=== PATIENT | male | born 1935 | race Caucasian/White ===

== ENCOUNTER → 2017-01-16 | Outpatient (CLI) | payer MEDICARE, MEDICAID ==
[~2017-01-16] MED LIST: ACET325T49 PO; ASP81CT PO; ATOR40TA PO; ATOR80TA PO; FENO135C PO; PGLT30T PO; PHN100C; RSG4T; SIMV40TA4 PO; SITA100T; WRF10T PO; WRF1T; WRF5T PO
[2017-01-16 10:54] LABS: BASOPHILS # (AUTO) 0.1 10^3/uL (0.0-0.1); BASOPHILS % (AUTO) 1 % (0-10); EOSINOPHILS # (AUTO) 0.3 10^3/uL (0.0-0.3); EOSINOPHILS % (AUTO) 2 % (0-10); LYMPHOCYTES # (AUTO) 1.9 X 10^3 (1.0-4.0); LYMPHOCYTES % (AUTO) 16 % (12-44); MEAN CORPUSCULAR HEMOGLOBIN 28 PG (25-34); MEAN CORPUSCULAR HGB CONC 34 G/DL (32-36); MEAN CORPUSCULAR VOLUME 84 FL (80-99); MEAN PLATELET VOLUME 9.9 FL (7.4-10.4); MONOCYTES # (AUTO) 1.6 X 10^3 (0.0-1.0); MONOCYTES % (AUTO) 14 % (0-12); NEUTROPHILS # (AUTO) 7.7 X 10^3 (1.8-7.8); NEUTROPHILS % (AUTO) 67 % (42-75); PLATELET COUNT 180 10^3/uL (130-400); RED BLOOD COUNT 4.55 10^6/uL (4.35-5.85); WHITE BLOOD COUNT 11.5 10^3/uL (4.3-11.0)
[2017-01-16 11:09] LABS: PROTHROMBIN TIME PATIENT 22.9 SEC (12.2-14.7)
[2017-01-16 11:20] LABS: ALANINE AMINOTRANSFERASE 19 U/L (0-55); ALBUMIN 3.8 GM/DL (3.2-4.5); ANION GAP 8 MMOL/L (5-14); ASPARTATE AMINO TRANSFERASE 20 U/L (5-34); BILIRUBIN,TOTAL 0.4 MG/DL (0.1-1.0); BLOOD UREA NITROGEN 14 MG/DL (7-18); BUN/CREATININE RATIO 17; CALCIUM 9.3 MG/DL (8.5-10.1); CARBON DIOXIDE 23 MMOL/L (21-32); CHLORIDE 105 MMOL/L (98-107); CHOLESTEROL 128 MG/DL (< 200); CREATININE SERUM 0.83 MG/DL (0.60-1.30); DIRECT LDL 58 MG/DL (1-129); GFR ESTIMATED > 60; GLUCOSE 179 MG/DL (70-105); SODIUM 136 MMOL/L (135-145); TOTAL PROTEIN 7.1 GM/DL (6.4-8.2); TRIGLYCERIDES 283 MG/DL (<150); VLDL CHOLESTEROL 57 MG/DL (5-40)
== END ==
LOC: LAB 10:31
PROVIDERS: ATTEND Internal Medicine Cardiovascular Disease
DX: I25.10 Atherosclerotic heart disease of native coronary artery without angina pectoris (principal); I65.23 Occlusion and stenosis of bilateral carotid arteries; I44.2 Atrioventricular block, complete; I70.213 Atherosclerosis of native arteries of extremities with intermittent claudication, bilateral legs; I35.0 Nonrheumatic aortic (valve) stenosis; Z72.0 Tobacco use; Z95.0 Presence of cardiac pacemaker
CPT/HCPCS: 36415; 80053; 80061; 85025; 85610

== ENCOUNTER 2017-01-19 06:53 | Day surgery (SDC) | payer MEDICARE, MEDICAID ==
[2017-01-19] VITALS (14 sets, daily range): BP systolic 115–171; BP diastolic 56–85
[~2017-01-19] VITALS: Ht 172.7 cm; Wt 82.6 kg
[~2017-01-19 06:53] MED LIST changes: -ACET325T49 PO; +HEParin 1000 UNIT/ML (10ML VIAL) FOR BOLUS ONE; +NS IV 1000 ML 3,000 ML ONE; -SIMV40TA4 PO
--- OUTSIDE RECORDS SUMMARY | 2017-01-19 07:04 | XMS REPORT | Continuity of Care Document ---
Author Author [facility] Organization [facility] Address Unknown Phone Unavailable Allergies Active Description Code Type Severity Reaction Onset Reported/Identified Relationship to Patient Clinical Status Yes No Known Drug Allergies [id number] Drug Allergy Mild N/A 02/24/2009 Medications Problems Procedures Results Encounters ACCT No. Visit Date/Time Discharge Status Pt. Type Provider Facility Loc./Unit Complaint [id number] 06/17/2013 10:03:00 2013 00:01:00 DIS Outpatient [id number] 06/17/2013 10:05:00 2013 23:59:59 CLS Outpatient [id number] 03/09/2013 15:03:00 2013 00:01:00 DIS Outpatient [id number] 11/23/2012 16:15:00 2012 00:01:00 DIS Outpatient [id number] 12/09/2012 08:28:00 2012 23:59:59 CLS Outpatient [id number] 01/25/2017 09:30:00 PEN Preadmit LUPE RUBY FACC , RAKESH PADILLA CCDS [facility] CARD PAD,CAD
[2017-01-19 07:26] LABS: MEAN PLATELET VOLUME 10.4 FL (7.4-10.4); RED BLOOD COUNT 5.2 10^6/uL (4.35-5.85); RED CELL DISTRIBUTION WIDTH 13.9 % (10.0-14.5); WHITE BLOOD COUNT 12.3 10^3/uL (4.3-11.0)
[2017-01-19 07:37] LABS: PROTHROMBIN TIME PATIENT 12.9 SEC (12.2-14.7)
[2017-01-19] MEDS ORDERED: NS IV 1000 ML 1,000 ML IV SCH (07:45)
[2017-01-19] MEDS ORDERED: INFLUENZA TRIvalent 2017-2018 0.5 ML/45 MCG SYR IM ONE (07:45)
[2017-01-19 07:48] LABS: ALANINE AMINOTRANSFERASE 22 U/L (0-55); ALBUMIN 4.4 GM/DL (3.2-4.5); ANION GAP 11 MMOL/L (5-14); ASPARTATE AMINO TRANSFERASE 26 U/L (5-34); BILIRUBIN,TOTAL 0.6 MG/DL (0.1-1.0); BLOOD UREA NITROGEN 13 MG/DL (7-18); BUN/CREATININE RATIO 15; CALCIUM 9.5 MG/DL (8.5-10.1); CARBON DIOXIDE 23 MMOL/L (21-32); CHLORIDE 106 MMOL/L (98-107); CHOLESTEROL 181 MG/DL (< 200); CREATININE SERUM 0.88 MG/DL (0.60-1.30); DIRECT LDL 96 MG/DL (1-129); GFR ESTIMATED > 60; GLUCOSE 150 MG/DL (70-105); POTASSIUM 4.3 MMOL/L (3.6-5.0); SODIUM 140 MMOL/L (135-145); TOTAL PROTEIN 8.3 GM/DL (6.4-8.2); TRIGLYCERIDES 237 MG/DL (<150); VLDL CHOLESTEROL 47 MG/DL (5-40)
[2017-01-19] MEDS ORDERED: SIMV40TA4 PO (08:39)
[2017-01-19] MEDS ORDERED: ACET325T49 PO (08:39)
[2017-01-19] MEDS ORDERED: diphenhydrAMINE 50 MG/ML INJ (BENADRYL) ONE (09:16)
[2017-01-19] MEDS ORDERED: MIDAZOLAM 5 MG/5 ML (VERSED) VIAL ONE (09:16)
[2017-01-19] MEDS ORDERED: fentaNYL INJECTION 100 MCG/2 ML AMP ONE (09:16)
--- NOTE | 2017-01-19 09:26 | Cardiac Procedure Note-CS/ASA ---
Pre-Procedure Note Pre-Op Procedure Note H&P Reviewed The H&P was reviewed, patient examined and no changes noted. Date H&P Reviewed: Jan 19, 2017 Time H&P Reviewed: 09:25 Conscious Sedation Pre-Proced Time Reviewed: :25 ASA Class: 3 Airway Mallampati Classification: ([place] appropriate class) I. II. III, IV Lungs Heart ASA score ASA 1: a normal healthy patient ASA 2: a patient with a mild systemic disease (mid diabetes, controlled hypertension, obesity ASA 3: a patient with a severe systemic disease that limits activity (angina , COPD, prior Myocardial infarction) ASA 4: a patient with an incapacitating disease that is a constant threat to life (CHF, renal failure) ASA 5: a moribund patient not expected to survive 24 hrs. (ruptured aneurysm) ASA 6: a declared brain patient whose organs are being harvested. For emergent operations, add the letter E after the classification Grade 2 Sedation Plan: Analgesia, Amnesia, Plan communicated to team members, Discussed options with patient/fam, Discussed risks with patient/fam Note The patient is an appropriate candidate to undergo the planned procedure, sedation, and anesthesia. The patient immediately re-assessed prior to indication. RAKESH ANDRADE MD FACP FAC CCDS Jan 19, 2017 09:25
[2017-01-19] MEDS ORDERED: CLOPIDOGREL 300 MG (PLAVIX) TABLET PO ONE (10:23)
[2017-01-19] MEDS ORDERED: ASPIRIN 81 MG CHEW (CHILDREN'S ASA) ONE (10:23)
[2017-01-19] MEDS ORDERED: warFARin 10 MG (COUMADIN) TAB PO SCH ×2 (10:30→18:00)
[2017-01-19] MEDS ORDERED: ACETAMINOPHEN 325 MG TABLET/CAPLET (TYLENOL) PO PRN (10:30)
[2017-01-19] MEDS ORDERED: PATIENT MAY USE OWN MEDS, ALL PO SCH (10:30)
[2017-01-19] MEDS: NS IV 1000 ML 1,000 ML IV SCH ×2 (11:20→14:48)
--- NOTE | 2017-01-19 17:38 | OPERATIVE REPORT ---
DATE OF SERVICE: 01/19/2017 PERIPHERAL ANGIOGRAPHY AND INTERVENTION REPORT: The patient is an 81-year-old gentleman who has multiple risk factors for peripheral arterial disease and is known to have moderate to severe peripheral arterial disease and has recently developed a nonhealing ulcer on the ball of the left little toe and is also developing an ulcer in the left heel. Noninvasive workup has been suggestive of severe peripheral arterial disease. Today, peripheral angiography was carried out with an intention to proceed with peripheral intervention to the left lower limb, if indicated and if suitable. Informed consent was obtained for these procedures. PROCEDURE: ABDOMINAL AORTIC ANGIOGRAPHY: He was brought to the cardiac catheterization laboratory in a fasting state. The right groin was prepared and draped in the usual sterile fashion. Lidocaine 1% was used for local anesthesia. Modified Seldinger technique was used to advance a 5-Chinese sheath into the right femoral artery. We advanced a pigtail catheter into the abdominal aorta and the tip of the catheter was placed at the level of L1 and abdominal aortic angiography was performed which included the abdominal aorta and the aortoiliac bifurcation. This showed an intact abdominal aorta and intact aortoiliac bifurcation with a normal bifurcation of the common iliac into the external and internal iliac arteries. We subsequently proceeded with the vessel of interest, namely the arterial supply to the left lower limb. Abdominal aortic angiography did not indicate any significant abdominal aortic aneurysm or dissection. The renal arteries were identified and do not exhibit a significant obstructive disease. The mesenteric arteries, to the extent seen, seem intact and without significant disease. The celiac axis is not well seen in these images. SELECTIVE ANGIOGRAPHY OF THE LEFT EXTERNAL ILIAC ARTERY WITH RUNOFF: We used a crossover catheter to engage the left common iliac artery. We advanced a Glidewire into the left common femoral artery. We removed the crossover catheter and advanced a straight catheter, the tip of which was placed in the left external iliac artery. We removed the wire and we were then able to perform a selective angiogram of the left external iliac artery with runoff down to the level of the foot. This indicated 99 to 100% stenosis of the left superficial femoral artery and there was hardly any flow beyond that. Therefore, we proceeded with percutaneous intervention to the mid left superficial femoral artery as described below. PERCUTANEOUS INTERVENTION TO THE LEFT SUPERFICIAL FEMORAL ARTERY: We used the straight catheter to advance a Storq wire and we were able to advance it across the severe mid vessel lesion in the left superficial femorals and we were able to place the tip of the wire in the left popliteal artery. We then removed the straight catheter and the 5-Chinese sheath and advanced a 6-Chinese 55 cm sheath, the tip of which was advanced into the proximal left superficial femoral artery. We left the wire across the lesion and then advanced an [place] 5 x 40 mm balloon. This was carefully positioned to cover the lesion in the mid left superficial femoral artery and the balloon was inflated to 16 atmospheres and held for 2 minutes. We then deflated the balloon and removed it and subsequent angiography revealed less than 10% residual stenosis at the previous site of 99 to 100% stenosis and the distal flow also improved and was found to be brisk in the popliteal artery and into the left peroneal and the left anterior tibial arteries. The left posterior tibial artery is occluded in its proximal portion. The left anterior tibial artery has moderately severe to severe diffuse disease, it is of a small caliber and seemed occluded in its very distal portion. The left peroneal artery is moderately and diffusely diseased and it is of a small caliber. It supplies collaterals to the distal posterior tibial and to the distal dorsalis pedis arteries. The leg arteries are generally of a very small caliber and are diffusely moderately to severely diseased and do not seem amenable to further intervention. We removed the sheath over a wire and advanced a short 6-Chinese sheath into the right femoral artery and we were able to perform angiography of the right common femoral artery through the sheath and Mynx was then used to achieve hemostasis. We gave 6000 units of intravenous heparin during the interventional procedure. CONCLUSIONS: 1. 99 to 100% mid vessel occlusion of the left superficial femoral artery which was reduced to less than 10% following successful balloon angioplasty. 2. Two-vessel runoff in the left leg consisting of the peroneal and anterior tibial arteries which themselves are of a small caliber and are diffusely moderately to severely diseased. The distal anterior tibial artery is occluded. The distal peroneal supplies collaterals to the dorsalis pedis and posterior tibial arteries. 3. No significant abdominal aortic aneurysm or dissection on abdominal aortic angiography. Job ID: [id number] DocumentID: [id number] Dictated Date: 01/19/2017 10:45:21 Document Restorer Date: 01/19/2017 16:16:36 Dictated By: RAKESH ANDRADE MD, MA, FACP, FACC, MTDD
[2017-01-19] MEDS ORDERED: SIMvastatin 40 MG (ZOCOR) TAB PO SCH (21:00)
[2017-01-20] VITALS: BP_SYST 132; BP_SYST 139; BP_DIAS 106; BP_DIAS 71
[2017-01-20 04:00] VITALS: BP 153/61
[2017-01-20 05:19] LABS: MEAN PLATELET VOLUME 10.3 FL (7.4-10.4); RED BLOOD COUNT 4.63 10^6/uL (4.35-5.85)
[2017-01-20 05:39] LABS: ANION GAP 11 MMOL/L (5-14); BLOOD UREA NITROGEN 11 MG/DL (7-18); BUN/CREATININE RATIO 14; CALCIUM 8.9 MG/DL (8.5-10.1); CARBON DIOXIDE 20 MMOL/L (21-32); CHLORIDE 109 MMOL/L (98-107); CREATININE SERUM 0.81 MG/DL (0.60-1.30); GFR ESTIMATED > 60; GLUCOSE 116 MG/DL (70-105); POTASSIUM 3.7 MMOL/L (3.6-5.0); SODIUM 140 MMOL/L (135-145)
[2017-01-20 08:00] VITALS: BP 182/89
--- NOTE | 2017-01-20 08:10 | Progress Note-Cardiology ---
Cardiology SOAP Progress Note Subjective: In bed. Spouse at the bedside. No c/o CP, dyspnea, palpitations. No c/o right groin discomfort. Wants to go home. Feels well today. Notes that the L foot discomfort is much less/resolved after yesterday's intervention Objective: I&O/Vital Signs Vital Sign - Last 12Hours 01/20/17 01/20/17 01/20/17 01/20/17 00:00 00:00 01:00 04:00 Temp 98.3 97.8 Pulse 60 63 Resp 12 B/P (MAP) 139/71 Pulse Ox 98 O2 Delivery Room Air 01/20/17 01/20/17 01/20/17 01/20/17 04:00 07:00 08:00 08:00 Temp 98.4 Pulse 64 66 Resp 12 B/P (MAP) 153/61 Pulse Ox 93 97 O2 Delivery Room Air Room Air Room Air Weight (Pounds): 182 Weight (Ounces): 0.0 Weight (Calculated Kilograms): 82.388385 Side: right Groin site without hematoma: Yes Condition: DP/PT pulses palpable, extremity w/d/p Bruising: mild bruising Constitutional: AAO x 3 Respiratory: No accessory muscle use, No respiratory distress, lungs clear to auscultation Cardiovascular: regular rate-rhythm, systolic murmur Gastrointestional: No tender, soft, audible bowel sounds, other (colostomy) Extremities: no lower extremity edema bilateral Neurologic/Psychiatric: other (Left sided hemiplegia) Skin: No rash, ulcerations Results/Procedures: Labs Laboratory Tests 01/19/17 12:15: Glucometer 97 01/20/17 04:50: White Blood Count 11.0, Red Blood Count 4.63, Hemoglobin 13.0L, Hematocrit 39L, Mean Corpuscular Volume 84, Mean Corpuscular Hemoglobin 28, Mean Corpuscular Hemoglobin Concent 33, Red Cell Distribution Width 14.0, Platelet Count 204, Mean Platelet Volume 10.3, Sodium Level 140, Potassium Level 3.7, Chloride Level 109H, Carbon Dioxide Level 20L, Anion Gap 11, Blood Urea Nitrogen 11, Creatinine 0.81, Estimat Glomerular Filtration Rate > 60, BUN/Creatinine Ratio 14, Glucose Level 116H, Calcium Level 8.9 Procedures Please refer to Dr. Heath's operative report of January 19, 2017 for details. A/P: Assessment: Peripheral arterial disease, moderately severe on peripheral angiography of (He had single-vessel run-off on the right side and a dual-vessel run- off below the knee) and severe on seg pressures of 11/26/16 Last peripheral angio on 01/19/17: 99 to 100% mid vessel occlusion of the left superficial femoral artery which was reduced to less than 10% following successful balloon angioplasty. Two-vessel runoff in the left leg consisting of the peroneal and anterior tibial arteries which themselves are of a small caliber and are diffusely diseased (mod to severe)/ The left distal anterior tibial artery is occluded. 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 This was functioning normally per last interrogation of November 2012. Has since not been compliant with f/u ECG on 01/20/17: Atrial pacing, RBBB and LAFB Severe aortic stenosis. Echo of 01/18/17: AoV area 0.8 sq cm with mean grad 33 mmHg, LVEF 60-65%, grade I diastolic dysfunction, mod TR, PASP 45 mmHg Non-compliance (see below) Mild coronary artery disease on cardiac catheterization of February 2009. Last myocardial perfusion imaging was on 01/18/2011. It did not show any myocardial ischemia or infarction and left ventricular ejection fraction was 70%. H/o anemia that is managed managed by Dr. Monet, etiology undetermined. Chronic warfarin anticoagulation following a stroke several years ago. The patient does not have any documented atrial fibrillation or significant carotid arterial disease but he and his family wish to continue with warfarin therapy. 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 Hyperlipidemia being treated with atorvastatin and Trilipix. Mild to moderate carotid arterial disease per ultrasonography of May 2011. Seizure disorder, being followed by Dr. Monet. Plan: Discussed results of peripheral angiogram with intervention Answered questions He did not bring home medications and does not wish to take medications from the hospital. Wants to go home and take his home medications. We have started him on Plavix. He is currently on warfarin and ASA. We will stop ASA for now since having him on all 3 agents places him at increased risk for bleeding. OK to discharge home Out pt f/u in 1-2 weeks Continue current medication regimen Resume warfarin, INR on Wednesday - warfarin managed by his PCP Dr. Monet Advised compliance with medications Physician Assessment Physician Assessment Feels well. Wishes to go home Lungs: clear Cor: reg with 3/6 MSM Legs: no hematoma, warm L foot A&R * As documented in our note above that I updated (italics) and as noted below * I discussed in detail with him and his the cardiac procedures and interventions of 01/19/17y * I have advised immediate and complete cessation of tobacco use * I discussed the rationale of his cardiac meds, their pros and cons, their potential side effects, and the importance of compliance * I have advised close outpatient f/u * We reviewed risk factor modification in detail EVAN LAMAR Jan 20, 2017 08:09 RAKESH HEATH MD FACP [facility] CCDS Jan 20, 2017 09:36
[2017-01-20] MEDS ORDERED: CLOP75TA28 PO (08:49)
--- NOTE | 2017-01-20 08:51 | Discharge Inst-Cardiology ---
Discharge Inst-Cardiac Discharge Medications New Medications: Clopidogrel Bisulfate (Clopidogrel) 75 Mg Tablet 75 MG PO DAILY, #90 TAB 3 Refills Continued Medications: Acetaminophen (Acetaminophen) 325 Mg Tablet 325 MG PO PRN, TAB Simvastatin (Simvastatin) 40 Mg Tablet 40 MG PO HS, TAB Sitagliptin Phosphate (Januvia) 100 Mg Tablet 100 MG DAILY Warfarin Sod (Coumadin 10 Mg) 10 Mg Tab 10 MG PO TUES AND THURS 10MG TU AND THURS Warfarin Sod (Coumadin 5 Mg) 5 Mg Tab 7.5 MG PO M,W,F,SA,HUGGINS MON, WED, WED, SAT, SUN Discontinued Medications: Aspirin (Aspirin 81 Mg Chew Tab) 81 Mg Chew 81 MG PO DAILY New, Converted or Re-Newed RX: RX on Chart Patient Instructions Patient Instructions: Lab: INR on Wednesday, January 25, 2017 F/U appt with Dr. Heath in 2 weeks EVAN LAMAR Jan 20, 2017 08:51
[2017-01-20] MEDS ORDERED: ASPIRIN 81 MG CHEW (CHILDREN'S ASA) PO SCH (09:00)
[2017-01-20] MEDS ORDERED: LINAGLIPTIN (TRADJENTA) 5 MG TABLET PO SCH (09:00)
[2017-01-20] MEDS ORDERED: CLOPIDOGREL 75 MG (PLAVIX) TABLET PO SCH (09:00)
[2017-01-20] MEDS ORDERED: warFARin 5 MG (COUMADIN) TAB PO SCH (18:00)
== END 2017-01-20 10:38 | disposition home or self-care (01) ==
LOC: CATH 06:53 → ICU 11:34 → CATH 01-20 10:38
PROVIDERS: ATTEND Internal Medicine Cardiovascular Disease
DX: I70.212 Atherosclerosis of native arteries of extremities with intermittent claudication, left leg (principal); L97.529 Non-pressure chronic ulcer of other part of left foot with unspecified severity; I25.10 Atherosclerotic heart disease of native coronary artery without angina pectoris; I35.0 Nonrheumatic aortic (valve) stenosis; E11.9 Type 2 diabetes mellitus without complications; E78.5 Hyperlipidemia, unspecified; D64.9 Anemia, unspecified; I69.354 Hemiplegia and hemiparesis following cerebral infarction affecting left non-dominant side; G40.909 Epilepsy, unspecified, not intractable, without status epilepticus; F17.220 Nicotine dependence, chewing tobacco, uncomplicated; Z95.0 Presence of cardiac pacemaker; Z79.84 Long term (current) use of oral hypoglycemic drugs; Z79.01 Long term (current) use of anticoagulants; Z91.14 Patient's other noncompliance with medication regimen
CPT/HCPCS: 36245; 36415; 37224; 75625; 75710; 80048; 80053; 80061; 82962; 85027; 85610; 85730; 87081; 93005

== ENCOUNTER → 2017-01-21 | Outpatient (CLI) | payer MEDICARE, MEDICAID ==
[~2017-01-21] MED LIST changes: +ACET325T49 PO; +CLOP75TA28 PO; -HEParin 1000 UNIT/ML (10ML VIAL) FOR BOLUS ONE; -NS IV 1000 ML 3,000 ML ONE; +SIMV40TA4 PO
[2017-01-21 10:46] LABS: INR 1.2 (0.8-1.4); PROTHROMBIN TIME PATIENT 14.8 SEC (12.2-14.7)
== END ==
LOC: LAB 09:22
PROVIDERS: ATTEND Nurse Practitioner Family
DX: I63.9 Cerebral infarction, unspecified (principal)
CPT/HCPCS: 36415; 85610

== ENCOUNTER → 2017-01-21 | Outpatient (CLI) | payer MEDICARE, MEDICAID ==
[~2017-01-21] VITALS: Ht 172.7 cm; Wt 82.6 kg
[~2017-01-21] MED LIST changes: +CATHETER FLUSH 10 ML SYR IV PRN; +REGADENOSON 0.4 MG/5 ML SYR (LEXISCAN) IV ONE
[2017-01-21 09:24] VITALS: BP 138/60
--- NOTE | 2017-01-23 11:39 | STRESS TEST ---
DATE OF SERVICE: 01/21/2017 RESTING AND POST REGADENOSON TECHNETIUM 99-M TETROFOSMIN SPECT CT IMAGING ORDERING PHYSICIAN: Dr. Heath. CLINICAL DIAGNOSES: Coronary artery disease. DESCRIPTION: Baseline images were carried out after injection of 10.69 mCi of technetium 99-m Tetrofosmin. This was followed by 0.4 mg regadenoson and 30.3 mCi of technetium 99-m Tetrofosmin for stress imaging. The electrocardiogram showed sinus rhythm with right bundle branch block and left anterior fascicular block at baseline. The electrocardiogram did not change significantly with the regadenoson infusion. Review of images at rest and following stress does not indicate any distinct perfusion defects consistent with significant myocardial ischemia or infarction. Some degree of diaphragmatic attenuation was seen both at rest and following regadenoson infusion. Gated images show normal global left ventricular systolic function with normal regional wall motion, including the diaphragmatic wall of the left ventricle. Left ventricular ejection fraction is calculated to be 55%. Left ventricular end diastolic volume is 72 mL. TID is absent (1.12). CONCLUSIONS: 1. No evidence of any significant myocardial ischemia or infarction on this study. 2. Normal regional wall motion. 3. Normal global left ventricular systolic function with a calculated ejection fraction of 55%. Job ID: [id number] DocumentID: [id number] Dictated Date: 01/22/2017 15:26:32 Production Posting Clerk Date: 01/22/2017 20:02:31 Dictated By: RAKESH HEATH MD, MA, FACP, FACC, MTDD
== END ==
LOC: CARD 07:20
PROVIDERS: ATTEND Internal Medicine Cardiovascular Disease
DX: I70.213 Atherosclerosis of native arteries of extremities with intermittent claudication, bilateral legs (principal); I25.10 Atherosclerotic heart disease of native coronary artery without angina pectoris; I65.23 Occlusion and stenosis of bilateral carotid arteries; I44.2 Atrioventricular block, complete; Z95.0 Presence of cardiac pacemaker; Z72.0 Tobacco use
CPT/HCPCS: 78452; 93017

== ENCOUNTER → 2017-04-06 | Outpatient (CLI) | payer MEDICARE, MEDICAID ==
[~2017-04-06] MED LIST changes: -CATHETER FLUSH 10 ML SYR IV PRN; -REGADENOSON 0.4 MG/5 ML SYR (LEXISCAN) IV ONE
== END ==
LOC: RAD 15:23
PROVIDERS: ATTEND Nurse Practitioner Family
DX: I70.213 Atherosclerosis of native arteries of extremities with intermittent claudication, bilateral legs (principal); I35.0 Nonrheumatic aortic (valve) stenosis; I25.10 Atherosclerotic heart disease of native coronary artery without angina pectoris; I65.23 Occlusion and stenosis of bilateral carotid arteries
CPT/HCPCS: 93923

== ENCOUNTER → 2017-04-07 | Outpatient (CLI) | payer MEDICARE, MEDICAID | LOC: WOUNDCARE 14:15 | PROVIDERS: ATTEND Surgery | DX: E11.621 Type 2 diabetes mellitus with foot ulcer (principal); L97.523 Non-pressure chronic ulcer of other part of left foot with necrosis of muscle; I70.245 Atherosclerosis of native arteries of left leg with ulceration of other part of foot; L03.116 Cellulitis of left lower limb; E11.42 Type 2 diabetes mellitus with diabetic polyneuropathy | CPT/HCPCS: 87070; 87075; 87077; 87205 ==

== ENCOUNTER → 2017-04-09 | Outpatient (CLI) | payer MEDICARE, MEDICAID ==
--- NOTE | 2017-04-09 13:00 | Diagnostic Imaging Report ---
INDICATION: Cellulitis of the left foot. TIME OF EXAMINATION: 01:05 p.m. FINDINGS: Three views of the left foot were obtained. The metatarsals are intact. The phalanges appear intact. The midfoot and hindfoot are unremarkable apart from a small plantar calcaneal spur. No fractures are seen. There are vascular calcifications present. No significant soft tissue swelling or soft tissue gas is seen. IMPRESSION: No acute abnormality is detected. Dictated by: Dictated on workstation # [id number]
== END ==
LOC: RAD 12:33
PROVIDERS: ATTEND Surgery
DX: L03.116 Cellulitis of left lower limb (principal)
CPT/HCPCS: 73630

== ENCOUNTER → 2017-04-09 | Outpatient (CLI) | payer MEDICARE, MEDICAID | LOC: WOUNDCARE 11:08 | PROVIDERS: ATTEND Surgery | DX: E11.621 Type 2 diabetes mellitus with foot ulcer (principal); L97.523 Non-pressure chronic ulcer of other part of left foot with necrosis of muscle; I70.245 Atherosclerosis of native arteries of left leg with ulceration of other part of foot; L03.116 Cellulitis of left lower limb; E11.42 Type 2 diabetes mellitus with diabetic polyneuropathy | CPT/HCPCS: 99212 ==

== ENCOUNTER → 2017-04-16 | Outpatient (CLI) | payer MEDICARE, MEDICAID | LOC: WOUNDCARE 11:17 | PROVIDERS: ATTEND Surgery | DX: E11.621 Type 2 diabetes mellitus with foot ulcer (principal); L97.523 Non-pressure chronic ulcer of other part of left foot with necrosis of muscle; I70.245 Atherosclerosis of native arteries of left leg with ulceration of other part of foot; E11.42 Type 2 diabetes mellitus with diabetic polyneuropathy | CPT/HCPCS: 11043 ==

== ENCOUNTER → 2017-04-23 | Outpatient (CLI) | payer MEDICARE, MEDICAID ==
[~2017-04-23] MED LIST changes: +METF-478 PO; +METF500T4 PO; +RT-ALBUINH IH; +SITA100T12 PO; +SODI473S7 TP; +WARF5TAB8 PO
[2017-04-23 12:57] LABS: PROTHROMBIN TIME PATIENT 69.9 SEC (12.2-14.7)
[2017-04-23 12:58] LABS: INR 8.7 (0.8-1.4)
== END ==
LOC: LAB 12:03
PROVIDERS: ATTEND Surgery
DX: I70.245 Atherosclerosis of native arteries of left leg with ulceration of other part of foot (principal); E11.621 Type 2 diabetes mellitus with foot ulcer; E11.42 Type 2 diabetes mellitus with diabetic polyneuropathy; L97.523 Non-pressure chronic ulcer of other part of left foot with necrosis of muscle; L03.116 Cellulitis of left lower limb
CPT/HCPCS: 36415; 85610

== ENCOUNTER → 2017-04-23 | Outpatient (CLI) | payer MEDICARE, MEDICAID | LOC: WOUNDCARE 10:48 | PROVIDERS: ATTEND Surgery | DX: L97.524 Non-pressure chronic ulcer of other part of left foot with necrosis of bone (principal); M86.472 Chronic osteomyelitis with draining sinus, left ankle and foot; M65.172 Other infective (teno)synovitis, left ankle and foot; E11.621 Type 2 diabetes mellitus with foot ulcer; E11.42 Type 2 diabetes mellitus with diabetic polyneuropathy; I70.245 Atherosclerosis of native arteries of left leg with ulceration of other part of foot | CPT/HCPCS: 11044; 87070; 87075; 87205 ==

== ENCOUNTER 2017-04-24 21:29 | Inpatient (IN) | payer MEDICARE, MEDICAID ==
[~2017-04-24] VITALS: Ht 172.7 cm; Wt 75.3 kg
[~2017-04-24 21:29] MED LIST changes: -METF-478 PO; -METF500T4 PO; -RT-ALBUINH IH; -SITA100T12 PO; -SODI473S7 TP; -WARF5TAB8 PO
--- OUTSIDE RECORDS SUMMARY | 2017-04-24 21:34 | XMS REPORT | Continuity of Care Document ---
Author Author [facility] Organization [facility] Address Unknown Phone Unavailable Allergies Active Description Code Type Severity Reaction Onset Reported/Identified Relationship to Patient Clinical Status Yes No Known Drug Allergies [id number] Drug Allergy Mild N/A 02/24/2009 Medications There is no data. Problems Date Dx Coded Attending Type Code Diagnosis Diagnosed By 10/20/2011 Ot 272.4 HYPERLIPIDEMIA NEC/NOS 10/20/2011 Ot 285.9 ANEMIA NOS 10/20/2011 Ot 414.01 CORONARY ATHEROSCLEROSIS OF [place] CORON 10/20/2011 Ot 427.31 ATRIAL FIBRILLATION 10/20/2011 Ot 427.32 ATRIAL FLUTTER 10/20/2011 Ot V12.59 HX- CIRCULATORY SYST DIS,NEC 10/20/2011 Ot V58.61 ANTICOAGULANTS,LT,CURRENT USE 10/20/2011 Ot V58.69 OTH MED,LT, CURRENT USE 01/19/2012 Ot 272.4 HYPERLIPIDEMIA NEC/NOS 01/19/2012 Ot 285.9 ANEMIA NOS 01/19/2012 Ot 414.01 CORONARY ATHEROSCLEROSIS OF [place] CORON 01/19/2012 Ot 427.31 ATRIAL FIBRILLATION 01/19/2012 Ot 427.32 ATRIAL FLUTTER 01/19/2012 Ot V12.59 HX- CIRCULATORY SYST DIS,NEC 01/19/2012 Ot V58.61 ANTICOAGULANTS,LT,CURRENT USE 01/19/2012 Ot V58.69 OTH MED,LT, CURRENT USE 08/03/2012 Ot 427.31 ATRIAL FIBRILLATION 08/03/2012 Ot V58.61 ANTICOAGULANTS,LT,CURRENT USE 01/10/2013 BAIMA, EVAN L STRUCTURAL LAYOUT WORKER Ot 427.31 ATRIAL FIBRILLATION 01/10/2013 BAIMA, EVAN L STRUCTURAL LAYOUT WORKER Ot V58.61 ANTICOAGULANTS,LT,CURRENT USE 04/12/2013 BAIMA, EVAN L STRUCTURAL LAYOUT WORKER Ot 427.31 ATRIAL FIBRILLATION 04/12/2013 BAIMA, EVAN L STRUCTURAL LAYOUT WORKER Ot V58.61 ANTICOAGULANTS,LT,CURRENT USE 09/15/2013 BAIMA, EVAN L STRUCTURAL LAYOUT WORKER Ot 427.31 ATRIAL FIBRILLATION 09/15/2013 EVAN LAMAR STRUCTURAL LAYOUT WORKER Ot V58.61 ANTICOAGULANTS,LT,CURRENT USE 01/16/2017 LUPE RUBY FACC, ALI FACP CCDS Ot I25.10 ATHSCL HEART DISEASE OF [place] CORONARY 01/17/2017 LUPE RUBY FACC, ALI FACP CCDS Ot I25.10 ATHSCL HEART DISEASE OF [place] CORONARY 01/19/2017 LUPE RUBY FACC, ALI FACP CCDS Ot I25.10 ATHSCL HEART DISEASE OF [place] CORONARY 01/19/2017 LUPE RUBY FACC, ALI FACP CCDS Ot I35.0 NONRHEUMATIC AORTIC (VALVE) STENOSIS 01/19/2017 LUPE RUBY FACC, ALI FACP CCDS Ot I44.2 ATRIOVENTRICULAR BLOCK, COMPLETE 01/19/2017 LUPE RUBY FACC, ALI FACP CCDS Ot I65.23 OCCLUSION AND STENOSIS OF BILATERAL HOOD 01/19/2017 LUPE RUBY FACC, ALI FACP CCDS Ot 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 [place] ARTERIES OF EXTRM W INTRMT 01/19/2017 LUPE RUBY FACC, ALI FACP CCDS Ot Z72.0 TOBACCO USE 01/19/2017 LUPE RUBY FACC, ALI FACP CCDS Ot Z95.0 PRESENCE OF CARDIAC PACEMAKER 01/20/2017 LUPE RUBY FACC, RAKESH FACP CCDS Ot D64.9 ANEMIA, UNSPECIFIED 01/20/2017 LUPE RUBY FACC, ALI FACP CCDS Ot E11.9 TYPE 2 DIABETES MELLITUS WITHOUT COMPLIC 01/20/2017 LUPE RUBY FACC, ALI FACP CCDS Ot E78.5 HYPERLIPIDEMIA, UNSPECIFIED 01/20/2017 LUPE RUBY FACC, ALI FACP CCDS Ot F17.220 NICOTINE DEPENDENCE, CHEWING TOBACCO, UN 01/20/2017 LUPE RUBY FACC, ALI FACP CCDS Ot G40.909 EPILEPSY, UNSP, NOT INTRACTABLE, WITHOUT 01/20/2017 LUPE RUBY FACC, ALI FACP CCDS Ot I25.10 ATHSCL HEART DISEASE OF [place] CORONARY 01/20/2017 LUPE RUBY FACC, RAKESH FACP CCDS Ot I35.0 NONRHEUMATIC AORTIC (VALVE) STENOSIS 01/20/2017 LUPE RUBY FACC, ALI FACP CCDS Ot I69.354 HEMIPLGA FOLLOWING CEREBRAL INFRC AFFECT 01/20/2017 LUPE RUBY FACC, RAKESH FACP CCDS Ot 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 01/20/2017 LUPE RUBY FACC, RAKEHS FACP CCDS Ot 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 01/20/2017 LUPE RUBY FACC, RAKESH FACP CCDS Ot Z79.01 FOOD AND BEVERAGE INTERN (CURRENT) USE OF ANTICOAGULANT 01/20/2017 LUPE RUBY FACC, ALI FACP CCDS Ot Z79.84 SNF (CURRENT) USE OF ORAL HYPOGLYC 01/20/2017 LUPE RUBY FACC, RAKESH FACP CCDS Ot Z91.14 PATIENT'S OTHER NONCOMPLIANCE WITH MEDIC 01/20/2017 LUPE RUBY FACC, RAKESH FACP CCDS Ot Z95.0 PRESENCE OF CARDIAC PACEMAKER 01/27/2017 EVAN LAMAR STRUCTURAL LAYOUT WORKER Ot I63.9 CEREBRAL INFARCTION, UNSPECIFIED 02/04/2017 LUPE RUBY FACC, RAKESH FACP CCDS Ot D64.9 ANEMIA, UNSPECIFIED 02/04/2017 LUPE RUBY FACC, ALI FACP CCDS Ot E11.9 TYPE 2 DIABETES MELLITUS WITHOUT COMPLIC 02/04/2017 LUPE RUBY FACC, ALI FACP CCDS Ot E78.5 HYPERLIPIDEMIA, UNSPECIFIED 02/04/2017 LUPE RUBY FACC, ALI FACP CCDS Ot F17.220 NICOTINE DEPENDENCE, CHEWING TOBACCO, UN 02/04/2017 LUPE RUBY FACC, ALI FACP CCDS Ot G40.909 EPILEPSY, UNSP, NOT INTRACTABLE, WITHOUT 02/04/2017 LUPE RUBY FACC, ALI FACP CCDS Ot I25.10 ATHSCL HEART DISEASE OF [place] CORONARY 02/04/2017 LUPE RUBY FACC, RAKESH FACP CCDS Ot I35.0 NONRHEUMATIC AORTIC (VALVE) STENOSIS 02/04/2017 LUPE RUBY FACC, ALI FACP CCDS Ot I69.354 HEMIPLGA FOLLOWING CEREBRAL INFRC AFFECT 02/04/2017 LUPE RUBY FACC, ALI FACP CCDS Ot 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 02/04/2017 LUPE RUBY FACC, ALI FACP CCDS Ot 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 02/04/2017 LUPE RUBY FACC, ALI FACP CCDS Ot Z79.01 SNF (CURRENT) USE OF ANTICOAGULANT 02/04/2017 RAKESH ANDRADE MD, FACC FACP CCDS Ot Z79.84 FOOD AND BEVERAGE INTERN (CURRENT) USE OF ORAL HYPOGLYC 02/04/2017 LUPE RUBY FACC, ALI FACP CCDS Ot Z91.14 PATIENT'S OTHER NONCOMPLIANCE WITH MEDIC 02/04/2017 LUPE RUBY FACC, RAKESH FACP CCDS Ot Z95.0 PRESENCE OF CARDIAC PACEMAKER 02/08/2017 LUPE RUBY FACC, RAKESH FACP CCDS Ot D64.9 ANEMIA, UNSPECIFIED 02/08/2017 LUPE RUBY FACC, RAKESH FACP CCDS Ot E11.9 TYPE 2 DIABETES MELLITUS WITHOUT COMPLIC 02/08/2017 LUPE RUBY FACC, RAKESH FACP CCDS Ot E78.5 HYPERLIPIDEMIA, UNSPECIFIED 02/08/2017 LUPE RUBY FACC, RAKESH FACP CCDS Ot F17.220 NICOTINE DEPENDENCE, CHEWING TOBACCO, UN 02/08/2017 LUPE RUBY FACC, RAKESH FACP CCDS Ot G40.909 EPILEPSY, UNSP, NOT INTRACTABLE, WITHOUT 02/08/2017 LUPE RUBY FACC, RAKESH FACP CCDS Ot I25.10 ATHSCL HEART DISEASE OF [place] CORONARY 02/08/2017 LUPE RUBY FACC, RAKESH FACP CCDS Ot I35.0 NONRHEUMATIC AORTIC (VALVE) STENOSIS 02/08/2017 LUPE RUBY FACC, RAKESH FACP CCDS Ot I69.354 HEMIPLGA FOLLOWING CEREBRAL INFRC AFFECT 02/08/2017 LUPE RUBY FACC, RAKESH FACP CCDS Ot 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 02/08/2017 LUPE RUBY FACC, RAKESH FACP CCDS Ot 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2 ATRIOVENTRICULAR BLOCK, COMPLETE 02/08/2017 LUPE RUBY FACC, ALI FACP CCDS Ot I65.23 OCCLUSION AND STENOSIS OF BILATERAL HOOD 02/08/2017 LUPE RUBY FACC, ALI FACP CCDS Ot 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 [place] ARTERIES OF EXTRM W INTRMT 02/08/2017 LUPE RUBY FACC, ALI FACP CCDS Ot Z72.0 TOBACCO USE 02/08/2017 LUPE RUBY FACC, ALI FACP CCDS Ot Z95.0 PRESENCE OF CARDIAC PACEMAKER 02/15/2017 LUPE RUBY FACC, ALI FACP CCDS Ot I25.10 ATHSCL HEART DISEASE OF [place] CORONARY 02/15/2017 LUPE RUBY FACC, ALI FACP CCDS Ot I44.2 ATRIOVENTRICULAR BLOCK, COMPLETE 02/15/2017 LUPE RUBY FACC, ALI FACP CCDS Ot I65.23 OCCLUSION AND STENOSIS OF BILATERAL HOOD 02/15/2017 LUPE RUBY FACC, ALI FACP CCDS Ot 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 [place] ARTERIES OF EXTRM W INTRMT 02/15/2017 LUPE RUBY FACC, ALI FACP CCDS Ot Z72.0 TOBACCO USE 02/15/2017 LUPE RUBY FACC, ALI FACP CCDS Ot Z95.0 PRESENCE OF CARDIAC PACEMAKER 02/15/2017 EVAN LAMAR STRUCTURAL LAYOUT WORKER Ot I63.9 CEREBRAL INFARCTION, UNSPECIFIED 02/15/2017 LUPE RUBY FACC, ALI FACP CCDS Ot I25.10 ATHSCL HEART DISEASE OF [place] CORONARY 02/15/2017 LUPE RUBY FACC, ALI FACP CCDS Ot I35.0 NONRHEUMATIC AORTIC (VALVE) STENOSIS 02/15/2017 LUPE RUBY FACC, ALI FACP CCDS Ot I44.2 ATRIOVENTRICULAR BLOCK, COMPLETE 02/15/2017 LUPE RUBY FACC, ALI FACP CCDS Ot I65.23 OCCLUSION AND STENOSIS OF BILATERAL HOOD 02/15/2017 LUPE RUBY FACC, ALI FACP CCDS Ot 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 [place] ARTERIES OF EXTRM W INTRMT 02/15/2017 LUPE RUBY FACC, ALI FACP CCDS Ot Z72.0 TOBACCO USE 02/15/2017 LUPE RUBY FACC, ALI FACP CCDS Ot Z95.0 PRESENCE OF CARDIAC PACEMAKER 02/16/2017 LUPE RUBY FACC, ALI FACP CCDS Ot I25.10 ATHSCL HEART DISEASE OF [place] CORONARY 02/16/2017 LUPE RUBY FACC, ALI FACP CCDS Ot I44.2 ATRIOVENTRICULAR BLOCK, COMPLETE 02/16/2017 LUPE RUBY FACC, ALI FACP CCDS Ot I65.23 OCCLUSION AND STENOSIS OF BILATERAL HOOD 02/16/2017 LUPE RUBY FACC, ALI FACP CCDS Ot 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 [place] ARTERIES OF EXTRM W INTRMT 02/16/2017 LUPE RUBY FACC, ALI FACP CCDS Ot Z72.0 TOBACCO USE 02/16/2017 LUPE RUBY FACC, ALI FACP CCDS Ot Z95.0 PRESENCE OF CARDIAC PACEMAKER 02/16/2017 EVAN LAMAR STRUCTURAL LAYOUT WORKER Ot I63.9 CEREBRAL INFARCTION, UNSPECIFIED 04/05/2017 LUPE RUBY FACDeyvi, ALI FACP CCDS Ot 424.1 AORTIC VALVE DISORDER 04/05/2017 LUPE RUBY FACC, ALI FACP CCDS Ot V58.69 OTH MED,LT,CURRENT USE 04/05/2017 LUPE SUTHERLANDC, ALI FACP CCDS Ot V58.83 ENCOUNTER FOR THERAPEUTIC DRUG MONITORIN 04/05/2017 EVAN LAMAR STRUCTURAL LAYOUT WORKER Ot 272.4 HYPERLIPIDEMIA NEC/NOS 04/05/2017 EVAN LAMAR STRUCTURAL LAYOUT WORKER Ot 401.9 HYPERTENSION NOS 04/05/2017 Ot 427.31 ATRIAL FIBRILLATION 04/05/2017 Ot V58.61 ANTICOAGULANTS,LT,CURRENT USE 04/05/2017 LUPE RUBY FACDeyvi, ALI FACP CCDS Ot I25.10 ATHSCL HEART DISEASE OF [place] CORONARY 04/05/2017 LUPE RUBY FACC, ALI FACP CCDS Ot I44.2 ATRIOVENTRICULAR BLOCK, COMPLETE 04/05/2017 LUPE RUBY FACC, ALI FACP CCDS Ot I65.23 OCCLUSION AND STENOSIS OF BILATERAL HOOD 04/05/2017 LUPE RUBY FACC, ALI FACP CCDS Ot 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 [place] ARTERIES OF EXTRM W INTRMT 04/05/2017 LUPE RUBY FACC, ALI FACP CCDS Ot Z72.0 TOBACCO USE 04/05/2017 LUPE RUBY FACC, ALI FACP CCDS Ot Z95.0 PRESENCE OF CARDIAC PACEMAKER 04/05/2017 LUPE RUBY FACC, ALI FACP CCDS Ot I25.10 ATHSCL HEART DISEASE OF [place] CORONARY 04/05/2017 LUPE RUBY FACC, ALI FACP CCDS Ot I35.0 NONRHEUMATIC AORTIC (VALVE) STENOSIS 04/05/2017 LUPE RUBY FACC, ALI FACP CCDS Ot I44.2 ATRIOVENTRICULAR BLOCK, COMPLETE 04/05/2017 LUPE RUBY FACC, ALI FACP CCDS Ot I65.23 OCCLUSION AND STENOSIS OF BILATERAL HOOD 04/05/2017 LUPE RUBY FACC, ALI FACP CCDS Ot 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 [place] ARTERIES OF EXTRM W [facility] 04/05/2017 LUPE SUTHERLANDC, ALI FACP CCDS Ot Z72.0 TOBACCO USE 04/05/2017 LUPE RUBY FACC, ALI FACP CCDS Ot Z95.0 PRESENCE OF CARDIAC PACEMAKER 04/05/2017 EVAN LAMAR STRUCTURAL LAYOUT WORKER Ot I63.9 CEREBRAL INFARCTION, UNSPECIFIED 04/08/2017 MIHAELA CHEEMA MD, Ot E11.42 TYPE 2 DIABETES MELLITUS WITH DIABETIC P 04/08/2017 MIHAELA CHEEMA MD, Ot E11.621 TYPE 2 DIABETES MELLITUS WITH FOOT ULCER 04/08/2017 MIHAELA CHEEMA MD, Ot 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 [facility] 04/08/2017 MIHAELA CHEEMA MD, Ot L03.116 CELLULITIS OF LEFT LOWER LIMB 04/08/2017 MIHAELA CHEEMA MD, Ot L97.523 NON-PRS CHRONIC ULCER OTH PRT LEFT FOOT 04/12/2017 MIHAELA CHEEMA MD, Ot E11.42 TYPE 2 DIABETES MELLITUS WITH DIABETIC P 04/12/2017 MIHAELA CHEEMA MD, Ot E11.621 TYPE 2 DIABETES MELLITUS WITH FOOT ULCER 04/12/2017 MIHAELA CHEEMA MD Ot 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 [facility] 04/12/2017 MIHAELA CHEEMA MD, Ot L03.116 CELLULITIS OF LEFT LOWER LIMB 04/12/2017 MIHAELA CHEEMA MD, Ot L97.523 NON-PRS CHRONIC ULCER OTH PRT LEFT FOOT 04/12/2017 MIHAELA CHEEMA MD, Ot E11.42 TYPE 2 DIABETES MELLITUS WITH DIABETIC P 04/12/2017 MIHAELA CHEEMA MD, Ot E11.621 TYPE 2 DIABETES MELLITUS WITH FOOT ULCER 04/12/2017 MIHAELA CHEEMA MD, Ot 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 Results Test Result Range Automated blood complete blood count (hemogram) panel - 01/19/17 07:20 Blood leukocytes automated count (number/volume) 12.3 10*3/uL 4.3-11.0 Blood erythrocytes automated count (number/volume) 5.20 10*6/uL 4.35-5.85 Venous blood hemoglobin measurement (mass/volume) 14.4 g/dL 13.3-17.7 Blood hematocrit (volume fraction) 43 % 40-54 Automated erythrocyte mean corpuscular volume 83 [foz_us] 80-99 Automated erythrocyte mean corpuscular hemoglobin (mass per erythrocyte) 28 pg 25-34 Automated erythrocyte mean corpuscular hemoglobin concentration measurement ( mass/volume) 33 g/dL 32-36 Automated erythrocyte distribution width ratio 13.9 % 10.0-14.5 Automated blood platelet count (count/volume) 203 10*3/uL 130-400 Automated blood platelet mean volume measurement 10.4 [foz_us] 7.4-10.4 PT panel in platelet poor plasma by coagulation assay - 01/19/17 07:20 Prothrombin time (PT) in platelet poor plasma by coagulation assay 12.9 s 12.2-14.7 INR in platelet poor plasma or blood by coagulation assay 1.0 0.8-1.4 Activated partial thromboplastin time (aPTT) in platelet poor plasma bycoagulation assay - 01/19/17 07:20 Activated partial thromboplastin time (aPTT) in platelet poor plasma bycoagulation assay 30 s 24-35 Comprehensive metabolic panel - 01/19/17 07:20 Serum or plasma sodium measurement (moles/volume) 140 mmol/L 135-145 Serum or plasma potassium measurement (moles/volume) 4.3 mmol/L 3.6-5.0 Serum or plasma chloride measurement (moles/volume) 106 mmol/L 98-107 Carbon dioxide 23 mmol/L 21-32 Serum or plasma anion gap determination (moles/volume) 11 mmol/L 5-14 Serum or plasma urea nitrogen measurement (mass/volume) 13 mg/dL 7-18 Serum or plasma creatinine measurement (mass/volume) 0.88 mg/dL 0.60-1.30 Serum or plasma urea nitrogen/creatinine mass ratio 15 NRG Serum or plasma creatinine measurement with calculation of estimated glomerular filtration rate > NRG Serum or plasma glucose measurement (mass/volume) 150 mg/dL 70-105 Serum or plasma calcium measurement (mass/volume) 9.5 mg/dL 8.5-10.1 Serum or plasma total bilirubin measurement (mass/volume) 0.6 mg/dL 0.1-1.0 Serum or plasma alkaline phosphatase measurement (enzymatic activity/volume) 72 U/L 40-136 Serum or plasma aspartate aminotransferase measurement (enzymatic activity/ volume) 26 U/L 5-34 Serum or plasma alanine aminotransferase measurement (enzymatic activity/volume ) 22 U/L 0-55 Serum or plasma protein measurement (mass/volume) 8.3 g/dL 6.4-8.2 Serum or plasma albumin measurement (mass/volume) 4.4 g/dL 3.2-4.5 Lipid 1996 panel - 01/19/17 07:20 Serum or plasma triglyceride measurement (mass/volume) 237 mg/dL <150 Serum or plasma cholesterol measurement (mass/volume) 181 mg/dL < 200 Serum or plasma cholesterol in HDL measurement (mass/volume) 46 mg/ dL 40-60 Cholesterol in LDL [mass/volume] in serum or plasma by direct assay 96 mg/dL 1-129 Serum or plasma cholesterol in VLDL measurement (mass/volume) 47 mg/ dL 5-40 Methicillin resistant Staphylococcus aureus (MRSA) screening culture - 07:20 Methicillin resistant Staphylococcus aureus (MRSA) screening culture NEG NRG Capillary blood glucose measurement by glucometer (mass/volume) - 01/19/17 12: 15 Capillary blood glucose measurement by glucometer (mass/volume) 97 mg/dL 70-110 Automated blood complete blood count (hemogram) panel - 01/20/17 04:50 Blood leukocytes automated count (number/volume) 11.0 10*3/uL 4.3-11.0 Blood erythrocytes automated count (number/volume) 4.63 10*6/uL 4.35-5.85 Venous blood hemoglobin measurement (mass/volume) 13.0 g/dL 13.3-17.7 Blood hematocrit (volume fraction) 39 % 40-54 Automated erythrocyte mean corpuscular volume 84 [foz_us] 80-99 Automated erythrocyte mean corpuscular hemoglobin (mass per erythrocyte) 28 pg 25-34 Automated erythrocyte mean corpuscular hemoglobin concentration measurement ( mass/volume) 33 g/dL 32-36 Automated erythrocyte distribution width ratio 14.0 % 10.0-14.5 Automated blood platelet count (count/volume) 204 10*3/uL 130-400 Automated blood platelet mean volume measurement 10.3 [foz_us] 7.4-10.4 Whole blood basic metabolic panel - 01/20/17 04:50 Serum or plasma sodium measurement (moles/volume) 140 mmol/L 135-145 Serum or plasma potassium measurement (moles/volume) 3.7 mmol/L 3.6-5.0 Serum or plasma chloride measurement (moles/volume) 109 mmol/L 98-107 Carbon dioxide 20 mmol/L 21-32 Serum or plasma anion gap determination (moles/volume) 11 mmol/L 5-14 Serum or plasma urea nitrogen measurement (mass/volume) 11 mg/dL 7-18 Serum or plasma creatinine measurement (mass/volume) 0.81 mg/dL 0.60-1.30 Serum or plasma urea nitrogen/creatinine mass ratio 14 NRG Serum or plasma creatinine measurement with calculation of estimated glomerular filtration rate > NRG Serum or plasma glucose measurement (mass/volume) 116 mg/dL 70-105 Serum or plasma calcium measurement (mass/volume) 8.9 mg/dL 8.5-10.1 Bacteria identification in isolate by anaerobe culture - 04/07/17 15:25 QUANTITY OF GROWTH Moderate Growth NRG Bacteria identification in isolate by anaerobe culture [id number] NRG Gram stain microscopy - 04/07/17 15:25 GRAM STAIN RESULT FEW GRAM POSITIVE COCCI NRG Bacteria identification in wound by culture - 04/07/17 15:25 Bacteria identification in wound by culture [id number] NRG FREE TEXT EXTERNAL SENSITIVITY REPORTED AT 0904-09-17 NRG QUANTITY OF GROWTH Moderate Growth NRG MRSA AGAR MRSA isolated (Screening test for MRSA is positive) NRG CALL POSITIVES (F1 HELP) CALLED TO WOUND CARE 04/08/17 9:30 BY Mario [facility] Bacterial susceptibility panel - 04/07/17 15:25 Gentamicin susceptibility test by minimum inhibitory concentration S NRG Erythromycin susceptibility test by minimum inhibitory concentration 0.5 NRG Vancomycin susceptibility test by minimum inhibitory concentration 1 NRG Ampicillin susceptibility test by minimum inhibitory concentration < = NRG Linezolid susceptibility test by minimum inhibitory concentration 2 NR Bacterial susceptibility panel - 04/07/17 15:25 Oxacillin susceptibility test by minimum inhibitory concentration > = NRG Gentamicin susceptibility test by minimum inhibitory concentration < = NRG Clindamycin susceptibility test by minimum inhibitory concentration 1 NRG Erythromycin susceptibility test by minimum inhibitory concentration 4 NRG Trimethoprim/sulfamethoxazole susceptibility test by minimum inhibitoryconcentration S NRG Vancomycin susceptibility test by minimum inhibitory concentration < = NRG Levofloxacin susceptibility test by minimum inhibitory concentration 4 NRG Rifampin susceptibility test by minimum inhibitory concentration 1 NRG Tetracycline susceptibility test by minimum inhibitory concentration 2 NRG Ciprofloxacin susceptibility test by minimum inhibitory concentration R NRG Linezolid susceptibility test by minimum inhibitory concentration 2 NRG Gram stain microscopy - 04/23/17 11:21 GRAM STAIN RESULT FEW WBC'S, NO BACTERIA OBSERVED NRG Bacteria identification in wound by culture - 04/23/17 11:21 Bacteria identification in wound by culture NG NRG Gram stain microscopy - 04/23/17 11:28 GRAM STAIN RESULT NO WBC'S OR BACTERIA OBSERVED NRG Bacteria identification in wound by culture - 04/23/17 11:28 Bacteria identification in wound by culture NG NRG Gram stain microscopy - 04/23/17 11:32 GRAM STAIN RESULT FEW WBC'S, NO BACTERIA OBSERVED NRG Bacteria identification in wound by culture - 04/23/17 11:32 Bacteria identification in wound by culture NG NRG PT panel in platelet poor plasma by coagulation assay - 04/23/17 12:12 Prothrombin time (PT) in platelet poor plasma by coagulation assay 69.9 s 12.2-14.7 INR in platelet poor plasma or blood by coagulation assay 8.7 0.8-1.4 Encounters ACCT No. Visit Date/Time Discharge Status Pt. Type Provider Facility Loc./Unit Complaint [id number] 04/16/2017 11:17:00 04/16/2017 23:59:59 CLS Outpatient MIHAELA CHEEMA MD [facility] WOUND[facility] [id number] 04/09/2017 12:33:00 04/09/2017 23:59:59 CLS Outpatient MIHAELA CHEEMA MD [facility] RAD E11.621 [id number] 04/09/2017 11:08:00 04/09/2017 23:59:59 CLS Outpatient MIHAELA CHEEMA MD [facility] WOUND[facility] [id number] 04/07/2017 14:15:00 04/07/2017 23:59:59 CLS Outpatient MIHAELA CHEEMA MD [facility] WOUND[facility] [id number] 04/06/2017 15:23:00 04/06/2017 23:59:59 CLS Outpatient EVAN LAMAR [facility] RAD I70.213 PAD [id number] 01/25/2017 09:30:00 01/25/2017 23:59:59 CLS Preadmit RAKESH ANDRADE MD, FACC, FACP CCDS [facility] CARD PAD,CAD [id number] 01/21/2017 09:22:00 01/21/2017 23:59:59 CLS Outpatient EVAN LAMAR [facility] LAB I63.9 [id number] 01/21/2017 07:20:00 01/21/2017 23:59:59 CLS Outpatient RAKESH ANDRADE MD, FACC, FACP CCDS [facility] CARD CAD [id number] 01/19/2017 06:53:00 01/20/2017 10:38:00 DIS Outpatient RAKESH ANDRADE MD, FACCP CCDS [facility] CATH PAD,CAD,DM [id number] 01/16/2017 10:31:00 01/16/2017 23:59:59 CLS Outpatient LUPE RUBY FACC, RAKESH PADILLA CCDS [facility] LAB CAD, CARDIAC PACEMAKER, CAROTID ARTERIAL DISEASE [id number] 06/17/2013 10:03:00 09/15/2013 00:01:00 DIS Outpatient BAIEVAN LAKHANI L STRUCTURAL LAYOUT WORKER [facility] LAB COUMADIN TX,CVA,A- FLUTTER,AFIB [id number] 06/17/2013 10:05:00 06/17/2013 23:59:59 CLS Outpatient EVAN LAMAR L STRUCTURAL LAYOUT WORKER [facility] LAB HYPERTENSION, HYPERLIPIDEMIA, STATIN TX [id number] 03/09/2013 15:03:00 04/12/2013 00:01:00 DIS Outpatient EVAN LAMAR L STRUCTURAL LAYOUT WORKER [facility] LAB COUMADIN TX,CVA,A- FLUTTER,AFIB [id number] 11/23/2012 16:15:00 01/10/2013 00:01:00 DIS Outpatient EVAN LAMAR L STRUCTURAL LAYOUT WORKER [facility] LAB COUMADIN TX,CVA,A- FLUTTER,AFIB [id number] 12/09/2012 08:28:00 12/09/2012 23:59:59 CLS Outpatient LUPE RUBY FACC, RAKESH PADILLA CCDS [facility] CARD HYPERLIPIDEMIA,MILD AORTIC STENOSIS [id number] 04/23/2017 12:58:00 Document Registration [id number] 04/23/2017 12:43:00 Document Registration [id number] 09/16/2013 00:00:00 Document Registration [id number] 06/15/2012 12:39:00 Document Registration [id number] 11/11/2011 12:17:00 Document Registration [id number] 10/19/2011 14:45:00 Document Registration
[2017-04-24] MEDS ORDERED: PIPERACILLIN SODIUM/TAZOBACTAM 4.5 GM in D5W 100 ML IVPB 100 ML IV ONE (21:45)
--- NOTE | 2017-04-24 21:47 | ED Cough/URI ---
General Chief Complaint: Respiratory Problems Stated Complaint: SOA Source: patient Exam Limitations: no limitations History of Present Illness Date Seen by Provider: Apr 24, 2017 Time Seen by Provider: 21:44 Initial Comments to ER per EMS from home after EMS was called by the for shortness of breath , paleness and seemingly confused. Reportedly has been treated for pneumonia for the past 3 weeks with Keflex, a different antibiotic, then back to Keflex. He was initially treated by his primary care provider Elsa balderas. He did have a procedure to the left foot for wound debridement by Dr. Fontana yesterday. EMS arrived on scene and found oxygen saturation to be 74% on room air. He does not typically wear oxygen. Severity/Quality: moderate Associated Symptoms: cough, shortness of breath Allergies and Home Medications Allergies Coded Allergies: No Known Drug Allergies (Unverified Allergy, Mild, 02/24/09) Home Medications Acetaminophen 325 Mg Tablet, 325 MG PO PRN, (Reported) Clopidogrel Bisulfate 75 Mg Tablet, 75 MG PO DAILY, #90 Ref 3 Prescribed by: EVAN LAMAR on 01/20/17 0849 Simvastatin 40 Mg Tablet, 40 MG PO HS, (Reported) Sitagliptin Phosphate 100 Mg Tablet, 100 MG DAILY, (Reported) Warfarin Sod 10 Mg Tab, 10 MG PO TUES AND THURS, (Reported) 10MG TUES AND THURS Warfarin Sod 5 Mg Tab, 7.5 MG PO M,W,F,SA,HUGGINS, (Reported) MON, WED, FRI, SAT, SUN Constitutional: see HPI EENTM: see HPI Respiratory: see HPI, cough Cardiovascular: no symptoms reported Genitourinary: no symptoms reported Musculoskeletal: no symptoms reported Psychiatric/Neurological: No Symptoms Reported Hematologic/Lymphatic: No Symptoms Reported Immunological/Allergic: no symptoms reported Past Vyoguwg-Cmrryr-Nnpogy Hx Immunizations Up To Date Date of Pneumonia Vaccine: Dec 20, 2009 Date of Influenza Vaccine: Mar 22, 2011 Reproductive System Hx Reproductive Disorders: No Cancer Cancer: Colon Physical Exam Vital Signs Vital Sign - Last 12Hours 04/24/17 21:29 Temp 98.3 Pulse 102 Resp 20 B/P (MAP) 118/60 (79) Pulse Ox 93 O2 Delivery Nasal Cannula O2 Flow Rate 4.00 Capillary Refill : General Appearance: WD/WN, no apparent distress Eyes: Bilateral Eye Normal Inspection, Bilateral Eye PERRL, Bilateral Eye EOMI HEENT: PERRL/EOMI, normal ENT inspection Neck: non-tender, full range of motion Respiratory: no respiratory distress, no accessory muscle use, other (crackles bilateral bases, 94% on 4 L. Blood pressure is fine at 169/102, heart rate 99.) Gastrointestinal: normal bowel sounds, non tender Neurologic/Psychiatric: alert, normal mood/affect, oriented x 3 Skin: normal color, warm/dry Focused Exam Evaluation Lactate Level Laboratory Tests 04/24/17 21:37: Lactic Acid Level 2.93*H Lactic Acid Level Laboratory Tests Test 04/24/17 21:37 Lactic Acid Level 2.93 MMOL/L (0.50-2.00) *H Progress/Results/Core Measures Suspected Sepsis SIRS Temperature: Pulse: Respiratory Rate: Laboratory Tests 04/24/17 21:37: White Blood Count 27.1H Blood Pressure / Mean: Laboratory Tests 04/24/17 21:37: Lactic Acid Level 2.93*H Laboratory Tests 04/24/17 21:37: Creatinine 0.99, INR Comment 4.8H, Platelet Count 252, Total Bilirubin 0.9 Results/Orders Lab Results Laboratory Tests Test 04/24/17 21:37 Range/Units White Blood Count 27.1 H 4.3-11.0 10^3/uL Red Blood Count 4.12 L 4.35-5.85 10^6/uL Hemoglobin 11.3 L 13.3-17.7 G/DL Hematocrit 33 L 40-54 % Mean Corpuscular Volume 79 L 80-99 FL Mean Corpuscular Hemoglobin 27 25-34 PG Mean Corpuscular Hemoglobin Concent 35 32-36 G/DL Red Cell Distribution Width 14.0 10.0-14.5 % Platelet Count 252 130-400 10^3/uL Mean Platelet Volume 10.4 7.4-10.4 FL Neutrophils (%) (Auto) 78 H 42-75 % Lymphocytes (%) (Auto) 5 L 12-44 % Monocytes (%) (Auto) 17 H 0-12 % Eosinophils (%) (Auto) 0 0-10 % Basophils (%) (Auto) 0 0-10 % Neutrophils # (Auto) 21.0 H 1.8-7.8 X 10^3 Lymphocytes # (Auto) 1.3 1.0-4.0 X 10^3 Monocytes # (Auto) 4.7 H 0.0-1.0 X 10^3 Eosinophils # (Auto) 0.1 0.0-0.3 10^3/uL Basophils # (Auto) 0.1 0.0-0.1 10^3/uL Neutrophils % (Manual) 82 % Lymphocytes % (Manual) 5 % Monocytes % (Manual) 9 % Eosinophils % (Manual) 0 % Basophils % (Manual) 1 % Band Neutrophils 2 % Reactive Lymphocytes 1 % Toxic Granulation 2+ Poikilocytosis SLIGHT Anisocytosis MODERATE Stomatocytes SLIGHT Elliptocytes SLIGHT Rouleau SLIGHT Prothrombin Time 44.4 H 12.2-14.7 SEC INR Comment 4.8 H 0.8-1.4 Sodium Level 125 *L 135-145 MMOL/L Potassium Level 4.7 3.6-5.0 MMOL/L Chloride Level 96 L 98-107 MMOL/L Carbon Dioxide Level 15 L 21-32 MMOL/L Anion Gap 14 5-14 MMOL/L Blood Urea Nitrogen 14 7-18 MG/DL Creatinine 0.99 0.60-1.30 MG/DL Estimat Glomerular Filtration Rate > 60 BUN/Creatinine Ratio 14 Glucose Level 237 H 70-105 MG/DL Lactic Acid Level 2.93 *H 0.50-2.00 MMOL/L Calcium Level 8.6 8.5-10.1 MG/DL Magnesium Level 1.6 L 1.8-2.4 MG/DL Total Bilirubin 0.9 0.1-1.0 MG/DL Aspartate Amino Transf (AST/SGOT) 29 5-34 U/L Alanine Aminotransferase (ALT/SGPT) 20 0-55 U/L Alkaline Phosphatase 78 40-136 U/L B-Type Natriuretic Peptide 1213.9 H <100.0 PG/ML Total Protein 6.9 6.4-8.2 GM/DL Albumin 3.2 3.2-4.5 GM/DL My Orders Orders - AUBREY RAGSDALE [employer] SAL[employer] REPRESENTATIVE Cbc With Automated Diff (04/24/17 21:40) Comprehensive Metabolic Panel (04/24/17 21:40) Blood Culture (04/24/17 21:40) BNP (04/24/17 21:40) Magnesium (04/24/17 21:40) Ekg Tracing (04/24/17 21:40) Chest 1 View, Ap/Pa Only (04/24/17 21:40) Lactic Acid Analyzer (04/24/17 21:40) Piperacillin Sodium/Tazobactam (Zosyn Vi (04/24/17 21:45) Manual Differential (04/24/17 21:37) Protime With Inr (04/24/17 22:12) Bipap Rt-Rfs (04/24/17 22:13) Arterial Blood Gas (04/24/17 22:53) Medications Given in ED Current Medications Medications Dose Ordered Sig/Dragan Route Start Time Stop Time Status Last Admin Dose Admin Piperacillin Sod/ Tazobactam Sod 4.5 gm/Dextrose 100 ml @ 200 mls/hr ONCE ONCE IV 04/24/17 21:45 04/24/17 22:14 DC 04/24/17 22:33 200 MLS/HR Vital Signs/I&O Vital Sign - Last 12Hours 04/24/17 04/24/17 21:29 22:27 Temp 98.3 Pulse 102 94 Resp 20 33 B/P (MAP) 118/60 (79) Pulse Ox 93 98 O2 Delivery Nasal Cannula O2 Flow Rate 4.00 45.00 Capillary Refill : Departure Communication (Admissions) Progress Notes [id number]- patient was tachypneic, Rales bilaterally, sats were 92% on 4 L. BiPAP was started. Symptomatic improvement. I did discuss the congestive heart failure and sepsis and severe pneumonia with the patient and his . He has a DO NOT RESUSCITATE and they both confirmed this. I advised them both that I do not expect him to survive this illness and he will likely pass in the next few days patient replies "that's fine, call the undertaker". Advised them that if we treat for the sepsis with aggressive fluids we will worsen his congestive heart failure, if we do not give fluids, we may develop a worsening lactic acidemia. Chest x-ray shows a picture of pulmonary edema with right upper and middle lobe infiltrate Impression Impression: Primary Impression: CHF exacerbation Additional Impressions: Pulmonary edema Sepsis Pneumonia Disposition: ADMITTED INPATIENT Condition: Stable Admissions Decision to Admit Reason: Admit from ER (General) Decision to Admit/Date: Apr 24, 2017 Time/Decision to Admit Time: 22:56 Departure-Patient Inst. Referrals: SELF,ELIZABETH RUBY (PCP/Family) Primary Care Physician AUBREY RAGDSALE APRN Apr 24, 2017 21:47
[2017-04-24 21:48] LABS: BASOPHILS # (AUTO) 0.1 10^3/uL (0.0-0.1); BASOPHILS % (AUTO) 0 % (0-10); EOSINOPHILS # (AUTO) 0.1 10^3/uL (0.0-0.3); EOSINOPHILS % (AUTO) 0 % (0-10); HEMATOCRIT 33 % (40-54); HEMOGLOBIN 11.3 G/DL (13.3-17.7); LYMPHOCYTES # (AUTO) 1.3 X 10^3 (1.0-4.0); LYMPHOCYTES % (AUTO) 5 % (12-44); MEAN CORPUSCULAR HEMOGLOBIN 27 PG (25-34); MEAN CORPUSCULAR HGB CONC 35 G/DL (32-36); MEAN CORPUSCULAR VOLUME 79 FL (80-99); MEAN PLATELET VOLUME 10.4 FL (7.4-10.4); MONOCYTES # (AUTO) 4.7 X 10^3 (0.0-1.0); MONOCYTES % (AUTO) 17 % (0-12); NEUTROPHILS % (AUTO) 78 % (42-75); PLATELET COUNT 252 10^3/uL (130-400); RED BLOOD COUNT 4.12 10^6/uL (4.35-5.85); WHITE BLOOD COUNT 27.1 10^3/uL (4.3-11.0)
[2017-04-24 22:02] LABS: BAND NEUTROPHILS 2 %; BASOPHILS % (MANUAL) 1 %; EOSINOPHILS % (MANUAL) 0 %; LYMPHOCYTES % (MANUAL) 5 %; MONOCYTES % (MANUAL) 9 %; NEUTROPHILS % (MANUAL) 82 %; REACTIVE LYMPHOCYTES 1 %
[2017-04-24 22:03] LABS: ANISOCYTOSIS MODERATE; ELLIPT/OVALOCYTES SLIGHT; POIKILOCYTOSIS SLIGHT; STOMATOCYTES SLIGHT; TOXIC GRANULATION/VACUOLAZATIO 2+
[2017-04-24 22:04] LABS: ROULEAUX SLIGHT
[2017-04-24 22:20] LABS: ALANINE AMINOTRANSFERASE 20 U/L (0-55); ALBUMIN 3.2 GM/DL (3.2-4.5); ALKALINE PHOSPHATASE 78 U/L (40-136); BILIRUBIN,TOTAL 0.9 MG/DL (0.1-1.0); BUN/CREATININE RATIO 14; CALCIUM 8.6 MG/DL (8.5-10.1); CARBON DIOXIDE 15 MMOL/L (21-32); CHLORIDE 96 MMOL/L (98-107); CREATININE SERUM 0.99 MG/DL (0.60-1.30); GFR ESTIMATED > 60; GLUCOSE 237 MG/DL (70-105); MAGNESIUM 1.6 MG/DL (1.8-2.4); POTASSIUM 4.7 MMOL/L (3.6-5.0); TOTAL PROTEIN 6.9 GM/DL (6.4-8.2)
[2017-04-24 22:22] LABS: INR 4.8 (0.8-1.4); PROTHROMBIN TIME PATIENT 44.4 SEC (12.2-14.7)
[2017-04-24 22:25] LABS: SODIUM 125 MMOL/L (135-145)
[2017-04-24 22:27] VITALS: BP 118/68
[2017-04-24 23:07] LABS: ABG OXYGEN SATURATION 69 % (94-100); ABG PCO2 28 MMHG (35-45); ABG PH 7.43 (7.37-7.43); ABG PO2 43 MMHG (79-93); ABG TCO2 19.4 MMOL/L (21.0-31.0)
[2017-04-24 23:08] LABS: ALLENS TEST YES-POS; INSPIRED O2 BIPAP; PATIENT TEMP 98.3; VENTILATOR NO
[2017-04-24] MEDS ORDERED: NS IV 1000 ML 1,000 ML IV SCH (23:15)
--- OUTSIDE RECORDS SUMMARY | 2017-04-24 23:23 | XMS REPORT | Continuity of Care Document ---
Author Author [facility] Organization [facility] Address Unknown Phone Unavailable Allergies Active Description Code Type Severity Reaction Onset Reported/Identified Relationship to Patient Clinical Status Yes No Known Drug Allergies [id number] Drug Allergy Mild N/A 02/24/2009 Medications There is no data. Problems Date Dx Coded Attending Type Code Diagnosis Diagnosed By 10/20/2011 Ot 272.4 HYPERLIPIDEMIA NEC/NOS 10/20/2011 Ot 285.9 ANEMIA NOS 10/20/2011 Ot 414.01 CORONARY ATHEROSCLEROSIS OF [place] CORON 10/20/2011 Ot 427.31 ATRIAL FIBRILLATION 10/20/2011 Ot 427.32 ATRIAL FLUTTER 10/20/2011 Ot V12.59 HX- CIRCULATORY SYST DIS,NEC 10/20/2011 Ot V58.61 ANTICOAGULANTS,LT,CURRENT USE 10/20/2011 Ot V58.69 OTH MED,LT, CURRENT USE 01/19/2012 Ot 272.4 HYPERLIPIDEMIA NEC/NOS 01/19/2012 Ot 285.9 ANEMIA NOS 01/19/2012 Ot 414.01 CORONARY ATHEROSCLEROSIS OF [place] CORON 01/19/2012 Ot 427.31 ATRIAL FIBRILLATION 01/19/2012 Ot 427.32 ATRIAL FLUTTER 01/19/2012 Ot V12.59 HX- CIRCULATORY SYST DIS,NEC 01/19/2012 Ot V58.61 ANTICOAGULANTS,LT,CURRENT USE 01/19/2012 Ot V58.69 OTH MED,LT, CURRENT USE 08/03/2012 Ot 427.31 ATRIAL FIBRILLATION 08/03/2012 Ot V58.61 ANTICOAGULANTS,LT,CURRENT USE 01/10/2013 BAIMA, EVAN L [employer] Ot 427.31 ATRIAL FIBRILLATION 01/10/2013 BAIMA, EVAN L [employer] Ot V58.61 ANTICOAGULANTS,LT,CURRENT USE 04/12/2013 BAIMA, EVAN L [employer] Ot 427.31 ATRIAL FIBRILLATION 04/12/2013 BAIMA, EVAN L [employer] Ot V58.61 ANTICOAGULANTS,LT,CURRENT USE 09/15/2013 BAIMA, EVAN L [employer] Ot 427.31 ATRIAL FIBRILLATION 09/15/2013 EVAN LAMAR [employer] Ot V58.61 ANTICOAGULANTS,LT,CURRENT USE 01/16/2017 LUPE RUBY FACC, ALI FACP CCDS Ot I25.10 ATHSCL HEART DISEASE OF [place] CORONARY 01/17/2017 LUEP RUBY FACC, ALI FACP CCDS Ot I25.10 ATHSCL HEART DISEASE OF [place] CORONARY 01/19/2017 LUPE RUBY FACC, ALI FACP CCDS Ot I25.10 ATHSCL HEART DISEASE OF [place] CORONARY 01/19/2017 LUPE RUBY FACC, ALI FACP CCDS Ot I35.0 NONRHEUMATIC AORTIC (VALVE) STENOSIS 01/19/2017 LUPE RUBY FACC, ALI FACP CCDS Ot I44.2 ATRIOVENTRICULAR BLOCK, COMPLETE 01/19/2017 LUPE RUBY FACC, ALI FACP CCDS Ot I65.23 OCCLUSION AND STENOSIS OF BILATERAL HOOD 01/19/2017 LUPE RUBY FACC, ALI FACP CCDS Ot 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 W INTRMT 01/19/2017 LUPE [...] CCDS Ot I25.10 ATHSCL HEART DISEASE OF [place] CORONARY 01/20/2017 LUPE RUBY FACC, RAKESH FACP CCDS Ot I35.0 NONRHEUMATIC AORTIC (VALVE) STENOSIS 01/20/2017 LUPE RUBY FACC, ALI FACP CCDS Ot I69.354 HEMIPLGA FOLLOWING CEREBRAL INFRC AFFECT 01/20/2017 LUPE RUBY FACC, RAKESH FACP CCDS Ot 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 01/20/2017 LUPE RUBY FACC, RAKESH FACP CCDS Ot 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 01/20/2017 LUPE RUBY FACC, RAKESH FACP CCDS Ot Z79.01 FOUR H AGENT (CURRENT) USE OF ANTICOAGULANT 01/20/2017 LUPE RUBY FACC, ALI FACP CCDS Ot Z79.84 HALF-WAY (CURRENT) USE OF ORAL HYPOGLYC 01/20/2017 LUPE RUBY FACC, RAKESH FACP CCDS Ot Z91.14 PATIENT'S OTHER NONCOMPLIANCE WITH MEDIC 01/20/2017 LUPE RUBY FACC, RAKESH FACP CCDS Ot Z95.0 PRESENCE OF CARDIAC PACEMAKER 01/27/2017 EVAN LAMAR [employer] Ot I63.9 CEREBRAL INFARCTION, UNSPECIFIED 02/04/2017 LUPE [...] CCDS Ot I25.10 ATHSCL HEART DISEASE OF [place] CORONARY 02/04/2017 LUPE RUBY FACC, RAKESH FACP CCDS Ot I35.0 NONRHEUMATIC AORTIC (VALVE) STENOSIS 02/04/2017 LUEP RUBY FACC, ALI FACP CCDS Ot I69.354 HEMIPLGA FOLLOWING CEREBRAL INFRC AFFECT 02/04/2017 LUPE RUBY FACC, ALI FACP CCDS Ot 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 02/04/2017 LUPE RUBY FACC, ALI FACP CCDS Ot 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 02/04/2017 LUPE RUBY FACC, ALI FACP CCDS Ot Z79.01 HALF-WAY (CURRENT) USE OF ANTICOAGULANT 02/04/2017 RAKESH ANDRADE MD, FACC FACP CCDS Ot Z79.84 FOUR H AGENT (CURRENT) USE OF ORAL HYPOGLYC 02/04/2017 LUPE [...] CCDS Ot I25.10 ATHSCL HEART DISEASE OF [place] CORONARY 02/08/2017 LUPE RUBY FACC, RAKESH FACP CCDS Ot I35.0 NONRHEUMATIC AORTIC (VALVE) STENOSIS 02/08/2017 LUPE RUBY FACC, RAKESH FACP CCDS Ot I69.354 HEMIPLGA FOLLOWING CEREBRAL INFRC AFFECT 02/08/2017 LUPE RUBY FACC, RAKESH FACP CCDS Ot 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 02/08/2017 LUPE RUBY FACC, RAKESH FACP CCDS Ot 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 02/08/2017 RAKESH ANDRADE MD, FACC FACP CCDS Ot Z79.01 FOUR H AGENT (CURRENT) USE OF ANTICOAGULANT 02/08/2017 LUPE RUBY FACC, RAKESH FACP CCDS Ot Z79.84 HALF-WAY (CURRENT) USE OF ORAL HYPOGLYC 02/08/2017 LUPE RUBY FACC, RAKESH FACP CCDS Ot Z91.14 PATIENT'S OTHER NONCOMPLIANCE WITH MEDIC 02/08/2017 LUPE MD FACC, ALI FACP CCDS Ot Z95.0 PRESENCE OF CARDIAC PACEMAKER 02/08/2017 LUPE RUBY FACC, ALI FACP CCDS Ot I25.10 ATHSCL HEART DISEASE OF [place] CORONARY 02/08/2017 LUPE RUBY FACC, ALI FACP CCDS Ot I35.0 NONRHEUMATIC AORTIC (VALVE) STENOSIS 02/08/2017 LUPE RUBY FACC, ALI FACP CCDS Ot I44.2 ATRIOVENTRICULAR BLOCK, COMPLETE 02/08/2017 LUPE RUBY FACC, ALI FACP CCDS Ot I65.23 OCCLUSION AND STENOSIS OF BILATERAL HOOD 02/08/2017 LUPE RUBY FACC, ALI FACP CCDS Ot 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 W INTRMT 02/08/2017 LUPE RUBY FACC, ALI FACP CCDS Ot Z72.0 TOBACCO USE 02/08/2017 LUPE RUBY FACC, ALI FACP CCDS Ot Z95.0 PRESENCE OF CARDIAC PACEMAKER 02/15/2017 LUPE RUBY FACC, ALI FACP CCDS Ot I25.10 ATHSCL HEART DISEASE OF [place] CORONARY 02/15/2017 LUPE RUBY FACC, ALI FACP CCDS Ot I44.2 ATRIOVENTRICULAR BLOCK, COMPLETE 02/15/2017 LUPE RUBY FACC, ALI FACP CCDS Ot I65.23 OCCLUSION AND STENOSIS OF BILATERAL HOOD 02/15/2017 LUPE RUBY FACC, ALI FACP CCDS Ot 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 W INTRMT 02/15/2017 LUPE RUBY FACC, ALI FACP CCDS Ot Z72.0 TOBACCO USE 02/15/2017 LUPE RUBY FACC, ALI FACP CCDS Ot Z95.0 PRESENCE OF CARDIAC PACEMAKER 02/15/2017 EVAN LAMAR [employer] Ot I63.9 CEREBRAL INFARCTION, UNSPECIFIED 02/15/2017 LUPE RUBY FACC, ALI FACP CCDS Ot I25.10 ATHSCL HEART DISEASE OF [place] CORONARY 02/15/2017 LUPE RUBY FACC, ALI FACP CCDS Ot I35.0 NONRHEUMATIC AORTIC (VALVE) STENOSIS 02/15/2017 LUPE RUBY FACC, ALI FACP CCDS Ot I44.2 ATRIOVENTRICULAR BLOCK, COMPLETE 02/15/2017 LUPE RUBY FACC, ALI FACP CCDS Ot I65.23 OCCLUSION AND STENOSIS OF BILATERAL HOOD 02/15/2017 LUPE RUBY FACC, ALI FACP CCDS Ot 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 W INTRMT 02/15/2017 LUPE RUBY FACC, ALI FACP CCDS Ot Z72.0 TOBACCO USE 02/15/2017 LUPE RUBY FACC, ALI FACP CCDS Ot Z95.0 PRESENCE OF CARDIAC PACEMAKER 02/16/2017 LUPE RUBY FACC, ALI FACP CCDS Ot I25.10 ATHSCL HEART DISEASE OF [place] CORONARY 02/16/2017 LUPE RUBY FACC, ALI FACP CCDS Ot I44.2 ATRIOVENTRICULAR BLOCK, COMPLETE 02/16/2017 LUPE RUBY FACC, ALI FACP CCDS Ot I65.23 OCCLUSION AND STENOSIS OF BILATERAL HOOD 02/16/2017 LUPE RUBY FACC, ALI FACP CCDS Ot 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 W INTRMT 02/16/2017 LUPE RUBY FACC, ALI FACP CCDS Ot Z72.0 TOBACCO USE 02/16/2017 LUPE RUBY FACC, ALI FACP CCDS Ot Z95.0 PRESENCE OF CARDIAC PACEMAKER 02/16/2017 EVAN LAMAR [employer] Ot I63.9 CEREBRAL INFARCTION, UNSPECIFIED 04/05/2017 LUPE RUBY FACDeyvi, ALI FACP CCDS Ot 424.1 AORTIC VALVE DISORDER 04/05/2017 LUPE RUBY FACC, ALI FACP CCDS Ot V58.69 OTH MED,LT,CURRENT USE 04/05/2017 LUPE SUTHERLANDC, ALI FACP CCDS Ot V58.83 ENCOUNTER FOR THERAPEUTIC DRUG MONITORIN 04/05/2017 EVAN LAMAR [employer] Ot 272.4 HYPERLIPIDEMIA NEC/NOS 04/05/2017 EVAN LAMAR [employer] Ot 401.9 HYPERTENSION NOS 04/05/2017 Ot 427.31 ATRIAL FIBRILLATION 04/05/2017 Ot V58.61 ANTICOAGULANTS,LT,CURRENT USE 04/05/2017 LUPE RUBY FACDeyvi, ALI FACP CCDS Ot I25.10 ATHSCL HEART DISEASE OF [place] CORONARY 04/05/2017 LUPE RUBY FACC, ALI FACP CCDS Ot I44.2 ATRIOVENTRICULAR BLOCK, COMPLETE 04/05/2017 LUPE RUBY FACC, ALI FACP CCDS Ot I65.23 OCCLUSION AND STENOSIS OF BILATERAL HOOD 04/05/2017 LUPE RUBY FACC, ALI FACP CCDS Ot 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 W INTRMT 04/05/2017 LUPE RUBY FACC, ALI FACP CCDS Ot Z72.0 TOBACCO USE 04/05/2017 LUPE RUBY FACC, ALI FACP CCDS Ot Z95.0 PRESENCE OF CARDIAC PACEMAKER 04/05/2017 LUPE RUBY FACC, ALI FACP CCDS Ot I25.10 ATHSCL HEART DISEASE OF [place] CORONARY 04/05/2017 LUPE RUBY FACC, ALI FACP CCDS Ot I35.0 NONRHEUMATIC AORTIC (VALVE) STENOSIS 04/05/2017 LUPE RUBY FACC, ALI FACP CCDS Ot I44.2 ATRIOVENTRICULAR BLOCK, COMPLETE 04/05/2017 LUPE RUBY FACC, ALI FACP CCDS Ot I65.23 OCCLUSION AND STENOSIS OF BILATERAL HOOD 04/05/2017 LUPE RUBY FACC, ALI FACP CCDS Ot 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 W [facility] 04/05/2017 LUPE SUTHERLANDC, ALI FACP CCDS Ot Z72.0 TOBACCO USE 04/05/2017 LUPE RUBY FACC, ALI FACP CCDS Ot Z95.0 PRESENCE OF CARDIAC PACEMAKER 04/05/2017 EVAN LAMAR [employer] Ot I63.9 CEREBRAL INFARCTION, UNSPECIFIED 04/08/2017 MIHAELA CHEEMA MD, Ot E11.42 TYPE 2 DIABETES MELLITUS WITH DIABETIC P 04/08/2017 MIHAELA CHEEMA MD, Ot E11.621 TYPE 2 DIABETES MELLITUS WITH FOOT ULCER 04/08/2017 MIHAELA CHEEMA MD, Ot 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 [facility] 04/08/2017 MIHAELA CHEEMA MD, Ot L03.116 CELLULITIS OF LEFT LOWER LIMB 04/08/2017 MIHAELA CHEEMA MD, Ot L97.523 NON-PRS CHRONIC ULCER OTH PRT LEFT FOOT 04/12/2017 MIHAELA CHEEMA MD, Ot E11.42 TYPE 2 DIABETES MELLITUS WITH DIABETIC P 04/12/2017 MIHAELA CHEEMA MD, Ot E11.621 TYPE 2 DIABETES MELLITUS WITH FOOT ULCER 04/12/2017 MIHAELA CHEEMA MD Ot 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 [facility] 04/12/2017 MIHAELA CHEEMA MD, Ot L03.116 CELLULITIS OF LEFT LOWER LIMB 04/12/2017 MIHAELA CHEEMA MD, Ot L97.523 NON-PRS CHRONIC ULCER OTH PRT LEFT FOOT 04/12/2017 MIHAELA CHEEMA MD, Ot E11.42 TYPE 2 DIABETES MELLITUS WITH DIABETIC P 04/12/2017 MIHAELA CHEEMA MD, Ot E11.621 TYPE 2 DIABETES MELLITUS WITH FOOT ULCER 04/12/2017 MIHAELA CHEEMA MD, Ot 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 ULC 04/12/2017 MIHAELA CHEEMA MD, Ot L03.116 CELLULITIS OF LEFT LOWER LIMB 04/12/2017 MIHAELA CHEEMA MD, Ot L97.523 NON-PRS CHRONIC ULCER OTH PRT LEFT FOOT 04/19/2017 MIHAELA CHEEMA MD, Ot E11.42 TYPE 2 DIABETES MELLITUS WITH DIABETIC P 04/19/2017 MIHAELA CHEEMA MD, Ot E11.621 TYPE 2 DIABETES MELLITUS WITH FOOT ULCER 04/19/2017 MIHAELA CHEEMA MD, Ot 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 C 04/19/2017 [...] Bacteria identification in isolate by anaerobe culture [id number] NRG Gram stain microscopy - 04/07/17 15:25 GRAM STAIN RESULT FEW GRAM POSITIVE COCCI NRG Bacteria identification in wound by culture - 04/07/17 15:25 Bacteria identification in wound by culture [id number] NRG FREE TEXT EXTERNAL SENSITIVITY REPORTED AT 0904-09-17 NRG QUANTITY OF GROWTH Moderate Growth NRG MRSA AGAR MRSA isolated (Screening test for MRSA is positive) NRG CALL POSITIVES (F1 HELP) CALLED TO WOUND CARE 04/08/17 9:30 BY Mario ROLON [facility] Bacterial susceptibility panel - 04/07/17 15:25 Gentamicin [...] or blood by coagulation assay 8.7 0.8-1.4 Complete blood count (CBC) with automated white blood cell (WBC) differential - 04/24/17 21:37 Blood leukocytes automated count (number/volume) 27.1 10*3/uL 4.3-11.0 Blood erythrocytes automated count (number/volume) 4.12 10*6/uL 4.35-5.85 Venous blood hemoglobin measurement (mass/volume) 11.3 g/dL 13.3-17.7 Blood hematocrit (volume fraction) 33 % 40-54 Automated erythrocyte mean corpuscular volume 79 [foz_us] 80-99 Automated erythrocyte mean corpuscular hemoglobin (mass per erythrocyte) 27 pg 25-34 Automated erythrocyte mean corpuscular hemoglobin concentration measurement ( mass/volume) 35 g/dL 32-36 Automated erythrocyte distribution width ratio 14.0 % 10.0-14.5 Automated blood platelet count (count/volume) 252 10*3/uL 130-400 Automated blood platelet mean volume measurement 10.4 [foz_us] 7.4-10.4 Automated blood neutrophils/100 leukocytes 78 % 42-75 Automated blood lymphocytes/100 leukocytes 5 % 12-44 Blood monocytes/100 leukocytes 17 % 0-12 Automated blood eosinophils/100 leukocytes 0 % 0-10 Automated blood basophils/100 leukocytes 0 % 0-10 Blood neutrophils automated count (number/volume) 21.0 10*3 1.8-7.8 Blood lymphocytes automated count (number/volume) 1.3 10*3 1.0-4.0 Blood monocytes automated count (number/volume) 4.7 10*3 0.0-1.0 Automated eosinophil count 0.1 10*3/uL 0.0-0.3 Automated blood basophil count (count/volume) 0.1 10*3/uL 0.0-0.1 Blood manual differential performed detection - 04/24/17 21:37 Blood monocytes/100 leukocytes 9 % NRG Manual blood segmented neutrophils/100 leukocytes 82 % NRG Blood band neutrophils/100 leukocytes 2 % NRG Manual blood lymphocytes/100 leukocytes 5 % NRG Manual eosinophils/100 leukocytes in nose 0 % NRG Manual blood basophils/100 leukocytes 1 % NRG Blood lymphocytes variant/100 leukocytes 1 % NRG Blood anisocytosis detection by light microscopy MODERATE NRG Blood ovalocytes detection by light microscopy SLIGHT NRG Blood toxic granules detection by light microscopy 2+ NRG Blood poikilocytosis detection by light microscopy SLIGHT NRG Blood rouleaux detection by light microscopy SLIGHT NRG Blood stomatocytes detection by light microscopy SLIGHT NRG Comprehensive metabolic panel - 04/24/17 21:37 Serum or plasma sodium measurement (moles/volume) 125 mmol/L 135-145 Serum or plasma potassium measurement (moles/volume) 4.7 mmol/L 3.6-5.0 Serum or plasma chloride measurement (moles/volume) 96 mmol/L 98-107 Carbon dioxide 15 mmol/L 21-32 Serum or plasma anion gap determination (moles/volume) 14 mmol/L 5-14 Serum or plasma urea nitrogen measurement (mass/volume) 14 mg/dL 7-18 Serum or plasma creatinine measurement (mass/volume) 0.99 mg/dL 0.60-1.30 Serum or plasma urea nitrogen/creatinine mass ratio 14 NRG Serum or plasma creatinine measurement with calculation of estimated glomerular filtration rate > NRG Serum or plasma glucose measurement (mass/volume) 237 mg/dL 70-105 Serum or plasma calcium measurement (mass/volume) 8.6 mg/dL 8.5-10.1 Serum or plasma total bilirubin measurement (mass/volume) 0.9 mg/dL 0.1-1.0 Serum or plasma alkaline phosphatase measurement (enzymatic activity/volume) 78 U/L 40-136 Serum or plasma aspartate aminotransferase measurement (enzymatic activity/ volume) 29 U/L 5-34 Serum or plasma alanine aminotransferase measurement (enzymatic activity/volume ) 20 U/L 0-55 Serum or plasma protein measurement (mass/volume) 6.9 g/dL 6.4-8.2 Serum or plasma albumin measurement (mass/volume) 3.2 g/dL 3.2-4.5 Magnesium - 04/24/17 21:37 Magnesium 1.6 mg/dL 1.8-2.4 PT panel in platelet poor plasma by coagulation assay - 04/24/17 21:37 Prothrombin time (PT) in platelet poor plasma by coagulation assay 44.4 s 12.2-14.7 INR in platelet poor plasma or blood by coagulation assay 4.8 0.8-1.4 Blood lactic acid measurement (moles/volume) - 04/24/17 21:37 Blood lactic acid measurement (moles/volume) 2.93 mmol/L 0.50-2.00 Serum or plasma lithium measurement (moles/volume) - 04/24/17 21:37 BNP level 1213.9 pg/mL <100.0 Arterial blood gas measurement - 04/24/17 23:01 Blood pCO2 28 mm[Hg] 35-45 Blood pO2 43 mm[Hg] 79-93 Arterial blood bicarbonate measurement (moles/volume) 19 mmol/L 23-27 Arterial blood base excess by calculation -5.0 mmol/L - 2.5-2.5 Arterial blood oxygen saturation measurement 69 % 94-100 * Inhaled oxygen flow rate BIPAP NRG Arterial blood pH measurement with patient temperature correction 7.43 7.37-7.43 Arterial blood carbon dioxide, total measurement (moles/volume) 19.4 mmol/L 21.0-31.0 Body site R RAD NRG Assessment of wrist artery patency prior to arterial puncture YES- POS NRG Setting of ventilation mode NO NRG Measurement of body temperature 98.3 NRG Encounters ACCT No. Visit Date/Time Discharge Status Pt. Type Provider Facility Loc./Unit Complaint [id number] 04/16/2017 11:17:00 04/16/2017 23:59:59 CLS Outpatient MIHAELA CHEEMA MD [facility] [id number] 04/09/2017 12:33:00 04/09/2017 23:59:59 CLS Outpatient MIHAELA CHEEMA MD [facility] RAD E11.621 [id number] 04/09/2017 11:08:00 04/09/2017 23:59:59 CLS Outpatient MIHAELA CHEEMA MD [facility] [id number] 04/07/2017 14:15:00 04/07/2017 23:59:59 CLS Outpatient MIHAELA CHEEMA MD [facility] [id number] 04/06/2017 15:23:00 04/06/2017 23:59:59 CLS Outpatient BAIMA, EVAN L [employer] [facility] RAD I70.213 PAD [id number] 01/25/2017 09:30:00 01/25/2017 23:59:59 CLS Preadmit LUPE RUBY FACC, ALI FACP CCDS [facility] CARD PAD,CAD [id number] 01/21/2017 09:22:00 01/21/2017 23:59:59 CLS Outpatient BAILESVIA, EVAN L [employer] [facility] LAB I63.9 [id number] 01/21/2017 07:20:00 01/21/2017 23:59:59 CLS Outpatient LUPE RUBY FACC, ALI FACP CCDS [facility] CARD CAD [id number] 01/19/2017 06:53:00 01/20/2017 10:38:00 DIS Outpatient LUPE RUBY FACC, ALI FACP CCDS [facility] CATH PAD,CAD,DM [id number] 01/16/2017 10:31:00 01/16/2017 23:59:59 CLS Outpatient LUPE RUBY FACC, ALI FACP CCDS [facility] LAB CAD, CARDIAC PACEMAKER, CAROTID ARTERIAL DISEASE [id number] 06/17/2013 10:03:00 09/15/2013 00:01:00 DIS Outpatient BAILESVIA, EVAN L [employer] [facility] LAB COUMADIN TX,CVA,A- FLUTTER,AFIB [id number] 06/17/2013 10:05:00 06/17/2013 23:59:59 CLS Outpatient BAIMA, EVAN L [employer] [facility] LAB HYPERTENSION, HYPERLIPIDEMIA, STATIN [place] [id number] 03/09/2013 15:03:00 04/12/2013 00:01:00 DIS Outpatient BAILESVIA, EVAN L [employer] [facility] LAB COUMADIN TX,CVA,A- FLUTTER,AFIB [id number] 11/23/2012 16:15:00 01/10/2013 00:01:00 DIS Outpatient BAIMA, EVAN L [employer] [facility] LAB COUMADIN TX,CVA,A- FLUTTER,AFIB [id number] 12/09/2012 08:28:00 12/09/2012 23:59:59 CLS Outpatient LUPE RUBY FACC, RAKESH PADILLA CCDS [facility] CARD HYPERLIPIDEMIA,MILD AORTIC STENOSIS [id number] 04/24/2017 22:01:00 Document Registration [id number] 04/23/2017 12:58:00 Document Registration [id number] 04/23/2017 12:43:00 Document Registration [id number] 09/16/2013 00:00:00 Document Registration [id number] 06/15/2012 12:39:00 Document Registration [id number] 11/11/2011 12:17:00 Document Registration [id number] 10/19/2011 14:45:00 Document Registration
[2017-04-24 23:40] VITALS: BP 115/67
[2017-04-24 23:43] VITALS: BP 109/62
[2017-04-24 23:45] VITALS: BP 103/62
[2017-04-24] MEDS ORDERED: CATHETER FLUSH 10 ML SYR IV PRN (23:45)
[2017-04-24] MEDS ORDERED: ACETAMINOPHEN 325 MG TABLET/CAPLET (TYLENOL) PO PRN (23:45)
[2017-04-25] VITALS (35 sets, daily range): BP systolic 91–117; BP diastolic 47–96
[2017-04-25] MEDS: LEVOFLOXACIN 750 MG/D5W 150 ML PRE-MIX IV SCH
[2017-04-25 00:01] LABS: ABG BASE EXCESS -6.2 MMOL/L (-2.5-2.5); ABG OXYGEN SATURATION 99 % (94-100); ABG PCO2 23 MMHG (35-45); ABG PH 7.47 (7.37-7.43); ABG PO2 89 MMHG (79-93); ABG TCO2 17.6 MMOL/L (21.0-31.0)
[2017-04-25 00:02] LABS: ALLENS TEST YES-POS; INSPIRED O2 45% BIPAP; PATIENT TEMP 97.8; VENTILATOR NO
[2017-04-25] MEDS: PIPERACILLIN/TAZOBACTAM 4.5 GM/D5W 100 ML IVPB IV SCH ×6 (02:07→17:18)
[2017-04-25] MEDS ORDERED: RT-ALBUTEROL/IPRATROPIUM 3 ML (DUONEB) VIAL INH PRN (02:30)
[2017-04-25] MEDS: CATHETER FLUSH 10 ML SYR IV SCH ×3 (04:20→21:31)
[2017-04-25] MEDS: NS IV 1000 ML 1,000 ML IV SCH ×3 (04:20→21:05)
[2017-04-25 04:47] LABS: BASOPHILS # (AUTO) 0.1 10^3/uL (0.0-0.1); BASOPHILS % (AUTO) 0 % (0-10); EOSINOPHILS # (AUTO) 0.2 10^3/uL (0.0-0.3); EOSINOPHILS % (AUTO) 1 % (0-10); HEMATOCRIT 30 % (40-54); HEMOGLOBIN 10.5 G/DL (13.3-17.7); LYMPHOCYTES # (AUTO) 1.3 X 10^3 (1.0-4.0); LYMPHOCYTES % (AUTO) 7 % (12-44); MEAN CORPUSCULAR HEMOGLOBIN 28 PG (25-34); MEAN CORPUSCULAR HGB CONC 35 G/DL (32-36); MEAN CORPUSCULAR VOLUME 80 FL (80-99); MEAN PLATELET VOLUME 10.7 FL (7.4-10.4); MONOCYTES # (AUTO) 3.8 X 10^3 (0.0-1.0); MONOCYTES % (AUTO) 20 % (0-12); NEUTROPHILS # (AUTO) 13.7 X 10^3 (1.8-7.8); NEUTROPHILS % (AUTO) 72 % (42-75); PLATELET COUNT 221 10^3/uL (130-400); RED BLOOD COUNT 3.78 10^6/uL (4.35-5.85); RED CELL DISTRIBUTION WIDTH 14.1 % (10.0-14.5)
[2017-04-25 05:15] LABS: ALANINE AMINOTRANSFERASE 17 U/L (0-55); ALBUMIN 2.9 GM/DL (3.2-4.5); ALKALINE PHOSPHATASE 56 U/L (40-136); BILIRUBIN,TOTAL 0.9 MG/DL (0.1-1.0); BUN/CREATININE RATIO 14; CALCIUM 8.2 MG/DL (8.5-10.1); CARBON DIOXIDE 17 MMOL/L (21-32); CHLORIDE 100 MMOL/L (98-107); CREATININE SERUM 0.95 MG/DL (0.60-1.30); GFR ESTIMATED > 60; GLUCOSE 181 MG/DL (70-105); MAGNESIUM 1.8 MG/DL (1.8-2.4); PHOSPHORUS 2.5 MG/DL (2.3-4.7); POTASSIUM 4.5 MMOL/L (3.6-5.0); SODIUM 127 MMOL/L (135-145); TOTAL PROTEIN 6.1 GM/DL (6.4-8.2)
[2017-04-25] MEDS: KCL 20 MEQ TAB (K-DUR) PO SCH (05:18)
[2017-04-25] MEDS: MAGNESIUM 1 GM/100 ML IVPB 100 ML IV SCH (05:18)
[2017-04-25] MEDS: POTASSIUM CL 10MEQ/50ML IVPB 50 ML IV SCH (05:18)
[2017-04-25] MEDS: inSUlin (REGULAR) HUMAN 1 UNIT/0.01 ML (CHARGE PER UNIT) SC SCH ×5 (05:43→21:31)
--- NOTE | 2017-04-25 06:36 | Pulmonary Consultation ---
History of Present Illness History of Present Illness Date of Consultation 04/25/17 06:30 Time Seen by Provider: 06:30 Date of Admission History of Present Illness 82yo presented to ED via EMS secondary to worsening SOB and confusion. Pt had hypoxia with Sp02 of 74% upon EMS arrival. Pt has been treated as outpatient for PNA with Keflex over the last 3 wks. I am consulted for ICU management. Pt is requiring BiPAP currently. Allergies and Home Medications Allergies Coded Allergies: No Known Drug Allergies (Unverified , 02/24/09) Home Medications Acetaminophen 325 Mg Tablet, 650 MG PO HS PRN for PAIN-MILD, (Reported) TAKES 2 (325 MG) TABLETS Clopidogrel Bisulfate 75 Mg Tablet, 75 MG PO DAILY, (Reported) Metformin HCl 500 Mg Tablet, 500 MG PO BID WITH MEALS, (Reported) Sitagliptin Phosphate 100 Mg Tablet, 100 MG PO DAILY, (Reported) Sodium Hypochlorite 473 Ml Solution, TP DAILY, (Reported) Warfarin Sodium 5 Mg Tablet, 5 MG PO HUGGINS,,,SA, (Reported) Warfarin Sodium 5 Mg Tablet, 7.5 MG PO MO,,, (Reported) TAKES 1 & 1/2 OF A (5 MG) TABLET Past Rrnanyc-Poidnv-Zkzmjh Hx Patient Social History Alcohol Use: Denies Use Recreational Drug Use: No Smoking Status: Never a Smoker Type Used: Smokeless Tobacco Recent Foreign Travel: No Contact w/Someone Who Travel: No Recent Infectious Disease Expo: No Immunizations Up To Date PED Vaccines UTD: No Date of Pneumonia Vaccine: Jan 20, 2018 Date of Influenza Vaccine: Jan 20, 2018 Seasonal Allergies Seasonal Allergies: No Surgeries History of Surgeries: Yes (KNEE SURGERY, HERNIA REPAIR) Respiratory History of Respiratory Disorde: No Currently Using CPAP: No Currently Using BIPAP: No Cardiovascular History of Cardiac Disorders: Yes (PACEMAKER) Neurological History of Neurological Disord: Yes Reproductive System Hx Reproductive Disorders: No Genitourinary History of Genitourinary Disor: No Gastrointestinal History of Gastrointestinal Di: Yes (COLOSTEMY BAG) Musculoskeletal History of Musculoskeletal Dis: Yes Endocrine History of Endocrine Disorders: Yes HEENT History of HEENT Disorders: No Cancer History of Cancer: Yes (SKIN CANCER) Cancer: Colon Psychosocial History of Psychiatric Problem: No Integumentary History of Skin or Integumenta: Yes (Hx of Skin Cancer) Blood Transfusions History of Blood Disorders: No Adverse Reaction to a Blood Tr: No Review of Systems Time Seen by Provider: 07:53 Constitutional: Weakness, Malaise Respiratory: Cough, Shortness of breath, SOB with excertion, Wheezing Cardiovascular: Palpitations, Paroxysmal Noc. Dyspnea, Lt Headedness Neurological: Weakness, Confusion Exam Exam Vital Signs Date Time Temp Pulse Resp B/P (MAP) Pulse Ox O2 Delivery O2 Flow Rate FiO2 04/25/17 06:25 107 35 91 Nasal Cannula 5.00 04/25/17 06:00 69 24 106/58 (74) 97 NIV Bilevel 45.00 04/25/17 05:00 87 23 109/63 (78) 98 NIV Bilevel 45.00 04/25/17 04:10 100 NIV Bilevel 45 04/25/17 04:00 100.0 74 19 110/59 (76) 98 NIV Bilevel 45.00 04/25/17 03:03 90 22 100 45.00 04/25/17 03:00 87 17 114/96 (102) 100 NIV Bilevel 45.00 04/25/17 02:34 89 27 111/63 (79) 99 NIV Bilevel 45.00 04/25/17 02:23 87 95 04/25/17 02:00 87 23 104/58 (73) 95 Nasal Cannula 4.00 04/25/17 01:02 NIV Bilevel 45 04/25/17 01:00 95 26 110/70 (83) 94 Nasal Cannula 4.00 04/25/17 01:00 95 04/25/17 00:48 94 Nasal Cannula 4.00 04/25/17 00:45 83 17 107/66 (80) 99 NIV Bilevel 45.00 04/25/17 00:30 85 23 109/65 (80) 100 NIV Bilevel 45.00 04/25/17 00:15 81 15 104/63 (77) 99 NIV Bilevel 45.00 04/25/17 00:00 97.8 90 32 113/65 (81) 100 NIV Bilevel 45.00 04/24/17 23:45 86 27 103/62 (76) 98 NIV Bilevel 45.00 04/24/17 23:43 91 28 109/62 (78) 99 NIV Bilevel 45.00 04/24/17 23:41 93 04/24/17 23:40 97.8 91 28 115/67 (83) 99 NIV Bilevel 45.00 04/24/17 23:30 86 22 95 Room Air 04/24/17 22:27 94 33 98 45.00 04/24/17 21:29 98.3 102 20 118/60 (79) 93 Nasal Cannula 4.00 I & O 04/25/17 07:00 Intake Total 2600 ml Output Total 1500 ml Balance 1100 ml General Appearance: Severe Distress Respiratory: Accessory Muscle Use, Decreased Breath Sounds, Respiratory Distress Capillary Refill: Less Than 3 Seconds Gastrointestinal: normal bowel sounds, non tender Extremity: Normal Capillary Refill, Normal Inspection, Normal Range of Motion Neurologic/Psychiatric: Alert, Oriented x3 Skin: Normal Color, Warm/Dry Lymphatic: No Adenopathy Results Lab Laboratory Tests 04/24/17 21:37 04/25/17 04:11 Assessment/Plan Assessment/Plan Severe Sepsis with pneumonia -IVF -Using conservative IVF secondary to respiratory distress and pt is a DNR. I expect his respiratory status is going to get much worse. Prognosis is poor. Acute respiratory failure -BIPAP -Pt is DNR Metabolic acidosis -Will give 2 amps of Bicarb Hyponatremia -monitor CAD HX Hx of CVA with left sided paralysis CXR and labs reviewed. 255 Clinical Quality Measures DVT/VTE Risk/Contraindication: Risk Factor Score Per Nursin RFS Level Per Nursing on Admit: 4+=Very High LEI MALDONADO DO Apr 25, 2017 06:36
[2017-04-25] MEDS ORDERED: SODIUM BICARB 8.4% 50 MEQ/50 ML (ABBOTT) SYR IV ONE (06:45)
[2017-04-25] MEDS ORDERED: RT-ALBUTEROL/IPRATROPIUM 3 ML (DUONEB) VIAL INH SCH ×2 (07:00→09:00)
[2017-04-25] MEDS: RT-ALBUTEROL/IPRATROPIUM 3 ML (DUONEB) VIAL INH SCH ×4 (07:50→19:33)
--- NOTE | 2017-04-25 08:05 | Diagnostic Imaging Report ---
INDICATION: Cough and congestion. COMPARISON: 02/24/2009. FINDINGS: Bilateral interstitial and airspace opacities are greatest in the mid and upper lung zones. The airspace consolidations are greatest in the right upper lobe. No pleural effusion or pneumothorax. The heart is mildly enlarged with left pectoral transvenous dual-chamber pacemaker in place. Atherosclerotic aorta. IMPRESSION: Bilateral pulmonary opacities could relate to pulmonary edema, multifocal pneumonia, pulmonary hemorrhage or ARDS. Dictated by: Dictated on workstation # [id number]
[2017-04-25] MEDS ORDERED: RT-ALBUINH IH (08:17)
[2017-04-25] MEDS ORDERED: METF-478 PO (08:17)
[2017-04-25] MEDS ORDERED: WARF5TAB8 PO ×2 (08:17→13:24)
--- NOTE | 2017-04-25 10:19 | Diagnostic Imaging Report ---
CHEST 1 VIEW, AP/PA ONLY INDICATION: Sepsis. COMPARISON: 04/24/2017 FINDINGS: Support Devices: Stable left pectoral dual-chamber pacemaker. Chest: Bilateral pulmonary opacities are unchanged. No pleural effusion or pneumothorax. Stable cardiomediastinal silhouette. Central vascular indistinctness is present. IMPRESSION: 1. No change in multifocal pulmonic consolidations which could relate to a combination of pneumonia, pulmonary edema and/or ARDS. Dictated on workstation # [id number]
[2017-04-25] MEDS ORDERED: SITA100T12 PO (11:52)
[2017-04-25] MEDS ORDERED: METF500T4 PO (11:52)
[2017-04-25] MEDS ORDERED: CLOP75TA28 PO (13:24)
[2017-04-25] MEDS ORDERED: SODI473S7 TP (13:24)
--- NOTE | 2017-04-25 13:29 | Consultation-Cardiology ---
HPI-Cardiology Cardiology Consultation: Date of Consultation 04/25/17 Date of Admission Attending Physician Fartun Hobbs DO Admitting Physician Andrea Monet MD Consulting Physician Alexx SANTOS MD HPI: Time Seen by Provider: 12:00 Chief Complaint: Shortness of breath This is a 82-year-old gentleman who is a patient of Dr. Heath. He has history of PAD, mild CAD, aortic stenosis, history of complete heart block status post permanent pacemaker. He presents with significant shortness of breath and was found to be septic. The patient is DO NOT RESUSCITATE. His also in mild heart failure. The patient denies any chest pain. Review of Systems-Cardiology Review of Systems Constitutional: As described under HPI Eyes: No As described under HPI, No no symptoms reported, No blindness, No blurred vision, No contact lenses, No drainage, No decreased acuity, No foreign body sensation, No glasses, No inflammation, No pain, No photophobia, No previous injury, No shadows, No tunnel vision, No other, No vision change Ears/Nose/Throat: No As described under HPI, No no symptoms reported, No chronic hearing loss, No epistaxis, No ear discharge, No ear pain, No loose teeth, No mouth pain, No mouth swelling, No nasal drainage, No nose pain, No recent hearing loss, No throat pain, No throat swelling, No ulcerations, No other Respiratory: cough, orthopnea Cardiovascular: No no symptoms reported, No As described under HPI, No chest pain, No edema, No irregular heart rate, No lightheadedness, No palpitations, No syncope, No other Gastrointestinal: No no symptoms reported, No As described under HPI, No abdomen distended, No abdominal pain, No blood streaked bowels, No constipation , No diarrhea, No difficulty swallowing, No nausea, No poor appetite, No poor fluid intake, No rectal bleeding, No vomiting, No other, No nausea/vomiting/ diarrhea, No stool coloration changes Genitourinary: No no symptoms reported, No As described under HPI, No burning, No dysuria, No discharge, No frequency, No flank pain, No hematuria, No incontinence, No pain, No urgency, No other, No urine frequency changes, No urine coloration changes Musculoskeletal: No no symptoms reported, No As describe under HPI, No back pain, No gout, No joint pain, No joint swelling, No muscle pain, No muscle stiffness, No neck pain, No other Skin: No no symptoms reported, No As described under HPI, No change in color, No change in hair/nails, No dryness, No lesions, No lumps, No rash, No other, No skin related problems, No ulcerations, No rash on exposed areas, No ulcerations on exposed areas Psychiatric/Neurological: No no symptoms reported, No As described under HPI, No anxiety, No depression, No emotional problems, No headache, No numbness, No pre-existing deficit, No seizure, No tingling, No tremors, No weakness, No other , No focal weakness, No syncope Hematologic: No no symptoms reported, No As described under HPI, No anemia, No blood clots, No easy bleeding, No easy bruising, No swollen glands, No other, No bleeding abnormalities EHH-Nfzjmg-Ensrfy Hx Patient Social History Alcohol Use: Denies Use Recreational Drug Use: No Smoking Status: Never a Smoker Type Used: Smokeless Tobacco Recent Foreign Travel: No Recent Infectious Disease Expo: No Hospitalization with Isolation: Denies Physical Abuse Screen: No Sexual Abuse: No Immunizations Up To Date Date of Pneumonia Vaccine: Jan 20, 2018 Date of Influenza Vaccine: Jan 20, 2018 Past Medical History PMH As described under Assessment. Allergies and Home Medications Allergies Coded Allergies: No Known Drug Allergies (Unverified , 02/24/09) Home Medications Acetaminophen 325 Mg Tablet, 325 MG PO PRN, (Reported) Albuterol Sulfate 1 Puff Puff, 2 PUFF IH Q4H, (Reported) 1 PUFF = 90 MCG Clopidogrel Bisulfate 75 Mg Tablet, 75 MG PO DAILY, #90 Ref 3 Prescribed by: EVAN LAMAR on 01/20/17 0849 Metformin HCl 500 Mg Tablet, 500 MG PO BID WITH MEALS, (Reported) Sitagliptin Phosphate 100 Mg Tablet, 100 MG PO DAILY, (Reported) Warfarin Sod 5 Mg Tab, 7.5 MG PO M,W,F,SA,HUGGINS, (Reported) MON, WED, FRI, SAT, SUN Warfarin Sodium 5 Mg Tablet, 5 MG PO PD, (Reported) Physical Exam-Cardiology Physical Exam Vital Signs/I&O Vital Sign - Last 12Hours 04/25/17 04/25/17 04/25/17 04/25/17 02:00 02:23 02:34 03:00 Pulse 87 87 89 87 Resp 23 27 17 B/P (MAP) 104/58 (73) 111/63 (79) 114/96 (102) Pulse Ox 95 95 99 100 O2 Delivery Nasal Cannula NIV Bilevel NIV Bilevel O2 Flow Rate 4.00 45.00 45.00 04/25/17 04/25/17 04/25/17 04/25/17 03:03 04:00 04:10 05:00 Temp 100.0 Pulse 90 74 87 Resp 22 19 23 B/P (MAP) 110/59 (76) 109/63 (78) Pulse Ox 100 98 100 98 O2 Delivery NIV Bilevel NIV Bilevel NIV Bilevel O2 Flow Rate 45.00 45.00 45.00 FiO2 45 04/25/17 04/25/17 04/25/17 04/25/17 06:00 06:25 06:40 07:00 Pulse 69 107 95 90 Resp 24 35 38 26 B/P (MAP) 106/58 (74) 117/60 (79) Pulse Ox 97 91 91 99 O2 Delivery NIV Bilevel Nasal Cannula NIV Bilevel NIV Bilevel O2 Flow Rate 45.00 5.00 40.00 40.00 04/25/17 04/25/17 04/25/17 04/25/17 07:15 07:51 08:00 08:00 Pulse 86 91 86 Resp 27 24 B/P (MAP) 91/61 (71) Pulse Ox 99 100 97 O2 Delivery NIV Bilevel NIV Bilevel O2 Flow Rate 40.00 40.00 FiO2 45 04/25/17 04/25/17 09:00 10:47 Pulse 95 92 Resp 22 34 B/P (MAP) 111/86 (94) Pulse Ox 92 97 O2 Delivery NIV Bilevel O2 Flow Rate 40.00 40.00 Intake and Output 04/25/17 00:00 Intake Total 1100 ml Balance 1100 ml Capillary Refill : Less Than 3 Seconds Constitutional: appears stated age, apparent distress HEENT: No PERRL, No normal ENT inspection, No TMs normal, No pharynx normal, No scleral icterus (R), No scleral icterus (L), No pale conjunctivae (R), No pale conjunctivae (L), No photophobia, No TM abnormal (R), No TM abnormal (L), No pharyngeal erythema, No tonsillar exudate, No other, No discharge, No EOMI, No hearing is well preserved, No hard of hearing, No oral hygience is good, No ulceration, No xanthelasmas are seen Neck: No non-tender, No full range of motion, No supple, No normal inspection, No carotid bruit, No limited range of motion, No lymphadenopathy (R), No lymphadenopathy (L), No tender lateral, No tender midline, No thyromegaly, No other, No carotid pulses are 2 + bilaterally, No with good upstrokes Respiratory: respiratory distress, crackles Cardiovascular: regular rate-rhythm, tachycardia, S1 and S2, systolic murmur Gastrointestinal: No tender, No soft, No round, No distended, No pulsatile mass , No organomegaly, No guarding, No rebound, No tenderness, No hernia, No mass, No audible bowel sounds, No abnormal bowel sounds, No abdominal bruits, No spleenomegaly, No other Rectal: deferred Extremities: No normal range of motion, No non-tender, No normal inspection, No pedal edema, No calf tenderness, No normal capillary refill, No pelvis stable , No calf tenderness, No inflammation, No pedal edema, No slow capillary refill , No swelling, No other, No abrasion, No clubbing, No cyanosis, No ecchymosis, No laceration, No no lower extremity edema bilateral, No significant edema, No tenderness, No wound Neurologic/Psychiatric: No sales engineer II-XII nml as tested, No no motor/sensory deficits, No alert, No normal mood/affect, No oriented x 3, No abnormal cerebellar tests, No abnormal sales engineer II-XII, No abnormal gait, No aphasia, No EOM palsy, No facial droop, No motor weakness, No sensory deficit, No depressed affect, No disoriented x 3, No other, No grossly intact, No power is 5/5 both on sides Skin: No normal color, No warm/dry, No cyanosis, No cool, No diaphoresis, No damp, No ecchymosis, No jaundice, No mottled, No pallor, No rash, No tattoos/ piercings, No ulcerations, No rash on exposed areas, No ulcerations on exposed areas, No other Data Review Labs Laboratory Tests 04/24/17 21:37: White Blood Count 27.1H, Red Blood Count 4.12L, Hemoglobin 11.3L, Hematocrit 33L , Mean Corpuscular Volume 79L, Mean Corpuscular Hemoglobin 27, Mean Corpuscular Hemoglobin Concent 35, Red Cell Distribution Width 14.0, Platelet Count 252, Mean Platelet Volume 10.4, Neutrophils (%) (Auto) 78H, Lymphocytes (%) (Auto) 5L , Monocytes (%) (Auto) 17H, Eosinophils (%) (Auto) 0, Basophils (%) (Auto) 0, Neutrophils # (Auto) 21.0H, Lymphocytes # (Auto) 1.3, Monocytes # (Auto) 4.7H, Eosinophils # (Auto) 0.1, Basophils # (Auto) 0.1, Neutrophils % (Manual) 82, Lymphocytes % (Manual) 5, Monocytes % (Manual) 9, Eosinophils % (Manual) 0, Basophils % (Manual) 1, Band Neutrophils 2, Reactive Lymphocytes 1, Toxic Granulation 2+, Poikilocytosis SLIGHT, Anisocytosis MODERATE, Stomatocytes SLIGHT, Elliptocytes SLIGHT, Rouleau SLIGHT, Prothrombin Time 44.4H, INR Comment 4.8H, Sodium Level 125*L, Potassium Level 4.7, Chloride Level 96L, Carbon Dioxide Level 15L, Anion Gap 14, Blood Urea Nitrogen 14, Creatinine 0.99 , Estimat Glomerular Filtration Rate > 60, BUN/Creatinine Ratio 14, Glucose Level 237H, Lactic Acid Level 2.93*H, Calcium Level 8.6, Magnesium Level 1.6L, Total Bilirubin 0.9, Aspartate Amino Transf (AST/SGOT) 29, Alanine Aminotransferase (ALT/SGPT) 20, Alkaline Phosphatase 78, B-Type Natriuretic Peptide 1213.9H, Total Protein 6.9, Albumin 3.2 04/24/17 23:01: Blood Gas Puncture Site R RAD, Blood Gas Patient Temperature 98.3, Arterial Blood pH 7.43, Arterial Blood Partial Pressure CO2 28L, Arterial Blood Partial Pressure O2 43L, Arterial Blood HCO3 19L, Arterial Blood Total CO2 19.4L, Arterial Blood Oxygen Saturation 69L, Arterial Blood Base Excess -5.0L, Walt Test YES-POS, Blood Gas Ventilator Setting NO, Blood Gas Inspired Oxygen BIPAP 04/24/17 23:42: Lactic Acid Level 2.40*H 04/24/17 23:52: Blood Gas Puncture Site R BRACH, Blood Gas Patient Temperature 97.8, Arterial Blood pH 7.47H, Arterial Blood Partial Pressure CO2 23L, Arterial Blood Partial Pressure O2 89, Arterial Blood HCO3 18L, Arterial Blood Total CO2 17.6L, Arterial Blood Oxygen Saturation 99, Arterial Blood Base Excess -6.2L, Walt Test YES-POS, Blood Gas Ventilator Setting NO, Blood Gas Inspired Oxygen 45% BIPAP 04/25/17 04:11: White Blood Count 19.0H, Red Blood Count 3.78L, Hemoglobin 10.5L, Hematocrit 30L , Mean Corpuscular Volume 80, Mean Corpuscular Hemoglobin 28, Mean Corpuscular Hemoglobin Concent 35, Red Cell Distribution Width 14.1, Platelet Count 221, Mean Platelet Volume 10.7H, Neutrophils (%) (Auto) 72, Lymphocytes (%) (Auto) 7L , Monocytes (%) (Auto) 20H, Eosinophils (%) (Auto) 1, Basophils (%) (Auto) 0, Neutrophils # (Auto) 13.7H, Lymphocytes # (Auto) 1.3, Monocytes # (Auto) 3.8H, Eosinophils # (Auto) 0.2, Basophils # (Auto) 0.1, Sodium Level 127L, Potassium Level 4.5, Chloride Level 100, Carbon Dioxide Level 17L, Anion Gap 10, Blood Urea Nitrogen 13, Creatinine 0.95, Estimat Glomerular Filtration Rate > 60, BUN/ Creatinine Ratio 14, Glucose Level 181H, Calcium Level 8.2L, Phosphorus Level 2.5, Magnesium Level 1.8, Total Bilirubin 0.9, Aspartate Amino Transf (AST/SGOT ) 27, Alanine Aminotransferase (ALT/SGPT) 17, Alkaline Phosphatase 56, Total Protein 6.1L, Albumin 2.9L 04/25/17 10:59: Glucometer 153H Microbiology 04/25/17 Influenza Types A,B Antigen (JORGE) - Final, Complete ECG Impression ECG Comment Paced rhythm. A/P-Cardiology Assessment/Admission Diagnosis Pneumonia, Sepsis, Metabolic acidosis, PAD, Mild CAD, History of stroke, Permanent pacemaker for complete heart block, Aortic stenosis Plan Severe sepsis and pneumonia. In respiratory distress. Defer to primary team and pulmonology. Shortness of breath could also be secondary to congestive heart failure. Increased BNP. Fluid status is difficult to manage since the patient requires IV fluids for severe sepsis and metabolic acidosis, however, that could make heart failure worse. If given a choice I would recommend that IV fluids be given for severe sepsis. Poor prognosis. Repeat echocardiogram. Peripheral arterial disease, moderately severe on peripheral angiography of (He had single-vessel run-off on the right side and a dual-vessel run- off below the knee) and severe on seg pressures of 11/26/16 Last peripheral angio on 01/19/17: 99 to 100% mid vessel occlusion of the left superficial femoral artery which was reduced to less than 10% following successful balloon angioplasty. Two-vessel runoff in the left leg consisting of the peroneal and anterior tibial arteries which themselves are of a small caliber and are diffusely diseased (mod to severe)/ The left distal anterior tibial artery is occluded. 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 This was functioning normally per last interrogation of November 2012. Has since not been compliant with f/u Severe aortic stenosis. Echo of 01/18/17: AoV area 0.8 sq cm with mean grad 33 mmHg, LVEF 60-65%, grade I diastolic dysfunction, mod TR, PASP 45 mmHg Mild coronary artery disease on cardiac catheterization of February 2009. Last myocardial perfusion imaging was on 01/18/2011. It did not show any myocardial ischemia or infarction and left ventricular ejection fraction was 70%. Chronic warfarin anticoagulation following a stroke several years ago. The patient does not have any documented atrial fibrillation or significant carotid arterial disease. 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 Hyperlipidemia being treated with atorvastatin and Trilipix. Mild to moderate carotid arterial disease per ultrasonography of May 2011. Thank you for your consultation. Please call me if you have any questions. Abdirashid Santos MD, FACP, FACC, FSCAI, FHRS, CCDS Interventional Cardiology Cardiac Electrophysiology Vascular Medicine and Endovascular Interventions Clinical Quality Measures DVT/VTE Risk/Contraindication: Risk Factor Score Per Nursin RFS Level Per Nursing on Admit: 4+=Very High Alexx SANTOS MD Apr 25, 2017 1:29 pm
--- NOTE | 2017-04-25 13:49 | History & Physical-Hospitalist ---
HPI History of Present Illness: HPI/Chief Complaint CC: Dyspnea HPI: This is an 82-year-old white male clinic patient of Dr. Monet in [place] with a history of permanent pacemaker due to complete heart block placed by Dr. Heath and a history of stroke with left-sided weakness who presents to the ER with dyspnea after failed Keflex treatment for 3 weeks for upper respiratory illness. He was found to have extensive bilateral pneumonia and congestive heart failure with BNP elevation at 1218 and requiring BiPAP and severely poor prognosis. He is DO NOT RESUSCITATE which is reasonable and patient is sleeping currently on BiPAP vitals remained stable but grave prognosis shared by other consultants. Source: RN/MD Exam Limitations: clinical condition Date Seen 04/25/17 Time Seen by Provider: 12:15 Attending Physician Fartun Hobbs Maxwell MD Referring Physician Date of Admission Apr 24, 2017 at 22:30 Home Medications & Allergies Home Medications Reviewed patient Home Medication Reconciliation Form Allergies Allergies Coded Allergies No Known Drug Allergies ([id number]/6/09) Past Xarxvbl-Avveds-Vzsadp Hx Patient Social History Employed/Student: retired Alcohol Use: Denies Use Recreational Drug Use: No Smoking Status: Never a Smoker Type Used: Smokeless Tobacco Physical Abuse Screen: No Sexual Abuse: No Recent Foreign Travel: No Contact w/other who traveled: No Recent Infectious Disease Expo: No Immunizations Up To Date Pediatric: No Date of Pneumonia Vaccine: Jan 20, 2018 Date of Influenza Vaccine: Jan 20, 2018 Seasonal Allergies Seasonal Allergies: No Surgeries Yes (KNEE SURGERY, HERNIA REPAIR) Respiratory No Currently Using CPAP: No Currently Using BIPAP: No Cardiovascular Yes (PACEMAKER) Atrial Fibrillation, High Cholesterol, Hypertension Neurological Yes Stroke Reproductive System Hx Reproductive Disorders: No Genitourinary Yes Renal Failure Gastrointestinal Yes (COLOSTOMY BAG) Musculoskeletal Yes Endocrine History of Endocrine Disorders: Yes Endocrine Disorders: Diabetes, Non-Insulin dep HEENT History of HEENT Disorders: No Cancer Yes (SKIN CANCER) Colon Psychosocial History of Psychiatric Problem: No Integumentary History of Skin or Integumenta: Yes (Hx of Skin Cancer) Blood Transfusions History of Blood Disorders: No Adverse Reaction to a Blood Tr: No Review of Systems ROS-Unable to Obtain: unable to ascertain due to sleeping soundly on biPAP Constitutional: see HPI Physical Exam Physical Exam Vital Signs Vital Sign - Last 12Hours 04/24/17 04/25/17 21:29 01:02 Temp 98.3 Pulse 102 Resp 20 B/P (MAP) 118/60 (79) Pulse Ox 93 O2 Delivery Nasal Cannula O2 Flow Rate 4.00 FiO2 45 Capillary Refill : Less Than 3 Seconds General Appearance: No Apparent Distress, WD/WN, Chronically ill Eyes: Bilateral Eye Normal Inspection, Bilateral Eye PERRL Neck: Normal Inspection, Supple Respiratory: No Accessory Muscle Use, No Respiratory Distress, Crackles, Decreased Breath Sounds, Wheezing Cardiovascular: Regular Rate, Rhythm, No Gallop, No JVD, No Murmur, Normal Peripheral Pulses Gastrointestinal: Normal Bowel Sounds, No Organomegaly, No Pulsatile Mass, Non Tender, Soft Extremity: Normal Capillary Refill, Normal Inspection, Normal Range of Motion, Non Tender, No Calf Tenderness, Swelling Neurologic/Psychiatric: Other (sleeping on biPAP) Skin: Normal Color, Warm/Dry Lymphatic: No Adenopathy Results Results/Procedures Lab Laboratory Tests 04/24/17 21:37 04/25/17 04:11 Assessment/Plan Admission Diagnosis Assessment: Pneumonia failed Kelfex duration of therapy 3 weeks by PCP Severe sepsis Metabolic acidosis PAD Mild CAD History of stroke w/left sided weakness Permanent pacemaker for complete heart block Aortic stenosis Hyponatremia Supratherapeutic INR holding Coumadin DM Assessment and Plan Plan: Poor prognosis DNR Abx Lasix BiPAP Monitor closely Hold Metformin Clinical Quality Measures DVT/VTE Risk/Contraindication: Risk Factor Score Per Nursin RFS Level Per Nursing on Admit: 4+=Very High FARTUN HOBBS DO Apr 25, 2017 13:49
[2017-04-25] MEDS ORDERED: ACETAMINOPHEN 325 MG TABLET/CAPLET (TYLENOL) PO PRN (14:00)
[2017-04-25] MEDS: morphine INJ 4 MG/ML 1 ML (VIAL/SYRINGE) IVP PRN ×2 (16:05→18:14)
[2017-04-25] MEDS: DAKIN'S 1/4 STRENGTH (0.125%) 473 ML BTL TOP SCH (16:05)
[2017-04-25] MEDS: CLOPIDOGREL 75 MG (PLAVIX) TABLET PO SCH (18:13)
[2017-04-26] VITALS (33 sets, daily range): BP systolic 93–139; BP diastolic 51–91
[2017-04-26] MEDS: LEVOFLOXACIN 750 MG/D5W 150 ML PRE-MIX IV SCH ×2 (00:14→23:05)
[2017-04-26] MEDS: PIPERACILLIN/TAZOBACTAM 4.5 GM/D5W 100 ML IVPB IV SCH ×6 (02:51→17:37)
[2017-04-26 04:52] LABS: ABG BASE EXCESS -4.7 MMOL/L (-2.5-2.5); ABG OXYGEN SATURATION 93 % (94-100); ABG PCO2 30 MMHG (35-45); ABG PH 7.42 (7.37-7.43); ABG PO2 62 MMHG (79-93); ABG TCO2 19.7 MMOL/L (21.0-31.0)
[2017-04-26 04:53] LABS: ALLENS TEST YES-POS; INSPIRED O2 35% BIPAP; PATIENT TEMP 99.4; VENTILATOR NO
[2017-04-26 05:16] LABS: BASOPHILS # (AUTO) 0.2 10^3/uL (0.0-0.1); BASOPHILS % (AUTO) 1 % (0-10); EOSINOPHILS # (AUTO) 0.6 10^3/uL (0.0-0.3); EOSINOPHILS % (AUTO) 2 % (0-10); HEMATOCRIT 32 % (40-54); HEMOGLOBIN 10.7 G/DL (13.3-17.7); LYMPHOCYTES # (AUTO) 3.4 X 10^3 (1.0-4.0); LYMPHOCYTES % (AUTO) 12 % (12-44); MEAN CORPUSCULAR HEMOGLOBIN 27 PG (25-34); MEAN CORPUSCULAR HGB CONC 33 G/DL (32-36); MEAN CORPUSCULAR VOLUME 82 FL (80-99); MEAN PLATELET VOLUME 10.6 FL (7.4-10.4); MONOCYTES # (AUTO) 4.8 X 10^3 (0.0-1.0); MONOCYTES % (AUTO) 16 % (0-12); NEUTROPHILS # (AUTO) 20.1 X 10^3 (1.8-7.8); NEUTROPHILS % (AUTO) 69 % (42-75); PLATELET COUNT 281 10^3/uL (130-400); RED CELL DISTRIBUTION WIDTH 14.4 % (10.0-14.5); WHITE BLOOD COUNT 29.1 10^3/uL (4.3-11.0)
[2017-04-26] MEDS: CATHETER FLUSH 10 ML SYR IV SCH ×3 (05:18→21:42)
[2017-04-26 05:34] LABS: BUN/CREATININE RATIO 14; CALCIUM 8.4 MG/DL (8.5-10.1); CARBON DIOXIDE 19 MMOL/L (21-32); CHLORIDE 101 MMOL/L (98-107); CREATININE SERUM 0.87 MG/DL (0.60-1.30); GFR ESTIMATED > 60; GLUCOSE 96 MG/DL (70-105); MAGNESIUM 1.9 MG/DL (1.8-2.4); PHOSPHORUS 2.4 MG/DL (2.3-4.7); POTASSIUM 4.1 MMOL/L (3.6-5.0); SODIUM 134 MMOL/L (135-145)
[2017-04-26 05:41] LABS: ANISOCYTOSIS SLIGHT; BAND NEUTROPHILS 0 %; BASOPHILS % (MANUAL) 0 %; EOSINOPHILS % (MANUAL) 0 %; LYMPHOCYTES % (MANUAL) 8 %; MONOCYTES % (MANUAL) 14 %; NEUTROPHILS % (MANUAL) 75 %; POLYCHROMASIA SLIGHT; REACTIVE LYMPHOCYTES 3 %
[2017-04-26] MEDS: NS IV 1000 ML 1,000 ML IV SCH (06:19)
[2017-04-26] MEDS: RT-ALBUTEROL/IPRATROPIUM 3 ML (DUONEB) VIAL INH SCH ×4 (06:39→20:09)
[2017-04-26] MEDS: KCL 20 MEQ TAB (K-DUR) PO SCH (06:59)
[2017-04-26] MEDS: POTASSIUM CL 10MEQ/50ML IVPB 50 ML IV SCH (06:59)
[2017-04-26] MEDS: inSUlin (REGULAR) HUMAN 1 UNIT/0.01 ML (CHARGE PER UNIT) SC SCH ×4 (06:59→21:42)
[2017-04-26] MEDS: MAGNESIUM 1 GM/100 ML IVPB 100 ML IV SCH (06:59)
[2017-04-26] MEDS ORDERED: BUMETANIDE 1 MG/4 ML (BUMEX) VIAL IV SCH (08:00)
--- NOTE | 2017-04-26 08:03 | Pulmonary Progress Note ---
Subjective Time Seen by Provider: 08:02 Subjective/Events-last exam Pt still requiring BiPAP however he states he feels better. Exam Exam Vital Signs Date Time Temp Pulse Resp B/P (MAP) Pulse Ox O2 Delivery O2 Flow Rate FiO2 04/26/17 07:00 83 110/60 (77) 91 NIV Bilevel 35.00 04/26/17 07:00 98 04/26/17 06:39 92 27 93 35.00 04/26/17 06:00 86 104/62 (76) 92 NIV Bilevel 35.00 04/26/17 05:00 104 112/86 (95) 91 NIV Bilevel 35.00 04/26/17 04:00 95 NIV Bilevel 35 04/26/17 04:00 99.4 84 111/62 (78) 94 NIV Bilevel 35.00 04/26/17 03:20 91 33 95 35.00 04/26/17 03:00 94 113/69 (84) 97 NIV Bilevel 35.00 04/26/17 02:00 83 104/62 (76) 96 NIV Bilevel 35.00 04/26/17 01:00 80 04/26/17 01:00 80 19 100/59 (73) 91 NIV Bilevel 35.00 04/26/17 00:23 82 17 96 NIV Bilevel 35.00 04/26/17 00:15 80 16 95 35.00 04/26/17 00:00 97 NIV Bilevel 40 04/26/17 00:00 98.8 73 14 93/58 (70) 97 NIV Bilevel 40.00 04/25/17 23:00 82 30 105/74 (84) 97 NIV Bilevel 40.00 04/25/17 22:00 79 20 99/64 (76) 96 NIV Bilevel 40.00 04/25/17 21:00 79 15 107/64 (78) 93 NIV Bilevel 40.00 04/25/17 20:25 79 16 94 40.00 04/25/17 20:00 99.3 80 17 99/57 (71) 95 NIV Bilevel 40.00 04/25/17 20:00 97 NIV Bilevel 40 04/25/17 19:33 80 22 96 40.00 04/25/17 19:00 77 18 92/58 (69) 94 NIV Bilevel 40.00 04/25/17 19:00 77 2/4/18 18:00 90 24 109/69 (82) 98 NIV Bilevel 40.00 04/25/17 17:00 93 20 105/47 (66) 95 NIV Bilevel 40.00 04/25/17 16:00 102 26 110/63 (79) 98 NIV Bilevel 40.00 04/25/17 16:00 100 NIV Bilevel 45 04/25/17 15:11 78 40 96 40.00 04/25/17 15:00 92 32 108/65 (79) 100 NIV Bilevel 40.00 04/25/17 14:00 94 24 107/60 (76) 100 NIV Bilevel 40.00 04/25/17 13:00 93 04/25/17 13:00 93 24 105/75 (85) 100 NIV Bilevel 40.00 04/25/17 12:00 87 22 110/66 (81) 96 NIV Bilevel 40.00 04/25/17 12:00 97.4 04/25/17 12:00 100 NIV Bilevel 45 04/25/17 11:00 90 22 105/77 (86) 98 NIV Bilevel 40.00 04/25/17 10:47 92 34 97 40.00 04/25/17 10:00 92 19 111/86 (94) 98 NIV Bilevel 40.00 04/25/17 09:00 95 22 111/86 (94) 92 NIV Bilevel 40.00 I & O 04/26/17 07:00 Intake Total 2280 ml Output Total 2100 ml Balance 180 ml General Appearance: No Apparent Distress, WD/WN, Chronically ill Neck: Normal Inspection, Supple Respiratory: No Accessory Muscle Use, No Respiratory Distress, Crackles, Decreased Breath Sounds, Wheezing Cardiovascular: Regular Rate, Rhythm, No Gallop, No JVD, No Murmur, Normal Peripheral Pulses Capillary Refill: Less Than 3 Seconds Gastrointestinal: normal bowel sounds, non tender Extremity: Normal Capillary Refill, Normal Inspection, Normal Range of Motion, Non Tender, No Calf Tenderness, Swelling Neurologic/Psychiatric: Other (sleeping on biPAP) Skin: Normal Color, Warm/Dry Lymphatic: No Adenopathy Results Lab Laboratory Tests 04/24/17 21:37 04/25/17 04:11 04/26/17 04:40 Assessment/Plan Assessment/Plan Sepsis with pneumonia Acute respiratory failure -BIPAP trial pt on Vapotherm -Will give 1 dose of bumex 2mg IV X 1 -Pt is DNR Hyponatremia -monitor CAD HX Hx of CVA with left sided paralysis CXR and labs reviewed. Will do ICU step down with patient. 233 Clinical Quality Measures DVT/VTE Risk/Contraindication: Risk Factor Score Per Nursin RFS Level Per Nursing on Admit: 4+=Very High LEI MALDONADO DO Apr 26, 2017 08:03
--- NOTE | 2017-04-26 08:17 | Diagnostic Imaging Report ---
INDICATION: Pneumonia, CHF, sepsis, pulmonary edema. TECHNIQUE: Single frontal view of the chest. COMPARISON: 04/25/2017 FINDINGS: There is near complete opacification throughout the right lung, stable since the prior study. Small right effusion is noted. There is airspace opacity in the left midlung, which also appear stable. The cardiomediastinal silhouette is unchanged. There is calcific atherosclerosis. The left-sided pacemaker leads are unremarkable. No pneumothorax is seen. IMPRESSION: 1. Overall stable aeration since the prior study with near complete opacification of the right lung and large consolidation in the left lung. Dictated by: Dictated on workstation # [id number]
--- NOTE | 2017-04-26 08:19 | Progress Note-Hospitalist ---
Subjective HPI/CC On Admission Date Seen by Provider: Apr 26, 2017 Time Seen by Provider: 07:25 CC: Dyspnea HPI: This is an 82-year-old white male clinic patient of Dr. Monet in [place] with a history of permanent pacemaker due to complete heart block placed by Dr. Heath and a history of stroke with left-sided weakness who presents to the ER with dyspnea after failed Keflex treatment for 3 weeks for upper respiratory illness. He was found to have extensive bilateral pneumonia and congestive heart failure with BNP elevation at 1218 and requiring BiPAP and severely poor prognosis. He is DO NOT RESUSCITATE which is reasonable and patient is sleeping currently on BiPAP vitals remained stable but grave prognosis shared by other consultants. Subjective/Events-last exam Pt reports feeling better. Thinks breathing is better. No complaints. Objective Exam Vital Signs Vital Sign - Last 12Hours 04/24/17 04/25/17 21:29 01:02 Temp 98.3 Pulse 102 Resp 20 B/P (MAP) 118/60 (79) Pulse Ox 93 O2 Delivery Nasal Cannula O2 Flow Rate 4.00 FiO2 45 Capillary Refill : Less Than 3 Seconds General Appearance: No Apparent Distress, WD/WN Respiratory: No Accessory Muscle Use, No Respiratory Distress, Crackles Cardiovascular: Regular Rate, Rhythm, No Murmur Gastrointestinal: Non Tender, Soft Neurologic/Psychiatric: Alert, Oriented x3, Other Results/Procedures Lab Laboratory Tests 04/26/17 04:40 Assessment/Plan Assessment and Plan Assess & Plan/Chief Complaint Pneumonia Diagnosis/Problems Diagnosis/Problems (1) Sepsis Status: Acute Assessment & Plan: due to pneumonia Continue Zosyn and Levaquin BC NGTD WBC up today- trend Qualifiers: Qualified Codes: A41.9 - Sepsis, unspecified organism (2) Pneumonia Status: Acute Assessment & Plan: Abx as above On BiPAP due to respiratory distress Pulm consulted, appreciate recs Qualifiers: (3) CHF exacerbation Status: Acute Assessment & Plan: Echo ordered Bumex x1 today Cardiology consulted, appreciate recs (4) Dysphagia Assessment & Plan: Nursing staff witnessed concerns for aspiration with sips Will consult Speech for dysphagia MELODIE Zarate MD Apr 26, 2017 08:19
--- NOTE | 2017-04-26 10:36 | Speech Therapy Progress Note ---
Therapy Progress Note Speech pathology consult received and chart reviewed. The clinician presented to the room to complete assessment, however, the patient was recently re-placed on BiPAP and appeared to be experiencing shortness of air. The patient's RN was present. Per RN, the patient was taken off of BiPAP and placed on vaso-therm for approximately 40 minutes before requiring replacement of BiPAP. The RN stated she would notify the clinician if the patient becomes appropriate for the swallow evaluation. The RN was notified that speech pathology was scheduled back to back until 14:45, however, would attempt to readjust schedule if needed. The RN verbalized comprehension. LAURIE ROSS Apr 26, 2017 10:36
--- NOTE | 2017-04-26 13:46 | Cardiology Progress Note ---
Cardiology SOAP Progress Note Subjective: in respiratory distress Objective: I&O/Vital Signs Vital Sign - Last 12Hours 04/26/17 04/26/17 04/26/17 04/26/17 02:00 03:00 03:20 04:00 Temp 99.4 Pulse 83 94 91 84 Resp 33 B/P (MAP) 104/62 (76) 113/69 (84) 111/62 (78) Pulse Ox 96 97 95 94 O2 Delivery NIV Bilevel NIV Bilevel NIV Bilevel O2 Flow Rate 35.00 35.00 35.00 35.00 04/26/17 04/26/17 04/26/17 04/26/17 04:00 05:00 06:00 06:39 Pulse 104 86 92 Resp 27 B/P (MAP) 112/86 (95) 104/62 (76) Pulse Ox 95 91 92 93 O2 Delivery NIV Bilevel NIV Bilevel NIV Bilevel O2 Flow Rate 35.00 35.00 35.00 FiO2 35 04/26/17 04/26/17 04/26/17 04/26/17 07:00 07:00 08:00 08:29 Pulse 98 83 85 B/P (MAP) 110/60 (77) 112/67 (82) Pulse Ox 91 95 94 O2 Delivery NIV Bilevel NIV Bilevel Vapotherm O2 Flow Rate 35.00 35.00 30.00 FiO2 50 04/26/17 04/26/17 04/26/17 04/26/17 08:55 09:00 09:22 09:52 Temp 97.8 Pulse 90 96 Resp 30 B/P (MAP) 139/90 (106) Pulse Ox 95 90 92 O2 Delivery NIV Bilevel NIV Bilevel NIV Bilevel O2 Flow Rate 35.00 40.00 35.00 FiO2 35 04/26/17 04/26/17 04/26/17 04/26/17 10:00 11:00 12:30 12:40 Pulse 93 91 87 Resp 26 B/P (MAP) 103/52 (69) 106/62 (77) Pulse Ox 94 94 91 95 O2 Delivery NIV Bilevel NIV Bilevel NIV Bilevel O2 Flow Rate 40.00 40.00 35.00 FiO2 35 Intake and Output 04/26/17 00:00 Intake Total 430 ml Output Total 700 ml Balance -270 ml Weight (Pounds): 173 Weight (Ounces): 9.0 Weight (Calculated Kilograms): [id number] Constitutional: appears stated age, apparent distress Respiratory: respiratory distress, crackles Cardiovascular: regular rate-rhythm, tachycardia, S1 and S2, systolic murmur Gastrointestional: No tender, No soft, No round, No distended, No pulsatile mass, No organomegaly, No guarding, No rebound, No tenderness, No hernia, No mass, No audible bowel sounds, No abnormal bowel sounds, No abdominal bruits, No spleenomegaly, No other Extremities: No normal range of motion, No non-tender, No normal inspection, No pedal edema, No calf tenderness, No normal capillary refill, No pelvis stable , No calf tenderness, No inflammation, No pedal edema, No slow capillary refill , No swelling, No other, No abrasion, No clubbing, No cyanosis, No ecchymosis, No laceration, No no lower extremity edema bilateral, No significant edema, No tenderness, No wound Neurologic/Psychiatric: No operations clerk II-XII nml as tested, No no motor/sensory deficits, No alert, No normal mood/affect, No oriented x 3, No abnormal cerebellar tests, No abnormal operations clerk II-XII, No abnormal gait, No aphasia, No EOM palsy, No facial droop, No motor weakness, No sensory deficit, No depressed affect, No disoriented x 3, No other, No grossly intact, No power is 5/5 both on sides Skin: No normal color, No warm/dry, No cyanosis, No cool, No diaphoresis, No damp, No ecchymosis, No jaundice, No mottled, No pallor, No rash, No tattoos/ piercings, No ulcerations, No rash on exposed areas, No ulcerations on exposed areas, No other Results/Procedures: Labs Laboratory Tests 04/25/17 17:11: Glucometer 193H 04/25/17 20:30: Glucometer 139H 04/26/17 04:40: White Blood Count 29.1H, Red Blood Count 3.90L, Hemoglobin 10.7L, Hematocrit 32L , Mean Corpuscular Volume 82, Mean Corpuscular Hemoglobin 27, Mean Corpuscular Hemoglobin Concent 33, Red Cell Distribution Width 14.4, Platelet Count 281, Mean Platelet Volume 10.6H, Neutrophils (%) (Auto) 69, Lymphocytes (%) (Auto) 12 , Monocytes (%) (Auto) 16H, Eosinophils (%) (Auto) 2, Basophils (%) (Auto) 1, Neutrophils # (Auto) 20.1H, Lymphocytes # (Auto) 3.4, Monocytes # (Auto) 4.8H, Eosinophils # (Auto) 0.6H, Basophils # (Auto) 0.2H, Neutrophils % (Manual) 75, Lymphocytes % (Manual) 8, Monocytes % (Manual) 14, Eosinophils % (Manual) 0, Basophils % (Manual) 0, Band Neutrophils 0, Reactive Lymphocytes 3, Polychromasia SLIGHT, Anisocytosis SLIGHT, Sodium Level 134L, Potassium Level 4.1, Chloride Level 101, Carbon Dioxide Level 19L, Anion Gap 14, Blood Urea Nitrogen 12, Creatinine 0.87, Estimat Glomerular Filtration Rate > 60, BUN/ Creatinine Ratio 14, Glucose Level 96, Calcium Level 8.4L, Phosphorus Level 2.4 , Magnesium Level 1.9 04/26/17 04:45: Blood Gas Puncture Site R RAD, Blood Gas Patient Temperature 99.4, Arterial Blood pH 7.42, Arterial Blood Partial Pressure CO2 30L, Arterial Blood Partial Pressure O2 62L, Arterial Blood HCO3 19L, Arterial Blood Total CO2 19.7L, Arterial Blood Oxygen Saturation 93L, Arterial Blood Base Excess -4.7L, Walt Test YES-POS, Blood Gas Ventilator Setting NO, Blood Gas Inspired Oxygen 35% BIPAP Microbiology 04/24/17 Blood Culture - Preliminary, Resulted No growth 04/25/17 Influenza Types A,B Antigen (JORGE) - Final, Complete A/P: Assessment/Dx: Pneumonia, Sepsis, Metabolic acidosis, PAD, Mild CAD, History of stroke, Permanent pacemaker for complete heart block, Aortic stenosis Plan: Severe sepsis and pneumonia. In respiratory distress. Defer to primary team and pulmonology. Shortness of breath could also be secondary to congestive heart failure. Increased BNP. Fluid status is difficult to manage since the patient requires IV fluids for severe sepsis and metabolic acidosis, however, that could make heart failure worse. If given a choice I would recommend that IV fluids be given for severe sepsis. Poor prognosis. Repeat echocardiogram. Peripheral arterial disease, moderately severe on peripheral angiography of (He had single-vessel run-off on the right side and a dual-vessel run- off below the knee) and severe on seg pressures of 11/26/16 Last peripheral angio on 01/19/17: 99 to 100% mid vessel occlusion of the left superficial femoral artery which was reduced to less than 10% following successful balloon angioplasty. Two-vessel runoff in the left leg consisting of the peroneal and anterior tibial arteries which themselves are of a small caliber and are diffusely diseased (mod to severe)/ The left distal anterior tibial artery is occluded. 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 This was functioning normally per last interrogation of November 2012. Has since not been compliant with f/u Severe aortic stenosis. Echo of 01/18/17: AoV area 0.8 sq cm with mean grad 33 mmHg, LVEF 60-65%, grade I diastolic dysfunction, mod TR, PASP 45 mmHg Mild coronary artery disease on cardiac catheterization of February 2009. Last myocardial perfusion imaging was on 01/18/2011. It did not show any myocardial ischemia or infarction and left ventricular ejection fraction was 70%. Chronic warfarin anticoagulation following a stroke several years ago. The patient does not have any documented atrial fibrillation or significant carotid arterial disease. 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 Hyperlipidemia being treated with atorvastatin and Trilipix. Mild to moderate carotid arterial disease per ultrasonography of May 2011. Thank you for your consultation. Please call me if you have any questions. Abdirashid Santos MD, FACP, FACC, FSCAI, FHRS, CCDS Interventional Cardiology Cardiac Electrophysiology Vascular Medicine and Endovascular Interventions Alexx SANTOS MD Apr 26, 2017 1:46 pm
[2017-04-26] MEDS: DAKIN'S 1/4 STRENGTH (0.125%) 473 ML BTL TOP SCH (14:38)
--- NOTE | 2017-04-26 15:17 | Occ Therapy Progress Note ---
Therapy Progress Note OT order received. Chart reviewed. Pt. on bipap. Attempted to treat pt. after speaking with nursing and RT. Pt. declines at this time and states that he doesn't "feel like it" at this time. Family in room and requesting for pt. to be swabbed. RT has stated that pt. has humidifier in bipap at this time that can't be taken off. Family has questions about this so OT notifies RT for family training. Notify nursing that pt. declines exercises at this time. Will attempt back tomorrow when pt. hopefully off of bipap. 1, visit Declined 1330 NEEMA MAYA OT Apr 26, 2017 15:17
--- NOTE | 2017-04-26 16:12 | ST Dysphagia Evaluation ---
Speech Evaluation-General Medical Diagnosis CHF Exacerbation, Pulmonary Edema, Sepsis, Pneumonia Onset Date: Apr 24, 2017 Therapy Diagnosis Therapy Diagnosis: Mild Oral Dysphagia Precautions Precautions: Aspiration Precautions/Isolations: Standard Precautions Referral Referring Physician: Dr. Diana Ferreira Reason for Referral: Evaluation/Treatment Clinical Bedside Swallowing Evaluation Medical History Pertinent Medical History: DM, HTN Current History The patient was currently admitted to [facility] with CHF exacerbation. The patient's respiratory status has fluctuated since arrival, requiring BiPAP, and currently, the use of Vaso-therm. Reviewed History: Yes Speech PLF/Current-Dysphagia Prior Level of Function The patient denied prior challenges with swallowing or any signs/symptoms of aspiration with any consistency he currently consumes. Per patient's family member, the patient consumes a regular diet with thin liquids at home. Subjective The patient was seated upright in bed upon entrance. The patient greeted the clinician and was agreeable to participation in the dysphagia evaluation. At this time, the patient is receiving supplemental humidified oxygen via Vaso- therm with the settings at 50% O2, 30 LPM, and 33 degrees Celsius. With the current settings, the patient's SpO2% was 93% prior to bolus trials with respirations at 30 bpm. Chest Exam: (04/26/17): Overall stable aeration since the prior study with near complete opacification of the right lung and large consolidation in the left lung. Cognitive Status Patient Orientation: Person, Place, Time, Situation Oral Motor Skills Dentition: Natural (Poor condition) Ability to Follow Directions: Good The patient's diet is "Heart Healthy" in the "order history," however, the patient has been placed NPO until completion of the bedside swallowing evaluation. Oral Expression Ability: Mild Impairment Voice Voice Phonatory-Based Quality: Weak, Glottal Blackman Voice Pitch: Normal Voice Loudness: Normal Face Facial Symmetry: Symmetrical Oral-Facial Assessment Oral-Facial Dentition: Normal Labial Seal Description: Normal Smile: Normal Puff Cheeks: Normal Lingual Protrusion: Normal (To note, the patient had several lesions or sores on the lingual surface. Per patient, "I bite my tongue a lot.") Lingual ROM: Normal Lingual Strength: Normal Pharynx Velopharyngeal Move.: Normal Volitional Dry Swallow: Yes (The patient denied odynophagia, however, stated, "I have a dry spot back there that is getting better.") Dysphagia Evaluation Consistencies Presented: Thin Liquid (Via Teaspoon and Cup Sip), Pureed Oral Phase: Oral Residue - Oral residue was noted on dentition, as well as, the lingual and buccal surfaces. The patient was able to minimize residual material with a subsequent dry swallow. - The patient demonstrated grimacing upon swallowing. The patient continued to deny odynophagia with any consistency tested. - No signs/symptoms of aspiration were demonstrated throughout the evaluation. The patient consumed 4 ounces (one container) of pudding, eight teaspoons of water, and eight ounces of water via cup sip. The patient's vocal quality remained clear. In addition, the patient's SpO2% increased to 98% throughout bolus trials. Dietary Recommendations: Pureed (Due to the visible lesions on the lingual surface.) Liquid Recommendations: Thin (NO STRAWS) Crush medication and place in puree for administration. Swallowing Precautions: Alternate Liquids/Solids ("liquids and puree"), Liquids from Cup, No Straw, Oral Supervision Caregiver, Small Bites and Sips ( Single sips.) Dysphagia Evaluation Summary The patient demonstrated mild oral dysphagia characterized by the presence of lingual and buccal residue secondary to decreased lingual range of motion. Due to the patient's fluctuating and severe respiratory status, slow progression towards PO intake is recommended. The patient should be supervised throughout PO intake to ensure signs/symptoms of aspiration do not appear with increased fatigue. If right lung exam does not improve or worsen, consider modified barium swallow to definitively rule out silent aspiration. Speech Short Term Goals Short Term Goals Short Term Goals 1. The patient will demonstrate swallowing strategies to reduce risks of aspiration and laryngeal penetration with PO intake. Time Frame-STG: Three Days Speech Er Manager Goals Fdc Goals 1. The patient will tolerate the least restrictive diet without signs/symptoms of aspiration or laryngeal penetration. Time Frame: One Week Speech-Plan Treatment Plan Speech Therapy Treatment Plan: Continue Plan of Care Continue skilled speech pathology to target swallowing safety and strategies. Treatment Duration: May 03, 2017 Frequency: 3 times per week Estimated Hrs Per Day: .25 hour per day Rehab Potential: Guarded Safety Risks/Education Teaching Recipient: Patient Teaching Methods: Handout (Transcribed on in-room white board.), Discussion Response to Teaching: Verbalize Understanding, Reinforcement Needed Education Topics Provided: Results, Recommendations, Swallowing Strategies Time Speech Therapy Time In: 15:50 Speech Therapy Time Out: 16:10 Total Billed Time: 30 Billed Treatment Time 1, LAURIE PARKER Apr 26, 2017 16:12
[2017-04-26] MEDS: CLOPIDOGREL 75 MG (PLAVIX) TABLET PO SCH (17:04)
[2017-04-27] VITALS (21 sets, daily range): BP systolic 103–155; BP diastolic 57–96
[2017-04-27 01:03] LABS: ABG BASE EXCESS -3.2 MMOL/L (-2.5-2.5); ABG OXYGEN SATURATION 93 % (94-100); ABG PCO2 27 MMHG (35-45); ABG PH 7.48 (7.37-7.43); ABG PO2 61 MMHG (79-93); ABG TCO2 20.4 MMOL/L (21.0-31.0)
[2017-04-27 01:04] LABS: ALLENS TEST YES-POS; INSPIRED O2 35% BIPAP; PATIENT TEMP 100; VENTILATOR NO
[2017-04-27] MEDS: PIPERACILLIN/TAZOBACTAM 4.5 GM/D5W 100 ML IVPB IV SCH ×4 (01:32→09:22)
[2017-04-27] MEDS ORDERED: morphine INJ 4 MG/ML 1 ML (VIAL/SYRINGE) IVP PRN (01:45)
[2017-04-27 04:51] LABS: BASOPHILS # (AUTO) 0.1 10^3/uL (0.0-0.1); BASOPHILS % (AUTO) 0 % (0-10); EOSINOPHILS # (AUTO) 0.2 10^3/uL (0.0-0.3); EOSINOPHILS % (AUTO) 1 % (0-10); HEMATOCRIT 29 % (40-54); HEMOGLOBIN 9.7 G/DL (13.3-17.7); LYMPHOCYTES # (AUTO) 1.3 X 10^3 (1.0-4.0); LYMPHOCYTES % (AUTO) 6 % (12-44); MEAN CORPUSCULAR HEMOGLOBIN 27 PG (25-34); MEAN CORPUSCULAR HGB CONC 33 G/DL (32-36); MEAN CORPUSCULAR VOLUME 82 FL (80-99); MEAN PLATELET VOLUME 10.4 FL (7.4-10.4); MONOCYTES # (AUTO) 3.1 X 10^3 (0.0-1.0); MONOCYTES % (AUTO) 15 % (0-12); NEUTROPHILS # (AUTO) 15.9 X 10^3 (1.8-7.8); NEUTROPHILS % (AUTO) 77 % (42-75); PLATELET COUNT 289 10^3/uL (130-400); RED BLOOD COUNT 3.56 10^6/uL (4.35-5.85); RED CELL DISTRIBUTION WIDTH 14.4 % (10.0-14.5); WHITE BLOOD COUNT 20.6 10^3/uL (4.3-11.0)
[2017-04-27 04:56] LABS: INR 3.3 (0.8-1.4); PROTHROMBIN TIME PATIENT 32.9 SEC (12.2-14.7)
[2017-04-27 05:04] LABS: BUN/CREATININE RATIO 16; CALCIUM 8.4 MG/DL (8.5-10.1); CARBON DIOXIDE 20 MMOL/L (21-32); CHLORIDE 103 MMOL/L (98-107); CREATININE SERUM 0.97 MG/DL (0.60-1.30); GFR ESTIMATED > 60; GLUCOSE 159 MG/DL (70-105); MAGNESIUM 1.6 MG/DL (1.8-2.4); PHOSPHORUS 2.5 MG/DL (2.3-4.7); POTASSIUM 3.7 MMOL/L (3.6-5.0); SODIUM 135 MMOL/L (135-145)
[2017-04-27] MEDS: POTASSIUM CL 10MEQ/50ML IVPB 50 ML IV SCH ×5 (05:22→10:14)
[2017-04-27] MEDS: KCL 20 MEQ TAB (K-DUR) PO SCH (05:22)
[2017-04-27] MEDS: CATHETER FLUSH 10 ML SYR IV SCH ×3 (05:23→19:35)
[2017-04-27] MEDS: MAGNESIUM 1 GM/100 ML IVPB 100 ML IV SCH ×3 (05:24→07:04)
[2017-04-27] MEDS: inSUlin (REGULAR) HUMAN 1 UNIT/0.01 ML (CHARGE PER UNIT) SC SCH ×2 (05:55→11:52)
--- NOTE | 2017-04-27 05:57 | Pulmonary Progress Note ---
Subjective Time Seen by Provider: 06:04 Subjective/Events-last exam pt is doing worse respiratory cantu and is requiring BiPAP. Exam Exam Vital Signs Date Time Temp Pulse Resp B/P (MAP) Pulse Ox O2 Delivery O2 Flow Rate FiO2 04/27/17 05:00 82 28 115/57 (76) 99 NIV Bilevel 35.00 04/27/17 04:10 99.4 04/27/17 04:00 93 25 110/57 (74) 91 NIV Bilevel 35.00 04/27/17 04:00 97 NIV Bilevel 35.00 04/27/17 03:00 93 28 119/67 (84) 93 NIV Bilevel 35.00 04/27/17 02:40 NIV Bilevel 35.00 04/27/17 02:40 114 35 94 35.00 04/27/17 02:29 Vapotherm 60.00 30.00 04/27/17 02:00 89 28 115/63 (80) 91 NIV Bilevel 35.00 04/27/17 01:00 90 04/27/17 01:00 90 35 113/61 (78) 93 NIV Bilevel 35.00 04/27/17 00:36 96 39 93 35.00 04/27/17 00:00 96 36 103/65 (78) 93 NIV Bilevel 35.00 04/26/17 23:50 94 NIV Bilevel 35.00 04/26/17 23:45 97.7 04/26/17 23:00 106 41 113/78 (90) 96 NIV Bilevel 35.00 04/26/17 22:28 94 28 95 35.00 04/26/17 22:00 94 34 106/70 (82) 93 NIV Bilevel 35.00 04/26/17 21:00 106 34 102/78 (86) 92 NIV Bilevel 35.00 04/26/17 20:09 95 29 95 35.00 04/26/17 20:00 99.4 90 18 108/51 (70) 92 NIV Bilevel 35.00 04/26/17 19:45 95 NIV Bilevel 35.00 04/26/17 19:00 91 04/26/17 19:00 91 32 128/91 (103) 90 NIV Bilevel 35.00 04/26/17 18:00 80 21 118/62 (80) 95 NIV Bilevel 35.00 04/26/17 17:00 80 19 110/58 (75) 93 NIV Bilevel 35.00 04/26/17 16:45 95 NIV Bilevel 35 04/26/17 16:33 87 26 92 35.00 04/26/17 16:00 97 32 116/61 (79) 91 NIV Bilevel 35.00 04/26/17 16:00 NIV Bilevel 35.00 04/26/17 15:00 84 23 102/61 (75) 94 NIV Bilevel 40.00 04/26/17 14:34 98 36 96 35.00 04/26/17 14:00 84 114/76 (89) 93 NIV Bilevel 40.00 04/26/17 13:00 79 102/55 (71) 92 NIV Bilevel 40.00 04/26/17 13:00 79 04/26/17 12:40 95 NIV Bilevel 35 04/26/17 12:30 87 26 91 35.00 04/26/17 12:00 84 105/55 (72) 92 NIV Bilevel 40.00 04/26/17 11:00 91 106/62 (77) 94 NIV Bilevel 40.00 04/26/17 10:00 93 103/52 (69) 94 NIV Bilevel 40.00 04/26/17 09:52 96 30 92 35.00 04/26/17 09:22 97.8 NIV Bilevel 40.00 04/26/17 09:00 90 139/90 (106) 90 NIV Bilevel 35.00 04/26/17 08:55 95 NIV Bilevel 35 04/26/17 08:29 94 Vapotherm 30.00 50 04/26/17 08:00 85 112/67 (82) 95 NIV Bilevel 35.00 04/26/17 07:00 83 110/60 (77) 91 NIV Bilevel 35.00 04/26/17 07:00 98 04/26/17 06:39 92 27 93 35.00 04/26/17 06:00 86 104/62 (76) 92 NIV Bilevel 35.00 I & O 04/27/17 07:00 Intake Total 495 ml Output Total 2710 ml Balance -2215 ml General Appearance: WD/WN, Anxious, Chronically ill, Moderate Distress Neck: Normal Inspection, Supple Respiratory: Accessory Muscle Use, Crackles, Respiratory Distress Cardiovascular: Regular Rate, Rhythm, No Murmur Capillary Refill: Less Than 3 Seconds Gastrointestinal: normal bowel sounds, non tender Extremity: Normal Capillary Refill, Normal Inspection, Normal Range of Motion, Non Tender, No Calf Tenderness, Swelling Neurologic/Psychiatric: Alert, Oriented x3, Other Skin: Normal Color, Warm/Dry Lymphatic: No Adenopathy Results Lab Laboratory Tests 04/26/17 04:40 04/27/17 04:30 Assessment/Plan Assessment/Plan Sepsis with pneumonia Acute respiratory failure -BIPAP trial pt on Vapotherm -Will give 1 dose of bumex 2mg IV X 1 -Pt is DNR Hyponatremia -monitor CAD HX Hx of CVA with left sided paralysis CXR and labs reviewed. 233 Clinical Quality Measures DVT/VTE Risk/Contraindication: Risk Factor Score Per Nursin RFS Level Per Nursing on Admit: 4+=Very High LEI MALDONADO DO Apr 27, 2017 05:57
[2017-04-27] MEDS ORDERED: methylPREDNISolone 125 MG (Solu-MEDROL) VIAL IVP ONE (06:00)
[2017-04-27] MEDS ORDERED: methylPREDNISolone 40 MG/ML (Solu-MEDROL) VIAL IV SCH (06:00)
[2017-04-27] MEDS: RT-ALBUTEROL/IPRATROPIUM 3 ML (DUONEB) VIAL INH SCH ×4 (07:07→18:42)
--- NOTE | 2017-04-27 07:47 | Progress Note-Hospitalist ---
Subjective HPI/CC On Admission Date Seen by Provider: Apr 27, 2017 Time Seen by Provider: 07:25 CC: Dyspnea HPI: This is an 82-year-old white male clinic patient of Dr. Monet in [place] with a history of permanent pacemaker due to complete heart block placed by Dr. Heath and a history of stroke with left-sided weakness who presents to the ER with dyspnea after failed Keflex treatment for 3 weeks for upper respiratory illness. He was found to have extensive bilateral pneumonia and congestive heart failure with BNP elevation at 1218 and requiring BiPAP and severely poor prognosis. He is DO NOT RESUSCITATE which is reasonable and patient is sleeping currently on BiPAP vitals remained stable but grave prognosis shared by other consultants. Subjective/Events-last exam Pt reports having a rough night but feeling better now. BiPAP removed while I was in room with patient and placed on Vapotherm. Discussed gravity of illness and concerns about lack of improvement. Objective Exam Vital Signs Vital Sign - Last 12Hours 04/24/17 04/25/17 21:29 01:02 Temp 98.3 Pulse 102 Resp 20 B/P (MAP) 118/60 (79) Pulse Ox 93 O2 Delivery Nasal Cannula O2 Flow Rate 4.00 FiO2 45 Capillary Refill : Less Than 3 Seconds General Appearance: WD/WN, Mild Distress Respiratory: Accessory Muscle Use, Rhonci Cardiovascular: No Murmur, Tachycardia Gastrointestinal: Non Tender, Soft, Other (colostomy in place) Extremity: No Calf Tenderness, No Pedal Edema, Other (gauze wrapped around left heel) Neurologic/Psychiatric: Alert, Oriented x3 Results/Procedures Lab Laboratory Tests 04/27/17 04:30 Assessment/Plan Assessment and Plan Assess & Plan/Chief Complaint Pneumonia Diagnosis/Problems Diagnosis/Problems (1) Sepsis Status: Acute Assessment & Plan: due to pneumonia- CXR unchanged Continue Zosyn and Levaquin BC NGTD Flu Negative WBC down today Qualifiers: Qualified Codes: A41.9 - Sepsis, unspecified organism (2) Pneumonia Status: Acute Assessment & Plan: Abx as above On BiPAP trial Vapotherm Pulm consulted, appreciate recs Steroids resumed Qualifiers: (3) CHF exacerbation Status: Acute Assessment & Plan: Echo shows EF 20-25% Bumex again today Cardiology consulted, appreciate recs (4) Dysphagia Assessment & Plan: Speech eval done- rec thin liquids and pureed food YAMILET,MELODIE M MD Apr 27, 2017 7:47 am
[2017-04-27] MEDS ORDERED: BUMETANIDE 1 MG/4 ML (BUMEX) VIAL IV NR (08:00)
[2017-04-27] MEDS: CLOPIDOGREL 75 MG (PLAVIX) TABLET PO SCH (08:08)
[2017-04-27] MEDS: NS IV 1000 ML 1,000 ML IV SCH (08:11)
[2017-04-27] MEDS: morphine INJ 4 MG/ML 1 ML (VIAL/SYRINGE) IVP PRN ×2 (08:12→11:58)
--- NOTE | 2017-04-27 08:53 | Diagnostic Imaging Report ---
Portable erect AP chest at 407 hours. INDICATION: Sepsis. FINDINGS: As noted on the prior exam of 04/26/17, there is a diffuse alveolar/interstitial pulmonary infiltrate throughout much of the left lung and a sizable area of abnormal parenchymal density in the left perihilar region. These findings are quite similar to the prior exam. The amount of fluid along the periphery of the right apex seen on the prior study has increased, however. The fluid now measures approximately 1.5 CM in maximum depth as opposed to 0.7 cm on the prior study. The heart size is stable. The mediastinum is not widened. The osseous structures are intact. The left-sided pacemaker is unchanged in position. IMPRESSION: 1. The overall appearance of the chest has not changed significantly since the prior exam. There are still diffuse alveolar/interstitial pulmonary infiltrates bilaterally, particularly involving the right lung. There has been an increase in the amount of fluid along the periphery of the right apex. 2. A followup exam would be recommended for continued evaluation. Dictated by: Dictated on workstation # [id number]
[2017-04-27] MEDS: DAKIN'S 1/4 STRENGTH (0.125%) 473 ML BTL TOP SCH (09:22)
--- NOTE | 2017-04-27 11:01 | Speech Therapy Progress Note ---
Therapy Progress Note Attempted follow up with the patient on this date. The patient has returned to BiPAP due to respiratory distress. At this time, follow up on the patient's swallowing function is not possible. The clinician will continue to follow the patient and monitor his process throughout his stay. LAURIE ROSS Apr 27, 2017 11:01
[2017-04-27] MEDS: methylPREDNISolone 40 MG/ML (Solu-MEDROL) VIAL IV SCH ×2 (11:51→18:30)
--- NOTE | 2017-04-27 12:37 | Cardiology Progress Note ---
Cardiology SOAP Progress Note Subjective: respiratory distress. Objective: I&O/Vital Signs Vital Sign - Last 12Hours 04/27/17 04/27/17 04/27/17 04/27/17 01:00 01:00 02:00 02:29 Pulse 90 90 89 Resp 35 28 B/P (MAP) 113/61 (78) 115/63 (80) Pulse Ox 93 91 O2 Delivery NIV Bilevel NIV Bilevel Vapotherm O2 Flow Rate 35.00 35.00 60.00 30.00 04/27/17 04/27/17 04/27/17 04/27/17 02:40 02:40 03:00 04:00 Pulse 114 93 Resp 35 28 B/P (MAP) 119/67 (84) Pulse Ox 94 93 97 O2 Delivery NIV Bilevel NIV Bilevel NIV Bilevel O2 Flow Rate 35.00 35.00 35.00 35.00 04/27/17 04/27/17 04/27/17 04/27/17 04:00 04:10 05:00 06:00 Temp 99.4 Pulse 93 82 79 Resp 25 28 26 B/P (MAP) 110/57 (74) 115/57 (76) 111/58 (75) Pulse Ox 91 99 94 O2 Delivery NIV Bilevel NIV Bilevel NIV Bilevel O2 Flow Rate 35.00 35.00 35.00 04/27/17 04/27/17 04/27/17 04/27/17 07:00 07:00 07:07 07:27 Pulse 76 77 83 Resp 31 23 B/P (MAP) 110/73 (85) Pulse Ox 94 94 96 O2 Delivery NIV Bilevel Vapotherm O2 Flow Rate 35.00 35.00 25.00 FiO2 60 04/27/17 04/27/17 04/27/17 04/27/17 07:30 07:42 08:00 08:00 Temp 98.1 Pulse 107 Resp 23 B/P (MAP) 155/96 (115) Pulse Ox 92 89 O2 Delivery Vapotherm NIV Bilevel NIV Bilevel O2 Flow Rate 60.00 40.00 35.00 25.00 04/27/17 04/27/17 04/27/17 04/27/17 08:00 08:04 08:12 09:00 Pulse 100 79 Resp 26 26 B/P (MAP) 106/58 (74) Pulse Ox 89 92 O2 Delivery NIV Bilevel NIV Bilevel NIV Bilevel O2 Flow Rate 35.00 35.00 40.00 40.00 04/27/17 04/27/17 04/27/17 04/27/17 10:00 10:53 11:02 11:02 Pulse 81 75 Resp 22 26 B/P (MAP) 117/64 (81) Pulse Ox 95 94 96 O2 Delivery NIV Bilevel Vapotherm Vapotherm O2 Flow Rate 40.00 40.00 30.00 60.00 25.00 FiO2 60 04/27/17 04/27/17 11:53 12:05 Temp 97.4 Pulse Ox 95 O2 Delivery Vapotherm O2 Flow Rate 25.00 FiO2 60 Intake and Output 04/27/17 00:00 Intake Total 150 ml Output Total 1750 ml Balance -1600 ml Weight (Pounds): 166 Weight (Ounces): 0.6 Weight (Calculated Kilograms): 75.077769 Constitutional: appears stated age, apparent distress Respiratory: respiratory distress, crackles Cardiovascular: regular rate-rhythm, tachycardia, S1 and S2, systolic murmur Gastrointestional: No tender, No soft, No round, No distended, No pulsatile mass, No organomegaly, No guarding, No rebound, No tenderness, No hernia, No mass, No audible bowel sounds, No abnormal bowel sounds, No abdominal bruits, No spleenomegaly, No other Extremities: No normal range of motion, No non-tender, No normal inspection, No pedal edema, No calf tenderness, No normal capillary refill, No pelvis stable , No calf tenderness, No inflammation, No pedal edema, No slow capillary refill , No swelling, No other, No abrasion, No clubbing, No cyanosis, No ecchymosis, No laceration, No no lower extremity edema bilateral, No significant edema, No tenderness, No wound Neurologic/Psychiatric: No parts salesperson II-XII nml as tested, No no motor/sensory deficits, No alert, No normal mood/affect, No oriented x 3, No abnormal cerebellar tests, No abnormal parts salesperson II-XII, No abnormal gait, No aphasia, No EOM palsy, No facial droop, No motor weakness, No sensory deficit, No depressed affect, No disoriented x 3, No other, No grossly intact, No power is 5/5 both on sides Skin: No normal color, No warm/dry, No cyanosis, No cool, No diaphoresis, No damp, No ecchymosis, No jaundice, No mottled, No pallor, No rash, No tattoos/ piercings, No ulcerations, No rash on exposed areas, No ulcerations on exposed areas, No other Results/Procedures: Labs Laboratory Tests 04/26/17 14:25: Glucometer 150H 04/26/17 15:50: Glucometer 140H 04/26/17 21:34: Glucometer 287H 04/27/17 00:58: Blood Gas Puncture Site R BRACH, Blood Gas Patient Temperature 100, Arterial Blood pH 7.48H, Arterial Blood Partial Pressure CO2 27L, Arterial Blood Partial Pressure O2 61L, Arterial Blood HCO3 20L, Arterial Blood Total CO2 20.4L, Arterial Blood Oxygen Saturation 93L, Arterial Blood Base Excess -3.2L, Walt Test YES-POS, Blood Gas Ventilator Setting NO, Blood Gas Inspired Oxygen 35% BIPAP 04/27/17 04:30: White Blood Count 20.6H, Red Blood Count 3.56L, Hemoglobin 9.7L, Hematocrit 29L , Mean Corpuscular Volume 82, Mean Corpuscular Hemoglobin 27, Mean Corpuscular Hemoglobin Concent 33, Red Cell Distribution Width 14.4, Platelet Count 289, Mean Platelet Volume 10.4, Neutrophils (%) (Auto) 77H, Lymphocytes (%) (Auto) 6L , Monocytes (%) (Auto) 15H, Eosinophils (%) (Auto) 1, Basophils (%) (Auto) 0, Neutrophils # (Auto) 15.9H, Lymphocytes # (Auto) 1.3, Monocytes # (Auto) 3.1H, Eosinophils # (Auto) 0.2, Basophils # (Auto) 0.1, Prothrombin Time 32.9H, INR Comment 3.3H, Sodium Level 135, Potassium Level 3.7, Chloride Level 103, Carbon Dioxide Level 20L, Anion Gap 12, Blood Urea Nitrogen 16, Creatinine 0.97, Estimat Glomerular Filtration Rate > 60, BUN/Creatinine Ratio 16, Glucose Level 159H, Calcium Level 8.4L, Phosphorus Level 2.5, Magnesium Level 1.6L 04/27/17 11:18: Glucometer 217H Microbiology 04/24/17 Blood Culture - Preliminary, Resulted No growth 04/25/17 Influenza Types A,B Antigen (JORGE) - Final, Complete A/P: Assessment/Dx: Pneumonia, Sepsis, Metabolic acidosis, PAD, Mild CAD, History of stroke, Permanent pacemaker for complete heart block, Aortic stenosis Plan: Severe sepsis and pneumonia. In respiratory distress. Defer to primary team and pulmonology. Shortness of breath could also be secondary to congestive heart failure. Increased BNP. Fluid status is difficult to manage since the patient requires IV fluids for severe sepsis and metabolic acidosis, however, that could make heart failure worse. If given a choice I would recommend that IV fluids be given for severe sepsis. Poor prognosis. Repeat echocardiogram shows poor LV systolic function.. Peripheral arterial disease, moderately severe on peripheral angiography of (He had single-vessel run-off on the right side and a dual-vessel run- off below the knee) and severe on seg pressures of 11/26/16 Last peripheral angio on 01/19/17: 99 to 100% mid vessel occlusion of the left superficial femoral artery which was reduced to less than 10% following successful balloon angioplasty. Two-vessel runoff in the left leg consisting of the peroneal and anterior tibial arteries which themselves are of a small caliber and are diffusely diseased (mod to severe)/ The left distal anterior tibial artery is occluded. 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 This was functioning normally per last interrogation of November 2012. Has since not been compliant with f/u Severe aortic stenosis. Echo of 01/18/17: AoV area 0.8 sq cm with mean grad 33 mmHg, LVEF 60-65%, grade I diastolic dysfunction, mod TR, PASP 45 mmHg Mild coronary artery disease on cardiac catheterization of February 2009. Last myocardial perfusion imaging was on 01/18/2011. It did not show any myocardial ischemia or infarction and left ventricular ejection fraction was 70%. Chronic warfarin anticoagulation following a stroke several years ago. The patient does not have any documented atrial fibrillation or significant carotid arterial disease. 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 Hyperlipidemia being treated with atorvastatin and Trilipix. Mild to moderate carotid arterial disease per ultrasonography of May 2011. Thank you for your consultation. Please call me if you have any questions. Abdirashid Santos MD, FACP, FACC, FSCAI, FHRS, CCDS Interventional Cardiology Cardiac Electrophysiology Vascular Medicine and Endovascular Interventions Alexx SANTOS MD Apr 27, 2017 12:37 pm
--- NOTE | 2017-04-27 14:15 | Occupational Therapy Eval ---
OT Evaluation-General/PLF Medical Diagnosis Admission Date Apr 24, 2017 at 22:30 Medical Diagnosis: CHF Exacerbation, Pulmonary Edema, Sepsis, Pneumonia Onset Date: Apr 24, 2017 Therapy Diagnosis Therapy Diagnosis: Weakness Height/Weight Height (Feet): 5 Height (Inches): 8.00 Weight (Pounds): 166 Weight (Ounces): 0.6 Precautions Precautions/Isolations: Fall Prevention, Standard Precautions Safety Interventions: None Weight Bear Status Weight Bearing Restriction: Weight Bearing/Tolerated Referral Physician: Dr. Hobbs Referral Reason: Activity Tolerance, Self Care, Evaluation/Treatment, Strengthening/ROM Medical History Pertinent Medical History: CVA, DM, HTN Additional Medical History pacemaker, left sided weakness, colostomy, renal failure, diabetes Current History Pt. came to hospital with dyspnea after failed keflex, upper respiratory illness , sepsis. Reviewed History: Yes Social History Home: Single Level Current Living Status: Significant Other Entry Into Home: Stairs With Railing Steps Into Home: 3 ADL-Prior Level of Function ADL PLOF Comments Pt. states that he had a caregiver that assisted him 2 times a week to shower. Pt. is unable to give much other history regarding ambulation and mobility. Pt. on vapotherm. Fatigues easily. OT Current Status Subjective Pt. does not state a pain level. Pt. states that he will be going home with his and he will have help at home. Appearance Pt. in bed. On vapotherm. Mental Status/Objective Patient Orientation: Unable to Assess Current Hand Dominance: Right Upper Extremity ROM Pt. is able to flex right shoulder to approximately 70 degrees. Limited due to weakness and tubing. Pt. has not movement on left UE due to previous CVA. Upper Extremity Coordination Pt. demonstrates impaired coordination due to weakness in right hand. ADL-Treatment Functional [place]ard Measure 0=Not Assessed/NA 4=Minimal Assistance 1=Total Assistance 5=Supervision or Setup 2=Maximal Assistance 6=Modified [place] 3=Moderate Assistance 7=Complete IndependenceIRFPAI Quality Coding Scale 6 Independent with activity with or without an assistive device 5 Patient requires set up or clean up by helper. Patient completes activity by themselves 4 Supervision or touching assist (CGA). [place] provide cues , steadying assist 3 The helper provides less than half the effort to complete the activity 2 The helper provides more than half the effort to complete the activity 1 Dependent. The helper does all the effort to complete an activity 7 Patient refused to complete or attempt activity 9 The patient did not perform the activity before the current illness or injury 88 Not attempted due to Medical conditions or safety concerns Eating (FIM): 4 (Pt. does request his ensure. Pt. is able to hold this after it is opened for him, and bring to his mouth. He takes several sips before spilling on himself. He requires for OT to cleanse his face.) Pt. in bed. Pt. has multiple issues at this time. Pt. on vapotherm. Multiple lines and tubing. Pt. has wound on left foot. Pt. is able to drink for OT and perform a few right UE exercises actively. However, declines sitting on side of bed. Pt. does allow OT to put bed into chair position and pt. is able to sit like this approximately 10 minutes. While in this position, pt. is able to attempt to push self up further to re-adjust self. Pt. requests to lay back down. All needs met and pt. put back into reclining position. Education OT Patient Education: Correct positioning, Exercise program, Progress toward Goal/Update tx plan, Purpose of tx/functional activities, Reviewed precautions, Rehab process, Transfer techniques Teaching Recipient: Patient Teaching Methods: Demonstration, Discussion Response to Teaching: Verbalize Understanding, Return Demonstration OT Short Term Goals Short Term Goals Time Frame: May 04, 2017 Eating(FIM): 5 Grooming(FIM): 3 Upper Body Dressing(FIM): 3 Toileting(FIM): 3 Transfers (B,C,W/C) (FIM): 3 Toilet/Commode Transfer(FIM): 3 Additional Short Term Goals: 1-Demonstrate ADL Tasks, 2-Verbalize Understanding , 3-ImproveStrength/Dmitri 1=Demonstrate adherence to instructed precautions during ADL tasks. 2=Patient will verbalize/demonstrate understanding of assistive devices/ modifications for ADL. 3=Patient will improve strength/tolerance for activity to enable patient to perform ADL's. OT Care Home Goals Community Health Director Goals Time Frame: May 18, 2017 Eating (FIM): 5 Grooming(FIM): 5 Upper Body Dressing(FIM): 4 Lower Body Dressing(FIM): 4 Toileting(FIM): 4 Transfers (B,C,W/C) (FIM): 4 Toilet/Commode Transfer(FIM): 7 Additional Goals: 1-Demonstrate ADL Tasks, 2-Verbalize Understanding, 3- ImproveStrength/Dmitri 1=Demonstrate adherence to instructed precautions during ADL tasks. 2=Patient will verbalize/demonstrate understanding of assistive devices/ modifications for ADL. 3=Patient will improve strength/tolerance for activity to enable patient to perform ADL's. OT Education/Plan Problem List/Assessment Assessment: Decreased Activ Tolerance, Decreased UE Strength, Dependent Transfers, Impaired Bed Mobility, Impaired Cognition, Impaired Coordination, Impaired Funct Balance, Impaired I ADL's, Impaired Self-Care Skills, Restricted Funct UE ROM Discharge Recommendations Plan/Recommendations: Continue POC Therapy D/C Recommendations: 24 hr Supervision Comment Discharge location and needs to be determined. Treatment Plan/Plan of Care Treatment,Training & Education: Yes Patient would benefit from OT for education, treatment and training to promote independence in ADL's, mobility, safety and/or upper extremity function for ADL' s. Plan of Care: ADL Retraining, Functional Mobility, UE Funct Exercise/Act Treatment Duration: May 18, 2017 Frequency: 5 times per week Estimated Hrs Per Day: .25 hour per day Agreement: Yes Rehab Potential: Guarded Time/GCodes Start Time: 13:45 Stop Time: 14:00 Total Time Billed (hr/min): 15 Billed Treatment Time 1, EVH x 15minutes NEEMA MAAY OT Apr 27, 2017 14:15
[2017-04-27] MEDS ORDERED: GLYCOPYRROLATE 0.2 MG/ML (ROBINUL) 2 ML VIAL IV PRN (16:45)
[2017-04-27] MEDS ORDERED: ACETAMINOPHEN 650 MG SUPP (TYLENOL) PR PRN (16:45)
[2017-04-27] MEDS ORDERED: LORazepam ORAL CONCENTRATE 2 MG/ML 30 ML (ATIVAN) PO PRN (16:45)
[2017-04-27] MEDS ORDERED: BISACODYL 10 MG SUPP (DULCOLAX) PR PRN (16:45)
[2017-04-27] MEDS ORDERED: RT-ALBUTEROL/IPRATROPIUM 3 ML (DUONEB) VIAL INH PRN (16:45)
[2017-04-27] MEDS ORDERED: ARTIFICIAL TEARS OINT (LACRI-LUBE) 3.5 GM TUBE OU PRN (16:45)
[2017-04-27] MEDS ORDERED: ATROPINE 1% OPHTHALMIC SOLN 2 ML SL PRN (16:45)
[2017-04-27] MEDS ORDERED: morphine (ROXINOL) 10 MG/0.5 ML oral conc 0.5 ML PO PRN (16:45)
[2017-04-27] MEDS ORDERED: ARTIFICAL TEARS 0.4 ML UNIT DOSE (REFRESH PLUS) OU PRN (16:45)
[2017-04-27] MEDS ORDERED: SALIVA STIMULANT MOUTH SPRAY (BIOTENE) 1.5 OZ MM PRN (16:45)
[2017-04-27] MEDS ORDERED: ONDANSETRON 4 MG/2 ML (SDV) Z0FRAN IVP PRN (16:45)
[2017-04-27] MEDS ORDERED: PROMETHAZINE INJ 25 MG/ML (PHENERGAN) AMP IVP PRN (16:45)
[2017-04-27] MEDS ORDERED: SCOPOLAMINE 1.5 MG (TRANSDERM-SCOP) PATCH TOP SCH (17:00)
[2017-04-27] MEDS: morphine INJ 4 MG/ML 1 ML (VIAL/SYRINGE) IV PRN ×2 (17:01→19:35)
[2017-04-27] MEDS: LORazepam INJ 2 MG/ML (ATIVAN) VIAL IVP PRN ×2 (18:30→20:28)
[2017-04-28] MEDS: methylPREDNISolone 40 MG/ML (Solu-MEDROL) VIAL IV SCH ×3 (00:19→12:11)
[2017-04-28] MEDS: CATHETER FLUSH 10 ML SYR IV SCH ×3 (05:18→20:49)
[2017-04-28] MEDS: morphine INJ 4 MG/ML 1 ML (VIAL/SYRINGE) IV PRN ×6 (06:23→22:57)
[2017-04-28] MEDS: RT-ALBUTEROL/IPRATROPIUM 3 ML (DUONEB) VIAL INH SCH ×4 (06:39→19:34)
--- NOTE | 2017-04-28 08:43 | Speech Therapy Progress Note ---
Therapy Progress Note The patient was recently transferred to comfort measures due to his expected poor prognosis. At this time, Speech Pathology will sign off. If dysphagia concerns arise, please re-consult speech pathology for continued care. LAURIE ROSS Apr 28, 2017 08:43
[2017-04-28] MEDS: DAKIN'S 1/4 STRENGTH (0.125%) 473 ML BTL TOP SCH (09:07)
--- NOTE | 2017-04-28 10:27 | Occ Therapy Progress Note ---
Therapy Progress Note OT cancellation orders received. 1030 NEEMA MAYA OT Apr 28, 2017 10:27
--- NOTE | 2017-04-28 10:34 | Cardiology Progress Note ---
Cardiology SOAP Progress Note Subjective: Continues to be short of breath. Objective: I&O/Vital Signs Vital Sign - Last 12Hours 04/28/17 04/28/17 06:39 10:39 Pulse Ox 78 84 O2 Delivery High Flow N/C High Flow N/C O2 Flow Rate 10.00 11.00 Intake and Output 04/28/17 00:00 Intake Total 490 ml Output Total 1200 ml Balance -710 ml Weight (Pounds): 166 Weight (Ounces): 0.6 Weight (Calculated Kilograms): [id number] Constitutional: appears stated age, apparent distress Respiratory: respiratory distress, crackles Cardiovascular: regular rate-rhythm, tachycardia, S1 and S2, systolic murmur Gastrointestional: No tender, No soft, No round, No distended, No pulsatile mass, No organomegaly, No guarding, No rebound, No tenderness, No hernia, No mass, No audible bowel sounds, No abnormal bowel sounds, No abdominal bruits, No spleenomegaly, No other Extremities: No normal range of motion, No non-tender, No normal inspection, No pedal edema, No calf tenderness, No normal capillary refill, No pelvis stable , No calf tenderness, No inflammation, No pedal edema, No slow capillary refill , No swelling, No other, No abrasion, No clubbing, No cyanosis, No ecchymosis, No laceration, No no lower extremity edema bilateral, No significant edema, No tenderness, No wound Neurologic/Psychiatric: No ornamental brick installer II-XII nml as tested, No no motor/sensory deficits, No alert, No normal mood/affect, No oriented x 3, No abnormal cerebellar tests, No abnormal ornamental brick installer II-XII, No abnormal gait, No aphasia, No EOM palsy, No facial droop, No motor weakness, No sensory deficit, No depressed affect, No disoriented x 3, No other, No grossly intact, No power is 5/5 both on sides Skin: No normal color, No warm/dry, No cyanosis, No cool, No diaphoresis, No damp, No ecchymosis, No jaundice, No mottled, No pallor, No rash, No tattoos/ piercings, No ulcerations, No rash on exposed areas, No ulcerations on exposed areas, No other Results/Procedures: Labs Microbiology 04/24/17 Blood Culture - Preliminary, Resulted No growth 04/25/17 Influenza Types A,B Antigen (JORGE) - Final, Complete A/P: Assessment/Dx: Pneumonia, Sepsis, Metabolic acidosis, PAD, Mild CAD, History of stroke, Permanent pacemaker for complete heart block, Aortic stenosis Plan: Severe sepsis and pneumonia. In respiratory distress. Defer to primary team and pulmonology. Shortness of breath could also be secondary to congestive heart failure. Increased BNP. Fluid status is difficult to manage since the patient requires IV fluids for severe sepsis and metabolic acidosis, however, that could make heart failure worse. If given a choice I would recommend that IV fluids be given for severe sepsis. Poor prognosis. Repeat echocardiogram shows poor LV systolic function.. Peripheral arterial disease, moderately severe on peripheral angiography of (He had single-vessel run-off on the right side and a dual-vessel run- off below the knee) and severe on seg pressures of 11/26/16 Last peripheral angio on 01/19/17: 99 to 100% mid vessel occlusion of the left superficial femoral artery which was reduced to less than 10% following successful balloon angioplasty. Two-vessel runoff in the left leg consisting of the peroneal and anterior tibial arteries which themselves are of a small caliber and are diffusely diseased (mod to severe)/ The left distal anterior tibial artery is occluded. 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 This was functioning normally per last interrogation of November 2012. Has since not been compliant with f/u Severe aortic stenosis. Echo of 01/18/17: AoV area 0.8 sq cm with mean grad 33 mmHg, LVEF 60-65%, grade I diastolic dysfunction, mod TR, PASP 45 mmHg Mild coronary artery disease on cardiac catheterization of February 2009. Last myocardial perfusion imaging was on 01/18/2011. It did not show any myocardial ischemia or infarction and left ventricular ejection fraction was 70%. Chronic warfarin anticoagulation following a stroke several years ago. The patient does not have any documented atrial fibrillation or significant carotid arterial disease. 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 Hyperlipidemia being treated with atorvastatin and Trilipix. Mild to moderate carotid arterial disease per ultrasonography of May 2011. Thank you for your consultation. Please call me if you have any questions. Abdirashid Santos MD, FACP, FACC, FSCAI, FHRS, CCDS Interventional Cardiology Cardiac Electrophysiology Vascular Medicine and Endovascular Interventions Alexx SANTOS MD Apr 28, 2017 10:33
--- NOTE | 2017-04-28 13:12 | Progress Note-Hospitalist ---
Subjective HPI/CC On Admission Date Seen by Provider: Apr 28, 2017 Time Seen by Provider: 11:20 CC: Dyspnea HPI: This is an 82-year-old white male clinic patient of Dr. Monet in [place] with a history of permanent pacemaker due to complete heart block placed by Dr. Heath and a history of stroke with left-sided weakness who presents to the ER with dyspnea after failed Keflex treatment for 3 weeks for upper respiratory illness. He was found to have extensive bilateral pneumonia and congestive heart failure with BNP elevation at 1218 and requiring BiPAP and severely poor prognosis. He is DO NOT RESUSCITATE which is reasonable and patient is sleeping currently on BiPAP vitals remained stable but grave prognosis shared by other consultants. Subjective/Events-last exam Pt reports being more comfortable today and feeling well. Denies any complaints. Discussed with and patient about transition to comfort measures who are still in agreement. Patient states he is ready. Objective Exam Vital Signs Vital Signs Date Time Temp Pulse Resp B/P (MAP) Pulse Ox O2 Delivery O2 Flow Rate FiO2 04/24/17 21:29 98.3 102 20 118/60 (79) 93 Nasal Cannula 4.00 04/25/17 01:02 45 Capillary Refill : Less Than 3 Seconds General Appearance: No Apparent Distress, Chronically ill Respiratory: No Respiratory Distress, Decreased Breath Sounds Cardiovascular: Regular Rate, Rhythm, No Murmur Gastrointestinal: Normal Bowel Sounds, Non Tender, Soft Neurologic/Psychiatric: Alert, Oriented x3 Assessment/Plan Assessment and Plan Assess & Plan/Chief Complaint Pneumonia Diagnosis/Problems Diagnosis/Problems (1) Sepsis Status: Acute Assessment & Plan: due to pneumonia- CXR unchanged abx discussed for comfort measures Qualifiers: Qualified Codes: A41.9 - Sepsis, unspecified organism (2) Pneumonia Status: Acute Assessment & Plan: Pulm consulted, appreciate recs transition to comfort care so abx DC-ed Qualifiers: (3) CHF exacerbation Status: Acute Assessment & Plan: Echo shows EF 20-25% Cardiology consulted, appreciate recs (4) Dysphagia Assessment & Plan: Food as desires (5) Counseling regarding end of life decision making Assessment & Plan: Discussed with family and patient- he reports he is ready for and would like only comfort measures Orders placed for comfort care only Discussed with RN and RT MELODIE WOODARD MD Apr 28, 2017 1:12 pm
[2017-04-28] MEDS: LORazepam INJ 2 MG/ML (ATIVAN) VIAL IVP PRN ×2 (14:11→21:26)
[2017-04-29] MEDS: LORazepam INJ 2 MG/ML (ATIVAN) VIAL IVP PRN ×2 (00:16→07:47)
[2017-04-29] MEDS: morphine INJ 4 MG/ML 1 ML (VIAL/SYRINGE) IV PRN ×2 (01:07→09:48)
[2017-04-29] MEDS: CATHETER FLUSH 10 ML SYR IV SCH (06:45)
[2017-04-29] MEDS: RT-ALBUTEROL/IPRATROPIUM 3 ML (DUONEB) VIAL INH SCH (07:01)
[2017-04-29] MEDS: DAKIN'S 1/4 STRENGTH (0.125%) 473 ML BTL TOP SCH (07:49)
--- NOTE | 2017-04-29 10:34 | Discharge Summary-Hospitalist ---
Diagnosis/Chief Complaint Date of Admission Apr 24, 2017 at 10:30 pm Date of Discharge Discharge Time: 10:27 Admission Diagnosis Assessment: Pneumonia failed Kelfex duration of therapy 3 weeks by PCP Severe sepsis Metabolic acidosis PAD Mild CAD History of stroke w/left sided weakness Permanent pacemaker for complete heart block Aortic stenosis Hyponatremia Supratherapeutic INR holding Coumadin DM Discharge Diagnosis Pneumonia (1) Sepsis Status: Acute Assessment & Plan: due to pneumonia- CXR unchanged abx discussed for comfort measures (2) Pneumonia Status: Acute Assessment & Plan: Pulm consulted, appreciate recs transition to comfort care so abx DC-ed (3) CHF exacerbation Status: Acute Assessment & Plan: Echo shows EF 20-25% Cardiology consulted, appreciate recs (4) Dysphagia Assessment & Plan: Food as desires (5) Counseling regarding end of life decision making Assessment & Plan: Discussed with family and patient- he reports he is ready for and would like only comfort measures Orders placed for comfort care only Discussed with RN and RT Discharge Summary Discharge Physical Examination Allergies: Coded Allergies: No Known Drug Allergies (Unverified , 02/24/09) Vitals & I&Os Vital Signs Date Time Temp Pulse Resp B/P (MAP) Pulse Ox O2 Delivery O2 Flow Rate FiO2 04/29/17 07:01 Nasal Cannula 4.00 04/28/17 19:34 72 04/27/17 16:50 97.6 04/27/17 16:50 60 04/27/17 16:00 87 31 126/68 (87) Hospital Course Labs (last 24 hrs) Microbiology 04/24/17 Blood Culture - Preliminary, Resulted No growth 04/25/17 Influenza Types A,B Antigen (JORGE) - Final, Complete Discharge Home Medications: Active Scripts Active Reported Dakin's (Sodium Hypochlorite) 473 Ml Solution TP DAILY Clopidogrel (Clopidogrel Bisulfate) 75 Mg Tablet 75 Mg PO DAILY Jantoven (Warfarin Sodium) 5 Mg Tablet 7.5 Mg PO MO,WE,FR TAKES 1 & 1/2 OF A (5 MG) TABLET Januvia (Sitagliptin Phosphate) 100 Mg Tablet 100 Mg PO DAILY Metformin HCl 500 Mg Tablet 500 Mg PO BID WITH MEALS Jantoven (Warfarin Sodium) 5 Mg Tablet 5 Mg PO HUGGINS,,,SA Acetaminophen 325 Mg Tablet 650 Mg PO HS PRN TAKES 2 (325 MG) TABLETS Instructions to patient/family Please see electronic discharge instructions given to patient. Clinical Quality Measures DVT/VTE Risk/Contraindication: Risk Factor Score Per Nursin RFS Level Per Nursing on Admit: 4+=Very High Comfort Measures/ Cardiopulmonary Arrest: Asystole Date of : Apr 29, 2017 Time of : 10:27 Problem Qualifiers (1) Sepsis: Sepsis type: sepsis due to unspecified organism Qualified Codes: A41.9 - Sepsis, unspecified organism (2) Pneumonia: Aspiration pneumonia type: unspecified Laterality: bilateral Lung location: unspecified part of lung MELODIE WOODARD MD Apr 29, 2017 10:34 am
--- NOTE | 2017-04-29 11:23 | Cardiology Progress Note ---
Cardiology SOAP Progress Note Subjective: Significant shortness of breath. Objective: I&O/Vital Signs Vital Sign - Last 12Hours 04/29/17 07:01 O2 Delivery Nasal Cannula O2 Flow Rate 4.00 Intake and Output 04/29/17 00:00 Intake Total 700 ml Output Total 575 ml Balance 125 ml Weight (Pounds): 166 Weight (Ounces): 0.6 Weight (Calculated Kilograms): [id number] Constitutional: appears stated age, apparent distress Respiratory: respiratory distress, crackles Cardiovascular: regular rate-rhythm, tachycardia, S1 and S2, systolic murmur Gastrointestional: No tender, No soft, No round, No distended, No pulsatile mass, No organomegaly, No guarding, No rebound, No tenderness, No hernia, No mass, No audible bowel sounds, No abnormal bowel sounds, No abdominal bruits, No spleenomegaly, No other Extremities: No normal range of motion, No non-tender, No normal inspection, No pedal edema, No calf tenderness, No normal capillary refill, No pelvis stable , No calf tenderness, No inflammation, No pedal edema, No slow capillary refill , No swelling, No other, No abrasion, No clubbing, No cyanosis, No ecchymosis, No laceration, No no lower extremity edema bilateral, No significant edema, No tenderness, No wound Neurologic/Psychiatric: No tromper II-XII nml as tested, No no motor/sensory deficits, No alert, No normal mood/affect, No oriented x 3, No abnormal cerebellar tests, No abnormal tromper II-XII, No abnormal gait, No aphasia, No EOM palsy, No facial droop, No motor weakness, No sensory deficit, No depressed affect, No disoriented x 3, No other, No grossly intact, No power is 5/5 both on sides Skin: No normal color, No warm/dry, No cyanosis, No cool, No diaphoresis, No damp, No ecchymosis, No jaundice, No mottled, No pallor, No rash, No tattoos/ piercings, No ulcerations, No rash on exposed areas, No ulcerations on exposed areas, No other Results/Procedures: Labs Microbiology 04/24/17 Blood Culture - Preliminary, Resulted No growth 04/25/17 Influenza Types A,B Antigen (JORGE) - Final, Complete A/P: Assessment/Dx: Pneumonia, Sepsis, Metabolic acidosis, PAD, Mild CAD, History of stroke, Permanent pacemaker for complete heart block, Aortic stenosis Plan: Severe sepsis and pneumonia. In respiratory distress. Defer to primary team and pulmonology. Shortness of breath could also be secondary to congestive heart failure. Increased BNP. Fluid status is difficult to manage since the patient requires IV fluids for severe sepsis and metabolic acidosis, however, that could make heart failure worse. If given a choice I would recommend that IV fluids be given for severe sepsis. Poor prognosis. Repeat echocardiogram shows poor LV systolic function.. Peripheral arterial disease, moderately severe on peripheral angiography of (He had single-vessel run-off on the right side and a dual-vessel run- off below the knee) and severe on seg pressures of 11/26/16 Last peripheral angio on 01/19/17: 99 to 100% mid vessel occlusion of the left superficial femoral artery which was reduced to less than 10% following successful balloon angioplasty. Two-vessel runoff in the left leg consisting of the peroneal and anterior tibial arteries which themselves are of a small caliber and are diffusely diseased (mod to severe)/ The left distal anterior tibial artery is occluded. 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 This was functioning normally per last interrogation of November 2012. Has since not been compliant with f/u Severe aortic stenosis. Echo of 01/18/17: AoV area 0.8 sq cm with mean grad 33 mmHg, LVEF 60-65%, grade I diastolic dysfunction, mod TR, PASP 45 mmHg Mild coronary artery disease on cardiac catheterization of February 2009. Last myocardial perfusion imaging was on 01/18/2011. It did not show any myocardial ischemia or infarction and left ventricular ejection fraction was 70%. Chronic warfarin anticoagulation following a stroke several years ago. The patient does not have any documented atrial fibrillation or significant carotid arterial disease. 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 Hyperlipidemia being treated with atorvastatin and Trilipix. Mild to moderate carotid arterial disease per ultrasonography of May 2011. Thank you for your consultation. Please call me if you have any questions. Abdirashid Santos MD, FACP, FACC, FSCAI, FHRS, CCDS Interventional Cardiology Cardiac Electrophysiology Vascular Medicine and Endovascular Interventions Alexx SANTOS MD Apr 29, 2017 11:23
[2017-04-30] MEDS ORDERED: SCOPOLAMINE PATCH REMOVAL TP SCH (16:59)
== END 2017-04-29 12:08 | disposition expired | DRG 871 ==
LOC: EDUNIT# 21:29 → ER 21:30 → ICU 22:30 → 4TH 04-27 17:38
PROVIDERS: ADMIT Internal Medicine; ATTEND Internal Medicine
DX: A41.9 Sepsis, unspecified organism (principal); R65.20 Severe sepsis without septic shock; J18.9 Pneumonia, unspecified organism; J96.00 Acute respiratory failure, unspecified whether with hypoxia or hypercapnia; E87.2 Acidosis; I69.354 Hemiplegia and hemiparesis following cerebral infarction affecting left non-dominant side; E87.1 Hypo-osmolality and hyponatremia; Z66 Do not resuscitate; Z51.5 Encounter for palliative care; I11.0 Hypertensive heart disease with heart failure; I50.9 Heart failure, unspecified; E11.9 Type 2 diabetes mellitus without complications; I25.10 Atherosclerotic heart disease of native coronary artery without angina pectoris; I48.91 Unspecified atrial fibrillation; I70.245 Atherosclerosis of native arteries of left leg with ulceration of other part of foot; L97.529 Non-pressure chronic ulcer of other part of left foot with unspecified severity; I70.201 Unspecified atherosclerosis of native arteries of extremities, right leg; I08.2 Rheumatic disorders of both aortic and tricuspid valves; E78.00 Pure hypercholesterolemia, unspecified; R13.10 Dysphagia, unspecified; R79.1 Abnormal coagulation profile; Z95.0 Presence of cardiac pacemaker; Z79.84 Long term (current) use of oral hypoglycemic drugs; Z85.038 Personal history of other malignant neoplasm of large intestine; Z79.01 Long term (current) use of anticoagulants; Z85.828 Personal history of other malignant neoplasm of skin
CPT/HCPCS: 36415; 71045; 80048; 80053; 82805; 82962; 83605; 83735; 83880; 84100; 85007; 85025; 85027; 85610; 87040; 87070; 87075; 87081; 87205; 87804; 93005; 93306; 94640; 94660; 94760; 96365